=== PATIENT | female | born 1950 | race Caucasian/White ===

== ENCOUNTER 2018-05-07 16:20 | Emergency (ER) | payer MEDICARE ==
[2018-05-07] MEDS ORDERED: Ketorolac Tromethamine 30 MG/ML VIAL ONE (19:27)
[2018-05-07] MEDS ORDERED: Diazepam 5 MG TAB ONE (19:27)
--- NOTE | 2018-05-07 19:59 | RAD ---
RADIOGRAPH LUMBAR SPINE 3 VIEWS: 05/07/18 HISTORY: 67-year-old female with right sided low back pain for one week. COMPARISON: None. FINDINGS: There is mild left-convex curvature of the mid lumbar spine. There are transitional levels at the tho racolumbar junction and lumbosacral junction. For the purposes of this report, the level with bilater ally tiny, accessory ribs will be designated as L1, and the level with symmetrically slightly small b ilateral ribs will be designated as T12. The level at the lumbosacral junction will be designated as L5. Minimal anterior wedge compression deformity of T11 of indeterminate age, probably chronic. The lumba r proper vertebral body heights are maintained. At L5-S1, there is severe disc space narrowing with sclerosis. There are severe bilateral degenerativ e facet changes at L3-4, L4-5 and L5-S1. Mild grade I anterolisthesis of L4 on L5 with minimal disc s pace narrowing at that level. The rest of the disc spaces are maintained. Incompletely visualized, there is severe joint space narrowing of the left hip, with sclerosis. IMPRESSION: 1. Transitional levels at the thoracolumbar junction and lumbosacral junction. 2. Lumbar spondylosis consisting of severe facet osteoarthrosis in the mid and lower lumbar spin e. 3. Lumbar spondylosis consisting of severe degenerative disease at the lumbosacral junction. 4. Mild grade 1 spondylolisthesis at lower lumbar spine. 5. Osteoarthrosis of the bilateral hips, probably severe on the left, incompletely visualized. MAREK [] POS: FLY
--- NOTE | 2018-05-07 20:05 | RAD ---
RADIOGRAPH RIGHT HIP 2 VIEWS: 05/07/18 HISTORY: 67-year-old female with right hip pain. FINDINGS: No fracture or dislocation. Moderate medial-central and inferior joint space narrowing. Small inferio r subcapital and acetabular osteophytes. Superolateral aspect of the hip joint space is maintained, b ut there are small osteophytes there also. Femoral head contour is maintained. Mild to moderate degen erative changes at SI joint. Coarse trabeculae diffusely. IMPRESSION: 1. No fracture. 2. Moderate osteoarthrosis of the right hip. POS: [facility]
== END 2018-05-07 21:20 | disposition home or self-care (01) ==
LOC: ERS 16:20
DX: M54.5 Low back pain (principal); M25.551 Pain in right hip; I10 Essential (primary) hypertension; Z85.038 Personal history of other malignant neoplasm of large intestine; Z79.899 Other long term (current) drug therapy
CPT/HCPCS: 72100; 96372; J1885

== ENCOUNTER 2018-05-15 12:44 | Outpatient (CLI) | payer MEDICARE ==
--- NOTE | 2018-05-15 14:31 | RAD ---
CHEST 2 VIEWS: HISTORY: Preop. FINDINGS: Cardiac silhouette and pulmonary vasculature are unremarkable. Mediastinum midline. Mild linear ate lectasis at the right lung base. NO confluent airspace consolidation, pneumothorax, or pleural fluid . Degenerative changes thoracic spine. IMPRESSION: No active cardiopulmonary abnormalities are demonstrated. POS: [facility]
[2018-05-15 14:52] LABS: #Basophils 0.1 thou/uL (0.0-0.2); #Eosinphils 0.1 thou/uL (0.0-0.7); #Lymphocytes 2.8 thou/uL (1.20-3.40); #Monocytes 1.1 thou/uL (0.11-0.59); #Neutrophils 5.9 thou/uL (1.40-6.50); %Basophils 0.8 % (0.0-1.0); %Eosinophils 1.4 % (0.0-10.0); %Lymphocytes 28.2 % (21.0-51.0); %Neutrophils 58.6 % (42.0-75.0); Hemoglobin 13.5 g/dL (12.0-16.0); Mean Corpuscular Hemoglobin 28.8 pg (27.0-31.0); Mean Corpuscular Volume 87.1 fL (78.0-98.0); Mean Platelet Volume 7.5 fL (7.4-10.4); Platelet Count 301 thou/uL (130-400); RBC Distribution Width 13.5 % (11.5-14.5); Red Blood Cell (RBC) Count 4.71 mill/uL (4.20-5.40); White Blood Cell (WBC) Count 10.1 thou/uL (4.8-10.8)
[2018-05-15 14:56] LABS: Prothrombin Time 13.3 SEC (12.0-14.7)
[2018-05-15 14:58] LABS: Bilirubin Negative (Negative); Blood, Urine Trace (Negative); Clarity CLOUDY (Clear); Glucose, Urine (Dipstick) Negative (Negative); Leukocyte Large (Negative); Nitrite Positive (Negative); Protein, Urine (Dipstick) Negative (Neg-Trace); Specific Gravity, Urine 1.008 (1.002-1.036); Urobilinogen 0.2 mg/dL (0.2-1.0)
[2018-05-15 15:01] LABS: Bacteria/HPF 2+ HPF (None Seen); Hyaline Casts/LPF 0-3 HYALINE CAST LPF (0-3 Hyaline); Pathc Cast-AUWi Flag 0.14 (0-2.49); Squamous Epithelial 0-3 HPF (0-3)
[2018-05-15 15:09] LABS: Anion Gap 11 mmol/L (10-20); BUN (Urea Nitrogen) 15 mg/dL (9.8-20.1); Calc. Creatinine Clearance 0 mL/min (70-130); Calcium 9.4 mg/dL (7.8-10.44); Carbon Dioxide 28 mmol/L (23-31); Chloride 96 mmol/L (98-107); Estimated GFR-MDRD 57; Glucose 98 mg/dL (80-115); Potassium 3.2 mmol/L (3.5-5.1); Sodium 132 mmol/L (136-145)
== END 2018-05-15 12:45 | disposition home or self-care (01) ==
LOC: LABBT 12:44
PROVIDERS: ATTEND Orthopaedic Surgery
DX: Z01.818 Encounter for other preprocedural examination (principal); M87.9 Osteonecrosis, unspecified
CPT/HCPCS: 71046; 80048; 81001; 85025; 85610; 87081; 93005; 93010

== ENCOUNTER 2018-05-15 13:15 | Inpatient (IN) | payer MEDICARE ==
[2018-05-15 13:07] VITALS: BMI 32.3
[2018-05-20] MEDS ORDERED: CEFAZOLIN/Water 2 GM/20 ML SYRINGE ONE (09:41)
[2018-05-20] MEDS ORDERED: Sodium Chloride 0.9% 100 ML ONE (09:41)
[2018-05-20] MEDS ORDERED: Vancomycin HCl 1.5 GM in Sodium Chloride 0.9% 250 ML 300 ML IVPB SCH (09:45)
[2018-05-20] MEDS ORDERED: Fentanyl 100 MCG/2 ML VIAL ONE ×2 (10:26→11:37)
[2018-05-20] MEDS ORDERED: Midazolam HCl 2 mg/2 ml Vial ONE (10:26)
[2018-05-20] MEDS ORDERED: diphenhydrAMINE 25 MG CAP PO PRN ×2 (10:29→11:45)
[2018-05-20] MEDS ORDERED: HYDROcodone/Acetaminophen 10/325 mg Tablet PO PRN ×2 (10:29)
[2018-05-20] MEDS ORDERED: Acetaminophen 325 MG TAB PO PRN (10:29)
[2018-05-20] MEDS ORDERED: Zolpidem Tartrate 5 MG TAB PO PRN ×2 (10:29→11:45)
[2018-05-20] MEDS ORDERED: traMADol HCl 50 MG TAB PO PRN ×3 (10:29→11:45)
[2018-05-20] MEDS ORDERED: Promethazine HCl 25 MG/ML VIAL IM PRN ×2 (10:29→11:45)
[2018-05-20] MEDS ORDERED: Ondansetron HCl/PF 4 MG/2 ML Vial IVP PRN ×2 (10:29→11:45)
[2018-05-20] MEDS ORDERED: Scopolamine 1.5 mg/72 hour Patch ONE (10:30)
[2018-05-20] MEDS ORDERED: Cyclobenzaprine 10 MG TAB PO PRN (10:31)
[2018-05-20] MEDS ORDERED: PROPOFOL 200 MG/20 ML VIAL ONE (11:39)
[2018-05-20] MEDS ORDERED: Dexamethasone 20 MG/5 ML VIAL ONE (11:39)
[2018-05-20] MEDS ORDERED: PHENYLEPHRINE-NS 100 MCG/ML 10 ML SYRINGE ONE ×2 (11:39→12:36)
[2018-05-20] MEDS ORDERED: Lidocaine 1% PF 5 ML VIAL ONE (11:39)
[2018-05-20] MEDS ORDERED: Glycopyrrolate 0.2 MG/ML 5 ML SYRINGE ONE (11:39)
[2018-05-20] MEDS ORDERED: Ondansetron HCl/PF 4 MG/2 ML Vial ONE (11:39)
[2018-05-20] MEDS ORDERED: ePHEDrine/0.9% NaCl/PF SYRINGE 50 mg/10 ml ONE (11:39)
[2018-05-20] MEDS ORDERED: Naloxone HCl 0.4 mg/ml Vial IVP PRN (11:45)
[2018-05-20] MEDS ORDERED: HYDROcodone/Acetaminophen 5/325 mg Tablet PO PRN ×2 (11:45)
[2018-05-20] MEDS ORDERED: Promethazine HCl 25 MG SUPP PR PRN (11:45)
[2018-05-20] MEDS ORDERED: Hydrocerin (Eucerin) Cream 120 gm Jar TOP PRN (11:45)
[2018-05-20] MEDS ORDERED: Naloxone HCl 0.4 mg/ml Vial IV PRN (11:45)
[2018-05-20] MEDS ORDERED: diphenhydrAMINE 50 MG/ML VIAL IM PRN (11:45)
[2018-05-20] MEDS ORDERED: fentaNYL Citrate/PF 1,250 MCG, Bupivacaine 25 ML in Sodium Chloride 0.9% 250 ML 200 ML EPIDURAL SCH (11:45)
[2018-05-20] MEDS ORDERED: diphenhydrAMINE 50 MG/ML VIAL IVP PRN (11:45)
[2018-05-20] MEDS ORDERED: Bupivacaine 0.25% 10 ML VIAL EPIDURAL PRN (11:45)
[2018-05-20] MEDS ORDERED: Bupivacaine/Epinephrine 0.25% 30 ML VIAL ONE (13:04)
[2018-05-20] MEDS ORDERED: SUGAMMADEX SODIUM 500 MG/5 ML VIAL ONE (13:20)
--- NOTE | 2018-05-20 13:52 | OP ---
DATE OF PROCEDURE: 05/20/2018 PREOPERATIVE DIAGNOSIS: End-stage bicompartmental severe degenerative osteoarthritis, left hip. POSTOPERATIVE DIAGNOSIS: End-stage bicompartmental severe degenerative osteoarthritis, left hip. PROCEDURE: Press-fit left total hip arthroplasty. SURGEON: Don Teague M.D. CROWNING HAMMER OPERATOR: Robert Hernandes PA-C. ANESTHESIA: General via endotracheal tube augmented with indwelling epidural. COMPONENTS USED: [employer] size 4 Accolade press-fit hip stem with a 54 mm press fit Trita nium hemispherical cluster hole shell with a 36 mm 10 degree polyethylene fixed bearing insert, and - 5 neck length V40 metallic femoral head. ESTIMATED BLOOD LOSS: 100 mL. FINDINGS: End-stage severe degenerative bicompartmental disease, bone on bone arthrosis, periarticul ar osteophyte formation, large serous effusion, hypertrophic synovium. DRAINS: None. SPECIMENS: None. COMPLICATIONS: None. COUNTS: Correct. INDICATIONS FOR SURGERY: Lizzy is a 67-year-old white female who has had progressive left hip, groin , and thigh pain upon standing and walking for the last 10 years. She has failed conservative manage ment and elected to proceed with total hip arthroplasty as definitive treatment of her pain. PROCEDURE IN DETAIL: After informed consent was obtained in the preoperative holding area, the patie nt was taken to the operative suite where general anesthesia was induced. The patient was then posit ioned in the lateral decubitus position. The hip was then prepped and draped in usual sterile fashio n. The patient received preoperative antibiotics. Prior to incision, time-out was called and all me mbers of the surgical team agreed upon site, surgeon, and patient. After this, a longitudinal incisi on was made directly over the trochanter, noted by palpation extending 2 fingerbreadths above and bel ow the trochanter. The deeper subcutaneous layer was undermined with Bovie electrocautery. The ilio tibial band was encountered and incised sharply and the plane below this was developed bluntly. A roger retractor was placed to hold this opened. The lateral aspect of the trochanter and the abduct or muscles were encountered and then reflected anteriorly off the trochanter using Bovie electrocaute ry. Once this was completed, the anterior capsule was then encountered and identified and copious ca psulotomy was carried out, exposing the femoral neck and head. Dislocation maneuver was then performe d and an in situ provisional neck cut was then made using the oscillating saw. Attention was then tu rned to acetabular preparation and sequential reaming was carried out up to the appropriate diameter and a trial was then malleted into place with good firm resistance and no pullout. The permanent greg tabular shell was then malleted squarely into place, as was the appropriate liner. Once completed, t he wound was copiously irrigated and attention was then turned to femoral preparation. Flexion and ex ternal rotation was performed of the exposed thigh and femoral elevators were then placed at the prox imal aspect of the wound. Canal finder was used to establish the length of the canal and sequential reaming was carried out, followed by broaching. Once the appropriate stability was established with the trial broaches with both flexion, extension and rotational stability, we did trial with neutral a nd 2 mm offset incremental necks. Once the appropriate size was decided upon, with good stability no jj with flexion, extension, internal and external rotation and shuck being negative, we removed the femoral trial broach and malletted into place the permanent prosthesis with good firm fit, which was also stable to rotation. Again, the hip felt very stable to flexion, extension, internal and externa l rotation. Leg lengths appeared near anatomic clinically and we were quite happy with prosthesis pl acement. Copious irrigation was then carried out through the entirety of the wound. Primary closure of the abductors was accomplished with interrupted #2 Vicryl [id number] stitches and the IT ban d was then closed with interrupted #2 Vicryl, oversewn with a #2 running barbed Quill stitch. Subcut aneous fascia was closed with running barbed Quill stitch and a subcuticular Monocryl barbed Quill st itch was used for skin closure and augmented with skin cement. A sterile dressing was applied. The p rocedure was terminated without any complication. All counts were correct. The patient was awakened in the operative suite and taken to the recovery room in stable condition.
[2018-05-20] MEDS ORDERED: CEFAZOLIN/Water 2 GM/20 ML SYRINGE SLOW IVP SCH (14:00)
--- NOTE | 2018-05-20 15:25 | RAD ---
TWO VIEWS LEFT HIP: Date: 05-20-18 History: Post op total hip replacement. FINDINGS: Post-surgical changes related to placement of a left total hip prosthesis is noted. There is no hardw are complication seen. No fracture or dislocation is identified. Surgical clips overlie the left michael pelvis. IMPRESSION: Post-surgical change related to recent left total hip prosthesis. POS: FL[facility]
[2018-05-20] MEDS: Ketorolac Tromethamine 30 MG/ML VIAL IVP SCH ×2 (16:30→21:03)
[2018-05-20] MEDS: Sodium Chloride 0.9% 1,000 ML IV SCH ×2 (17:30→21:09)
[2018-05-20] MEDS ORDERED: Prevnar 13-Val Conj/PF 0.5 ML SYRINGE IM ONE (18:15)
[2018-05-20] MEDS: Aspirin 325 MG TAB PO SCH (21:03)
[2018-05-20] MEDS: CEFAZOLIN/Water 2 GM/20 ML SYRINGE SLOW IVP SCH (21:03)
[2018-05-21] MEDS: Ketorolac Tromethamine 30 MG/ML VIAL IVP SCH ×3 (05:20→21:46)
[2018-05-21] MEDS: CEFAZOLIN/Water 2 GM/20 ML SYRINGE SLOW IVP SCH (05:21)
[2018-05-21] MEDS: cefTRIAXone\\ROCEPHIN 1 GM in Sodium Chloride 0.9% 100 ML IVPB SCH (05:30)
[2018-05-21 05:43] LABS: Hemoglobin 11.4 g/dL (12.0-16.0); Mean Corpuscular HGB CONC 33.8 g/dL (32.0-36.0); Mean Corpuscular Hemoglobin 29.1 pg (27.0-31.0); Mean Corpuscular Volume 86.2 fL (78.0-98.0); Mean Platelet Volume 7.2 fL (7.4-10.4); Platelet Count 262 thou/uL (130-400); Red Blood Cell (RBC) Count 3.91 mill/uL (4.20-5.40); White Blood Cell (WBC) Count 12.5 thou/uL (4.8-10.8)
[2018-05-21 06:05] LABS: Anion Gap 11 mmol/L (10-20); BUN (Urea Nitrogen) 12 mg/dL (9.8-20.1); Calc. Creatinine Clearance 84 mL/min (70-130); Calcium 8.6 mg/dL (7.8-10.44); Carbon Dioxide 22 mmol/L (23-31); Chloride 95 mmol/L (98-107); Estimated GFR-MDRD 60; Glucose 102 mg/dL (80-115); Potassium 4.4 mmol/L (3.5-5.1); Sodium 124 mmol/L (136-145)
[2018-05-21] MEDS: Sodium Chloride 0.9% 1,000 ML IV SCH ×2 (06:12→10:35)
--- NOTE | 2018-05-21 08:11 | PRG ---
DATE OF SERVICE: 05/21/2018 SUBJECTIVE: Lizzy is a 67-year-old white female, who is postop day 1 from left total hip arthroplast y. She is comfortable this morning, doing relatively well. Postoperative x-rays demonstrate good cu p position and stent placement. OBJECTIVE: VITAL SIGNS: Temperature 97.8, pulse 80, respiratory rate 16, blood pressure is 119/71. GENERAL: She is alert and oriented to person, place, time, and situation. Grossly nonfocal. Hemogl obin and hematocrit 11.4 and 33.7. ASSESSMENT: A 67-year-old female, 1. Postoperative day #1, left total hip arthroplasty, doing well. 2. Mild asymptomatic, postoperative hemorrhagic anemia. PLAN: Continue current care. Probable transfer to either inpatient rehabilitation or skilled facili ty based on performance with physical therapy.
[2018-05-21] MEDS ORDERED: Amlodipine 5 MG TAB PO SCH ×3 (09:00→11:00)
[2018-05-21] MEDS: Aspirin 325 MG TAB PO SCH ×2 (09:05→19:54)
[2018-05-21] MEDS: Ferrous Gluconate 324 MG TAB PO SCH ×2 (09:05→16:59)
[2018-05-21] MEDS: Senokot S 8.6-50 MG TAB PO SCH ×2 (09:05→19:54)
[2018-05-21] MEDS: PARoxetine 20 MG TAB PO SCH (09:06)
[2018-05-21] MEDS: Multivitamin W/ Minerals 1 TAB PO SCH (09:06)
--- NOTE | 2018-05-21 10:37 | CON ---
TIME OF EVALUATION: 8:50 p.m. CODE STATUS: FULL CODE. CHIEF COMPLAINT: Left hip pain. HISTORY OF PRESENT ILLNESS: This is a 67-year-old female patient with a long history of having colon cancer in remission, she had some radiation protocol for cancer and after that she reported that her hips got affected because of the radiation with significant pain in both sides. She has been resolving with medical treatment since the symptoms presented years ago; however, in the past few weeks, the patient has been unable to stand up and walk due to severe pain, located in the left groin area, radiating to the hip. Pain is severe. No clear triggers other than moving, and trying to stand up, only alleviating factor is doing less physical activity. Symptoms were severe, the patient was admitted by Dr. Teague for hip surgery that has been done today. We have been called to see the patient to assist with medical management during inpatient stay. REVIEW OF SYSTEMS: The patient reported no fever, no chills, no generalized weakness. Respiratory: No cough, no sputum production or shortness of breath. Cardiovascular: No chest pain, palpitations, shortness of breath. Gastrointestinal: No nausea, no vomiting, diarrhea or abdominal pain. Central Nervous System: No dizziness, headache, feeling lightheaded. Genitourinary: No burning on urination. Extremities: The patient has no leg swelling. The patient has bilateral hip pain mostly on the left side as reported in the HPI. All systems were reviewed and negative except for the findings mentioned above. PAST MEDICAL HISTORY: Colon cancer in remission, bilateral chronic hip pain. SOCIAL HISTORY: The patient lives with family. PAST SURGICAL HISTORY: The patient had a hysterectomy, colon cancer surgery. FAMILY HISTORY: Father, not reported. Mother, breast cancer. ALLERGIES: To ADHESIVE TAPE. REPORTED MEDICATIONS: Naproxen, amlodipine, cyclobenzaprine, olmesartan, and paroxetine. PHYSICAL EXAMINATION: VITAL SIGNS: Temperature 97.8, heart rate 80, respiratory rate was 16, oxygen saturation was 94, blood pressure 119/71. GENERAL: The patient was alert, oriented, in a good mood. No acute distress. HEENT: Eyes: Normal conjunctivae. Moist oral mucosa anicteric. NECK: No JVD. RESPIRATORY: Bilateral air entry. No rales, no wheezing. The patient has symmetrical expansion. CARDIOVASCULAR: Normal rate, regular rhythm. No murmurs, no gallop, no edema. ABDOMEN: Soft, normal bowel sounds. MUSCULOSKELETAL: The patient has left hip surgery, still having some tenderness , but pain is in control, mostly worsened with movement. SKIN: Warm and intact. No pallor, no rash, no redness, surgical area since recovering well. NEUROLOGIC: Baseline sensory. No evidence of any new focal weakness. Baseline speech. Cranial nerve seems to be intact. PSYCHIATRIC: The patient is in good mood. No anxiety. Oriented, optimal judgment. LABORATORY DATA: Labs were reviewed. White count 10.1, RBC 4.71, hemoglobin 13 , platelet count 301. Coagulation: INR 1.0, PT 13.3. Chemistry: Sodium 132, potassium 3.2, chloride 96, carbon dioxide 28, anion gap 11, BUN 15, creatinine 0.98, GFR 57, glucose 98, calcium 9.4. Urine was reviewed. The patient has positive white count in urine. This was done on 05/15/2018. Hip x-ray was reviewed. The patient had postsurgical change related to recent left total hip prosthesis. Last chest x-ray on records showed that the patient has no active cardiopulmonary abnormalities. Lumbar spine x-ray showed that the patient had transitional levels of the thoracolumbar junction and lumbosacral junction. Lumbar spondylosis consisted of severe facet osteoarthrosis in the mid and lower lumbar spine. Lumbar spondylosis consisted of severe degenerative disease at the lumbosacral junction. Mild grade I spondylolisthesis and lower lumbar spine, osteoarthrosis of the bilateral hips, probably severe on the left , incompletely visualized. ASSESSMENT AND PLAN: The patient was admitted by Dr. Teague to the hospital for the following medical problems. 1. Left hip replacement, patient has tolerated the procedure very well. She is in very good mood, pain in control. Surgery is managing this problem. 2. Possible urinary tract infection. The patient has a positive urine a few days ago, we will do the urine culture, for now we will treat with Rocephin, follow cultures,adjust treatment later as per cultures sensitivity. 3. History of high blood pressure, continue amlodipine, olmesartan, seems to be in control at this point. 4. DVT prophylaxis as per Surgery recommendations. 5. Hypokalemia in the last labs was on 05/15/2018. We will repeat BMP, will replace electrolytes as needed. 6. Hyponatremia. Sodium 132, this is mild, we will repeat the BMP for further treatment. Thank you for inviting us to participate in your patient's care, please feel free to contact us with any questions. MTDD
--- NOTE | 2018-05-21 20:58 | PDOC.PN ---
- Subjective Encounter Start Date: 05/21/18 Encounter Start Time: 13:00 Subjective: pt up in bed no complains - Objective Vital Signs & Weight: Vital Signs (12 hours) Temp Pulse Resp BP BP BP Pulse Ox 05/21/18 20:21 98.3 F 78 20 98/63 90 L 05/21/18 16:32 98.2 F 82 12 103/56 L 97 05/21/18 12:09 98.4 F 79 18 123/65 95 05/21/18 11:30 82 105/63 05/21/18 09:15 111/69 94 L 05/21/18 09:05 82 107/60 05/21/18 09:00 107/60 05/21/18 08:58 62/42 L Weight Admit Weight 200 lb Weight 200 lb I&O: 05/20/18 05/21/18 05/22/18 06:59 06:59 06:59 Intake Total 1450 0 Output Total 900 800 Balance 550 -800 Result Diagrams: 05/22/18 05:22 05/22/18 12:55 Phys Exam - Physical Examination HEENT: PERRLA, moist MMs, sclera anicteric, TM's clear, oral pharynx no lesions , 2+ tonsils Neck: no nodes, no JVD, supple, full ROM Respiratory: no wheezing, no rales, no rhonchi, wheezing present, clear to auscultation bilateral Cardiovascular: RRR, no significant murmur, no rub, gallop, irregular Gastrointestinal: soft, non-tender, no distention, positive bowel sounds Dx/Plan (1) UTI (urinary tract infection) Status: Acute (2) Hyponatremia Code(s): E87.1 - HYPO-OSMOLALITY AND HYPONATREMIA Status: Acute (3) Hypotension Status: Acute - Plan hh is stable -: will continue abx for now -: will put holding parameters on her bp meds * . Review of Systems - Review of Systems ENT: negative: Ear Pain, Ear Discharge, Nose Pain, Nose Discharge, Nose Congestion, Mouth Pain, Mouth Swelling, Throat Pain, Throat Swelling, Other Respiratory: negative: Cough, Dry, Shortness of Breath, Hemoptysis, SOB with Excertion, Pleuritic Pain, Sputum, Wheezing Cardiovascular: negative: chest pain, palpitations, orthopnea, paroxysmal nocturnal dyspnea, edema, light headedness, other Gastrointestinal: negative: Nausea, Vomiting, Abdominal Pain, Diarrhea, Constipation, Melena, Hematochezia, Other Genitourinary: negative: Dysuria, Frequency, Incontinence, Hematuria, Retention , Other - Medications/Allergies Allergies/Adverse Reactions: Allergies Allergy/AdvReac Type Severity Reaction Status Date / Time adhesive Allergy rash, bumps Verified 05/20/18 18:08 Medications: Current Medications Acetaminophen (Tylenol) 650 mg PO Q4H PRN PRN Reason: CHIRINOS/ T > 101F; Mild Pain (1-3) Hydrocodone Bitart/Acetaminophen ([place] 5/325) 1 tab PO Q4H PRN PRN Reason: Mild Pain 0-3 Last Admin: 05/22/18 17:16 Dose: 1 tab Hydrocodone Bitart/Acetaminophen ([place] 5/325) 2 tab PO Q4H PRN PRN Reason: For Moderate Pain 4-6 Aspirin (Aspirin) 325 mg PO BID [facility] Last Admin: 05/22/18 08:25 Dose: 325 mg Cephalexin (Keflex) 250 mg PO Q6HR [facility] Last Admin: 05/22/18 17:16 Dose: 250 mg Cholecalciferol (Vitamin D3) 1,000 units PO DAILY [facility] Last Admin: 05/22/18 08:25 Dose: 1,000 units Cyclobenzaprine HCl (Flexeril) 10 mg PO DAILYPRN PRN PRN Reason: MUSCLE SPASM Diphenhydramine HCl (Benadryl) 25 mg PO Q3H PRN PRN Reason: Itching Diphenhydramine HCl (Benadryl) 25 mg IM Q3H PRN PRN Reason: Itching Diphenhydramine HCl (Benadryl) 25 mg IVP Q3H PRN PRN Reason: Itching Emollient Cream (Hydrocerin Cream) 0 gm TOP PRN PRN PRN Reason: Itching Ferrous Gluconate (Fergon) 324 mg PO BID-[facility] Last Admin: 05/22/18 17:16 Dose: 324 mg Vancomycin HCl 1.5 gm/ Sodium (Chloride) 300 mls @ 200 mls/hr IVPB ONCALL-OR [facility] Iron/Minerals/Multivitamins (Theragran M) 1 tab PO DAILY [facility] Last Admin: 05/22/18 08:25 Dose: 1 tab Naloxone HCl (Narcan) 0.2 mg IV Q5MIN PRN PRN Reason: RR <=8 OR OBTUNDED/UNAROUSABLE Naloxone HCl (Narcan) 0.1 mg IVP Q15MIN PRN PRN Reason: URINARY RETENTION Olmesartan (Benicar) 20 mg PO QAM [facility] Ondansetron HCl (Zofran) 4 mg IVP Q6H PRN PRN Reason: Nausea/Vomiting Promethazine HCl (Phenergan) 12.5 mg IM Q4H PRN PRN Reason: Nausea Promethazine HCl (Phenergan Suppository) 25 mg TN Q4H PRN PRN Reason: Nausea/Vomiting Senna/Docusate Sodium (Senokot S) 2 tab PO BID [facility] Last Admin: 05/22/18 08:25 Dose: 2 tab Sodium Chloride (Flush - Normal Saline) 10 ml IVF PRN PRN PRN Reason: Saline Flush Tramadol HCl (Ultram) 50 mg PO Q6H PRN PRN Reason: Mild Pain 1-3 Tramadol HCl (Ultram) 100 mg PO Q6H PRN PRN Reason: Moderate Pain 4-6 Zolpidem Tartrate (Ambien) 5 mg PO HSPRN PRN PRN Reason: Insomnia
[2018-05-22] MEDS: Sodium Chloride 0.9% 1,000 ML IV SCH ×2 (01:46→11:01)
[2018-05-22] MEDS: Ketorolac Tromethamine 30 MG/ML VIAL IVP SCH ×3 (05:50→14:13)
[2018-05-22 05:51] LABS: Hemoglobin 10.2 g/dL (12.0-16.0); Mean Corpuscular HGB CONC 34.2 g/dL (32.0-36.0); Mean Corpuscular Hemoglobin 29.5 pg (27.0-31.0); Mean Corpuscular Volume 86.2 fL (78.0-98.0); Mean Platelet Volume 7.5 fL (7.4-10.4); Platelet Count 212 thou/uL (130-400); RBC Distribution Width 13.4 % (11.5-14.5); Red Blood Cell (RBC) Count 3.48 mill/uL (4.20-5.40); White Blood Cell (WBC) Count 9.9 thou/uL (4.8-10.8)
[2018-05-22] MEDS: cefTRIAXone\\ROCEPHIN 1 GM in Sodium Chloride 0.9% 100 ML IVPB SCH (05:51)
[2018-05-22] MEDS: Aspirin 325 MG TAB PO SCH ×2 (08:25→20:01)
[2018-05-22] MEDS: PARoxetine 20 MG TAB PO SCH (08:25)
[2018-05-22] MEDS: Ferrous Gluconate 324 MG TAB PO SCH ×2 (08:25→17:16)
[2018-05-22] MEDS: Senokot S 8.6-50 MG TAB PO SCH ×2 (08:25→20:01)
[2018-05-22] MEDS: Multivitamin W/ Minerals 1 TAB PO SCH (08:25)
[2018-05-22] MEDS ORDERED: Amlodipine 5 MG TAB PO SCH (09:00)
[2018-05-22] MEDS ORDERED: Sodium Chloride 0.9% 1,000 ML IV SCH (12:45)
[2018-05-22 13:45] LABS: Anion Gap 9 mmol/L (10-20); BUN (Urea Nitrogen) 14 mg/dL (9.8-20.1); Calc. Creatinine Clearance 69 mL/min (70-130); Calcium 8.4 mg/dL (7.8-10.44); Carbon Dioxide 26 mmol/L (23-31); Chloride 91 mmol/L (98-107); Estimated GFR-MDRD 48; Glucose 110 mg/dL (80-115); Potassium 3.9 mmol/L (3.5-5.1); Sodium 122 mmol/L (136-145)
[2018-05-22] MEDS: Cephalexin 250 MG CAP PO SCH ×2 (17:16→22:50)
--- NOTE | 2018-05-22 18:14 | PDOC.PN ---
- Subjective Encounter Start Date: 05/22/18 Encounter Start Time: 13:00 Subjective: pt up in bed no complains - Objective Vital Signs & Weight: Vital Signs (12 hours) Temp Pulse Resp BP BP BP BP 05/22/18 16:15 98.6 F 90 16 05/22/18 11:45 98.4 F 94 14 05/22/18 09:28 111/70 105/70 129/71 05/22/18 08:25 98 108/66 05/22/18 08:20 99.0 F 93 14 05/22/18 08:05 98.9 F 84 16 BP Pulse Ox Pulse Ox 05/22/18 16:15 106/68 95 05/22/18 11:45 109/69 96 05/22/18 09:28 88 L 05/22/18 08:25 05/22/18 08:20 115/51 L 93 L 05/22/18 08:05 93 L Weight Admit Weight 200 lb Weight 200 lb I&O: 05/21/18 05/22/18 05/23/18 06:59 06:59 06:59 Intake Total 1450 500 Output Total 900 1250 800 Balance 550 750 -800 Result Diagrams: 05/22/18 05:22 05/22/18 12:55 Phys Exam - Physical Examination HEENT: PERRLA, moist MMs, sclera anicteric, TM's clear, oral pharynx no lesions , 2+ tonsils Neck: no nodes, no JVD, supple, full ROM Respiratory: no wheezing, no rales, no rhonchi, wheezing present, clear to auscultation bilateral Cardiovascular: RRR, no significant murmur, no rub, gallop, irregular Gastrointestinal: soft, non-tender, no distention, positive bowel sounds left hip dressing intact Dx/Plan (1) Hyponatremia Code(s): E87.1 - HYPO-OSMOLALITY AND HYPONATREMIA Status: Acute (2) UTI (urinary tract infection) Status: Acute (3) Hypotension Status: Acute - Plan pt's hyponatremia most likely due to ssri vs SIADH. will hold -: her ssri for now. will check serum osmolarity. put pt on fluid restriction. -: i do not think she is dehydrated. Her fluids are off. -: she has lost 9lbs and had her bp meds decreased -: She is on tramadol which can decrease seizure thereshold she urine that was collected 05/15 indicated uti and according to her was not tx with abx. will tx her with abx for now. mild yarely could be due to her transient low bp. her bp meds are on hold. HH is stable. Review of Systems - Review of Systems ENT: negative: Ear Pain, Ear Discharge, Nose Pain, Nose Discharge, Nose Congestion, Mouth Pain, Mouth Swelling, Throat Pain, Throat Swelling, Other Respiratory: negative: Cough, Dry, Shortness of Breath, Hemoptysis, SOB with Excertion, Pleuritic Pain, Sputum, Wheezing Cardiovascular: negative: chest pain, palpitations, orthopnea, paroxysmal nocturnal dyspnea, edema, light headedness, other Genitourinary: negative: Dysuria, Frequency, Incontinence, Hematuria, Retention , Other - Medications/Allergies Allergies/Adverse Reactions: Allergies Allergy/AdvReac Type Severity Reaction Status Date / Time adhesive Allergy rash, bumps Verified 05/20/18 18:08 Medications: Current Medications Acetaminophen (Tylenol) 650 mg PO Q4H PRN PRN Reason: CHIRINOS/ T > 101F; Mild Pain (1-3) Hydrocodone Bitart/Acetaminophen ([place] 5/325) 1 tab PO Q4H PRN PRN Reason: Mild Pain 0-3 Last Admin: 05/22/18 17:16 Dose: 1 tab Hydrocodone Bitart/Acetaminophen ([place] 5/325) 2 tab PO Q4H PRN PRN Reason: For Moderate Pain 4-6 Aspirin (Aspirin) 325 mg PO BID [facility] Last Admin: 05/22/18 08:25 Dose: 325 mg Cephalexin (Keflex) 250 mg PO Q6HR [facility] Last Admin: 05/22/18 17:16 Dose: 250 mg Cholecalciferol (Vitamin D3) 1,000 units PO DAILY [facility] Last Admin: 05/22/18 08:25 Dose: 1,000 units Cyclobenzaprine HCl (Flexeril) 10 mg PO DAILYPRN PRN PRN Reason: MUSCLE SPASM Diphenhydramine HCl (Benadryl) 25 mg PO Q3H PRN PRN Reason: Itching Diphenhydramine HCl (Benadryl) 25 mg IM Q3H PRN PRN Reason: Itching Diphenhydramine HCl (Benadryl) 25 mg IVP Q3H PRN PRN Reason: Itching Emollient Cream (Hydrocerin Cream) 0 gm TOP PRN PRN PRN Reason: Itching Ferrous Gluconate (Fergon) 324 mg PO BID-[facility] Last Admin: 05/22/18 17:16 Dose: 324 mg Vancomycin HCl 1.5 gm/ Sodium (Chloride) 300 mls @ 200 mls/hr IVPB ONCALL-OR [facility] Iron/Minerals/Multivitamins (Theragran M) 1 tab PO DAILY [facility] Last Admin: 05/22/18 08:25 Dose: 1 tab Naloxone HCl (Narcan) 0.2 mg IV Q5MIN PRN PRN Reason: RR <=8 OR OBTUNDED/UNAROUSABLE Naloxone HCl (Narcan) 0.1 mg IVP Q15MIN PRN PRN Reason: URINARY RETENTION Olmesartan ([facility]) [facility] [place] Ondansetron HCl (Zofran) 4 mg IVP Q6H PRN PRN Reason: Nausea/Vomiting Promethazine HCl (Phenergan) 12.5 mg IM Q4H PRN PRN Reason: Nausea Promethazine HCl (Phenergan Suppository) 25 mg DC Q4H PRN PRN Reason: Nausea/Vomiting Senna/Docusate Sodium (Senokot S) 2 tab PO BID [facility] Last Admin: 05/22/18 08:25 Dose: 2 tab Sodium Chloride (Flush - Normal Saline) 10 ml IVF PRN PRN PRN Reason: Saline Flush Tramadol HCl (Ultram) 50 mg PO Q6H PRN PRN Reason: Mild Pain 1-3 Tramadol HCl (Ultram) 100 mg PO Q6H PRN PRN Reason: Moderate Pain 4-6 Zolpidem Tartrate (Ambien) 5 mg PO HSPRN PRN PRN Reason: Insomnia
[2018-05-22 22:29] LABS: Anion Gap 9 mmol/L (10-20); BUN (Urea Nitrogen) 13 mg/dL (9.8-20.1); Calc. Creatinine Clearance 79 mL/min (70-130); Calcium 8.7 mg/dL (7.8-10.44); Carbon Dioxide 28 mmol/L (23-31); Chloride 93 mmol/L (98-107); Estimated GFR-MDRD 56; Glucose 119 mg/dL (80-115); Potassium 4.9 mmol/L (3.5-5.1); Sodium 125 mmol/L (136-145)
[2018-05-23] MEDS: Cephalexin 250 MG CAP PO SCH ×4 (05:34→22:53)
[2018-05-23 05:49] LABS: Hemoglobin 10.5 g/dL (12.0-16.0); Mean Corpuscular HGB CONC 33.6 g/dL (32.0-36.0); Mean Corpuscular Hemoglobin 29.4 pg (27.0-31.0); Mean Corpuscular Volume 87.6 fL (78.0-98.0); Mean Platelet Volume 7.9 fL (7.4-10.4); Platelet Count 185 thou/uL (130-400); RBC Distribution Width 13.2 % (11.5-14.5); Red Blood Cell (RBC) Count 3.58 mill/uL (4.20-5.40); White Blood Cell (WBC) Count 8.4 thou/uL (4.8-10.8)
[2018-05-23 06:00] LABS: Anion Gap 9 mmol/L (10-20); BUN (Urea Nitrogen) 10 mg/dL (9.8-20.1); Calc. Creatinine Clearance 93 mL/min (70-130); Calcium 8.6 mg/dL (7.8-10.44); Carbon Dioxide 28 mmol/L (23-31); Chloride 95 mmol/L (98-107); Estimated GFR-MDRD 68; Glucose 106 mg/dL (80-115); Potassium 4.1 mmol/L (3.5-5.1); Sodium 128 mmol/L (136-145)
[2018-05-23] MEDS: Senokot S 8.6-50 MG TAB PO SCH ×2 (08:36→20:24)
[2018-05-23] MEDS: Aspirin 325 MG TAB PO SCH ×2 (08:37→20:24)
[2018-05-23] MEDS: Ferrous Gluconate 324 MG TAB PO SCH ×2 (08:37→18:09)
[2018-05-23] MEDS: Multivitamin W/ Minerals 1 TAB PO SCH (08:37)
[2018-05-23] MEDS ORDERED: PARoxetine 20 MG TAB PO SCH (09:00)
--- NOTE | 2018-05-23 10:43 | PRG ---
DATE OF SERVICE: 05/22/2018 SUBJECTIVE: Lizzy is postop day 2 from a left total hip arthroplasty. She is doing relatively well . She has very little in the way of complaints. She is awaiting rehab placement pending insurance v erification and approval. OBJECTIVE: VITAL SIGNS: Temperature 98.9, pulse 84, respiratory rate 16, O2 saturation on room air is 92%, bloo d pressure is 115/51. She is grossly nonfocal. GENERAL: She is alert and oriented to person, place, time, and situation. EXTREMITIES: Neurovascularly intact in left lower extremity. Incision is clean and closed without e rythema. LABORATORY: Hemoglobin and hematocrit 10.2 and 30.0. ASSESSMENT: 1. A 67-year-old white female status post left total hip arthroplasty, postop day #2. 2. Mild postoperative asymptomatic hemorrhagic anemia. PLAN: Continue current care, rehab placement versus discharge to home.
--- NOTE | 2018-05-23 14:31 | PDOC.PN ---
- Subjective Encounter Start Date: 05/23/18 Encounter Start Time: 11:30 Subjective: pt up in bed no complains - Objective Vital Signs & Weight: Vital Signs (12 hours) Temp Pulse Resp BP BP BP Pulse Ox 05/23/18 11:13 98.3 F 95 18 133/78 95 05/23/18 08:40 124/73 123/74 05/23/18 08:00 98.6 F 85 14 94 L 05/23/18 07:13 98.6 F 85 14 124/73 94 L 05/23/18 03:55 98.7 F 87 20 112/71 95 Weight Admit Weight 200 lb Weight 200 lb I&O: 05/22/18 05/23/18 05/24/18 06:59 06:59 06:59 Intake Total 500 500 Output Total 1250 800 Balance -750 -300 Result Diagrams: 05/23/18 05:29 05/23/18 05:29 Phys Exam - Physical Examination HEENT: PERRLA, moist MMs, sclera anicteric, TM's clear, oral pharynx no lesions , 2+ tonsils Neck: no nodes, no JVD, supple, full ROM Respiratory: no wheezing, no rales, no rhonchi, wheezing present, clear to auscultation bilateral Cardiovascular: RRR, no significant murmur, no rub, gallop, irregular Gastrointestinal: soft, non-tender, no distention, positive bowel sounds left hip dressing intact Dx/Plan (1) UTI (urinary tract infection) Status: Acute (2) Hyponatremia Code(s): E87.1 - HYPO-OSMOLALITY AND HYPONATREMIA Status: Acute (3) Hypotension Status: Acute - Plan continue abx for two more days -: will restart paxil for now -: pt asked to decrease her fluid intake and will take off her off fluid -: restriction * . Review of Systems - Review of Systems ENT: negative: Ear Pain, Ear Discharge, Nose Pain, Nose Discharge, Nose Congestion, Mouth Pain, Mouth Swelling, Throat Pain, Throat Swelling, Other Respiratory: negative: Cough, Dry, Shortness of Breath, Hemoptysis, SOB with Excertion, Pleuritic Pain, Sputum, Wheezing Cardiovascular: negative: chest pain, palpitations, orthopnea, paroxysmal nocturnal dyspnea, edema, light headedness, other Gastrointestinal: negative: Nausea, Vomiting, Abdominal Pain, Diarrhea, Constipation, Melena, Hematochezia, Other Genitourinary: negative: Dysuria, Frequency, Incontinence, Hematuria, Retention , Other - Medications/Allergies Allergies/Adverse Reactions: Allergies Allergy/AdvReac Type Severity Reaction Status Date / Time adhesive Allergy rash, bumps Verified 05/20/18 18:08 Medications: Current Medications Acetaminophen (Tylenol) 650 mg PO Q4H PRN PRN Reason: CHIRINOS/ T > 101F; Mild Pain (1-3) Hydrocodone Bitart/Acetaminophen ([place] 5/325) 1 tab PO Q4H PRN PRN Reason: Mild Pain 0-3 Last Admin: 05/22/18 17:16 Dose: 1 tab Hydrocodone Bitart/Acetaminophen ([place] 5/325) 2 tab PO Q4H PRN PRN Reason: For Moderate Pain 4-6 Aspirin (Aspirin) 325 mg PO BID [facility] Last Admin: 05/23/18 08:37 Dose: 325 mg Cephalexin (Keflex) 250 mg PO Q6HR [facility] Last Admin: 05/23/18 12:10 Dose: 250 mg Cholecalciferol (Vitamin D3) 1,000 units PO DAILY [facility] Last Admin: 05/23/18 08:37 Dose: 1,000 units Cyclobenzaprine HCl (Flexeril) 10 mg PO DAILYPRN PRN PRN Reason: MUSCLE SPASM Diphenhydramine HCl (Benadryl) 25 mg PO Q3H PRN PRN Reason: Itching Diphenhydramine HCl (Benadryl) 25 mg IM Q3H PRN PRN Reason: Itching Diphenhydramine HCl (Benadryl) 25 mg IVP Q3H PRN PRN Reason: Itching Emollient Cream (Hydrocerin Cream) 0 gm TOP PRN PRN PRN Reason: Itching Ferrous Gluconate (Fergon) 324 mg PO BID[facility] Last Admin: 05/23/18 08:37 Dose: 324 mg Vancomycin HCl 1.5 gm/ Sodium (Chloride) 300 mls @ 200 mls/hr IVPB ONCALL-OR [facility] Iron/Minerals/Multivitamins (Theragran M) 1 tab PO DAILY [facility] Last Admin: 05/23/18 08:37 Dose: 1 tab Naloxone HCl (Narcan) 0.2 mg IV Q5MIN PRN PRN Reason: RR <=8 OR OBTUNDED/UNAROUSABLE Naloxone HCl (Narcan) 0.1 mg IVP Q15MIN PRN PRN Reason: URINARY RETENTION Olmesartan (Benicar) 20 mg PO QAM [facility] Last Admin: 05/23/18 12:12 Dose: Not Given Ondansetron HCl (Zofran) 4 mg IVP Q6H PRN PRN Reason: Nausea/Vomiting Paroxetine HCl (Paxil) 20 mg PO DAILY [facility] Promethazine HCl (Phenergan) 12.5 mg IM Q4H PRN PRN Reason: Nausea Promethazine HCl (Phenergan Suppository) 25 mg [place] Q4H PRN PRN Reason: Nausea/Vomiting Senna/Docusate Sodium (Senokot S) 2 tab PO BID [facility] Last Admin: 05/23/18 08:36 Dose: 2 tab Sodium Chloride (Flush - Normal Saline) 10 ml IVF PRN PRN PRN Reason: Saline Flush Tramadol HCl (Ultram) 50 mg PO Q6H PRN PRN Reason: Mild Pain 1-3 Tramadol HCl (Ultram) 100 mg PO Q6H PRN PRN Reason: Moderate Pain 4-6 Zolpidem Tartrate (Ambien) 5 mg PO HSPRN PRN PRN Reason: Insomnia
[2018-05-24 05:32] LABS: Hemoglobin 10.4 g/dL (12.0-16.0); Mean Corpuscular HGB CONC 33.9 g/dL (32.0-36.0); Mean Corpuscular Hemoglobin 29.8 pg (27.0-31.0); Mean Corpuscular Volume 87.9 fL (78.0-98.0); Mean Platelet Volume 8.1 fL (7.4-10.4); Platelet Count 134 thou/uL (130-400); RBC Distribution Width 13.5 % (11.5-14.5); White Blood Cell (WBC) Count 6.7 thou/uL (4.8-10.8)
[2018-05-24] MEDS: Cephalexin 250 MG CAP PO SCH ×2 (06:03→11:49)
[2018-05-24] MEDS: Aspirin 325 MG TAB PO SCH ×2 (07:53→20:47)
[2018-05-24] MEDS: Multivitamin W/ Minerals 1 TAB PO SCH (07:53)
[2018-05-24] MEDS: Ferrous Gluconate 324 MG TAB PO SCH ×2 (07:53→17:20)
[2018-05-24] MEDS: PARoxetine 20 MG TAB PO SCH (07:53)
[2018-05-24] MEDS: Senokot S 8.6-50 MG TAB PO SCH ×2 (07:54→20:49)
[2018-05-24 08:46] LABS: Anion Gap 12 mmol/L (10-20); BUN (Urea Nitrogen) 8 mg/dL (9.8-20.1); Calc. Creatinine Clearance 106 mL/min (70-130); Calcium 8.3 mg/dL (7.8-10.44); Carbon Dioxide 25 mmol/L (23-31); Chloride 96 mmol/L (98-107); Estimated GFR-MDRD 78; Glucose 87 mg/dL (80-115); Potassium 3.8 mmol/L (3.5-5.1); Sodium 129 mmol/L (136-145)
--- NOTE | 2018-05-24 14:05 | PDOC.PN ---
- Subjective Encounter Start Date: 05/24/18 Encounter Start Time: 12:15 Subjective: pt up in bed no complains - Objective Vital Signs & Weight: Vital Signs (12 hours) Temp Pulse Resp BP Pulse Ox 05/24/18 10:59 98.6 F 89 16 134/80 96 05/24/18 08:00 98.7 F 86 12 96 05/24/18 07:33 98.7 F 86 12 117/73 96 05/24/18 04:00 98.8 F 89 16 117/73 97 Weight Admit Weight 200 lb Weight 200 lb I&O: 05/23/18 05/24/18 05/25/18 06:59 06:59 06:59 Intake Total 500 1000 Output Total 800 Balance -300 1000 Result Diagrams: 05/24/18 05:05 05/24/18 05:01 Phys Exam - Physical Examination HEENT: PERRLA, moist MMs, sclera anicteric, TM's clear, oral pharynx no lesions , 2+ tonsils Neck: no nodes, no JVD, supple, full ROM Respiratory: no wheezing, no rales, no rhonchi, wheezing present, clear to auscultation bilateral Cardiovascular: RRR, no significant murmur, no rub, gallop, irregular Gastrointestinal: soft, non-tender, no distention, positive bowel sounds Dx/Plan (1) UTI (urinary tract infection) Status: Acute (2) Hyponatremia Code(s): E87.1 - HYPO-OSMOLALITY AND HYPONATREMIA Status: Acute (3) Hypotension Status: Acute - Plan pt up in bed no complains -: hyponatremia improved -: will discontinue abx * . Review of Systems - Review of Systems ENT: negative: Ear Pain, Ear Discharge, Nose Pain, Nose Discharge, Nose Congestion, Mouth Pain, Mouth Swelling, Throat Pain, Throat Swelling, Other Respiratory: negative: Cough, Dry, Shortness of Breath, Hemoptysis, SOB with Excertion, Pleuritic Pain, Sputum, Wheezing Cardiovascular: negative: chest pain, palpitations, orthopnea, paroxysmal nocturnal dyspnea, edema, light headedness, other Gastrointestinal: negative: Nausea, Vomiting, Abdominal Pain, Diarrhea, Constipation, Melena, Hematochezia, Other - Medications/Allergies Allergies/Adverse Reactions: Allergies Allergy/AdvReac Type Severity Reaction Status Date / Time adhesive Allergy rash, bumps Verified 05/20/18 18:08 Medications: Current Medications Acetaminophen (Tylenol) 650 mg PO Q4H PRN PRN Reason: CHIRINOS/ T > 101F; Mild Pain (1-3) Hydrocodone Bitart/Acetaminophen ([place] 5/325) 1 tab PO Q4H PRN PRN Reason: Mild Pain 0-3 Last Admin: 05/22/18 17:16 Dose: 1 tab Hydrocodone Bitart/Acetaminophen ([place] 5/325) 2 tab PO Q4H PRN PRN Reason: For Moderate Pain 4-6 Aspirin (Aspirin) 325 mg PO BID [facility] Last Admin: 05/24/18 07:53 Dose: 325 mg Cephalexin (Keflex) 250 mg PO Q6HR [facility] Last Admin: 05/24/18 11:49 Dose: 250 mg Cholecalciferol (Vitamin D3) 1,000 units PO DAILY [facility] Last Admin: 05/24/18 07:54 Dose: 1,000 units Cyclobenzaprine HCl (Flexeril) 10 mg PO DAILYPRN PRN PRN Reason: MUSCLE SPASM Diphenhydramine HCl (Benadryl) 25 mg PO Q3H PRN PRN Reason: Itching Diphenhydramine HCl (Benadryl) 25 mg IM Q3H PRN PRN Reason: Itching Diphenhydramine HCl (Benadryl) 25 mg IVP Q3H PRN PRN Reason: Itching Emollient Cream (Hydrocerin Cream) 0 gm TOP PRN PRN PRN Reason: Itching Ferrous Gluconate (Fergon) 324 mg PO BID[facility] Last Admin: 05/24/18 07:53 Dose: 324 mg Vancomycin HCl 1.5 gm/ Sodium (Chloride) 300 mls @ 200 mls/hr IVPB ONCALL-OR [facility] Iron/Minerals/Multivitamins (Theragran M) 1 tab PO DAILY [facility] Last Admin: 05/24/18 07:53 Dose: 1 tab Naloxone HCl (Narcan) 0.2 mg IV Q5MIN PRN PRN Reason: RR <=8 OR OBTUNDED/UNAROUSABLE Naloxone HCl (Narcan) 0.1 mg IVP Q15MIN PRN PRN Reason: URINARY RETENTION Olmesartan (Benicar) 20 mg PO QAM [facility] Last Admin: 05/24/18 07:56 Dose: Not Given Ondansetron HCl (Zofran) 4 mg IVP Q6H PRN PRN Reason: Nausea/Vomiting Paroxetine HCl (Paxil) 20 mg PO DAILY [facility] Last Admin: 05/24/18 07:53 Dose: 20 mg Promethazine HCl (Phenergan) 12.5 mg IM Q4H PRN PRN Reason: Nausea Promethazine HCl (Phenergan Suppository) 25 mg [place] Q4H PRN PRN Reason: Nausea/Vomiting Senna/Docusate Sodium (Senokot S) 2 tab PO BID [facility] Last Admin: 05/24/18 07:54 Dose: 2 tab Sodium Chloride (Flush - Normal Saline) 10 ml IVF PRN PRN PRN Reason: Saline Flush Tramadol HCl (Ultram) 50 mg PO Q6H PRN PRN Reason: Mild Pain 1-3 Tramadol HCl (Ultram) 100 mg PO Q6H PRN PRN Reason: Moderate Pain 4-6 Zolpidem Tartrate (Ambien) 5 mg PO HSPRN PRN PRN Reason: Insomnia
--- NOTE | 2018-05-24 18:05 | PRG ---
DATE OF SERVICE: 05/22/2018 SUBJECTIVE: Lizzy is postop day #2 from left total hip arthroplasty. She is doing relatively well. She has no complaints of pain. I believe she decided that rehabilitation will be more appropriate s etting than going home. Therefore, we will consult rehabilitation. OBJECTIVE: Temperature 99, pulse 93, blood pressure 108/66, respiratory rate 14, O2 saturation on ro om air is 90%. She is alert and oriented to person, place, time, and situation. Grossly nonfocal. Her incision is clean and closed. No erythema. No strikethrough is noted. ASSESSMENT: A 67-year-old female postoperative day 2, left total hip arthroplasty, doing well. PLAN: Continue current management, recheck tomorrow, rehabilitation placement.
--- NOTE | 2018-05-24 18:08 | PRG ---
DATE OF SERVICE: 05/24/2018 SUBJECTIVE: Lizzy is postop day 4 from left total hip arthroplasty. She has no complaints and she i s much better. Skill placement is pending. OBJECTIVE: VITAL SIGNS: Temperature is 98.7, pulse 86, respiratory rate 12, O2 saturation on room air 96%, bloo d pressure 117/73. GENERAL: She is alert and oriented to person, place, time, and situation. Grossly nonfocal. Incisi on is clean and closed. No erythema is noted. Hemoglobin and hematocrit stable. IMPRESSION: 1. A 67-year-old female postoperative day #4 left total hip arthroplasty, doing well. 2. Mildly symptomatic postoperative hemorrhagic anemia. PLAN: Continue current care, skill placement.
--- NOTE | 2018-05-24 19:26 | PRG ---
DATE OF SERVICE: 05/23/2018 SUBJECTIVE: Lizzy is postop day 3 from left total hip arthroplasty, doing relatively well. She has no complaints. She is awaiting rehab placement. OBJECTIVE: Temperature 98.6, pulse 85, respiratory rate 14, O2 saturation on room air is 94%, blood pressure 124/73. She is alert and oriented to person, place, time, and situation. Incision clean an d closed. No erythema. She is neurovascularly intact in left lower extremity. LABORATORY DATA: Hemoglobin and hematocrit, 10.5 and 31.3. Stable since yesterday. ASSESSMENT: 1. A 67-year-old female postoperative day 3. Left total hip arthroplasty, doing well. Continue cur rent management. 2. Mild postoperative asymptomatic hemorrhagic anemia. Continue current management skilled versus r ehabilitation.
[2018-05-25 05:49] LABS: Hemoglobin 10.1 g/dL (12.0-16.0); Mean Corpuscular Hemoglobin 28.7 pg (27.0-31.0); Mean Platelet Volume 7.2 fL (7.4-10.4); Platelet Count 291 thou/uL (130-400); RBC Distribution Width 13.4 % (11.5-14.5); Red Blood Cell (RBC) Count 3.53 mill/uL (4.20-5.40); White Blood Cell (WBC) Count 6.5 thou/uL (4.8-10.8)
[2018-05-25] MEDS: Senokot S 8.6-50 MG TAB PO SCH ×2 (08:19→20:44)
[2018-05-25] MEDS: Aspirin 325 MG TAB PO SCH ×2 (08:19→20:44)
[2018-05-25] MEDS: Ferrous Gluconate 324 MG TAB PO SCH ×2 (08:19→18:18)
[2018-05-25] MEDS: PARoxetine 20 MG TAB PO SCH (08:19)
[2018-05-25] MEDS: Multivitamin W/ Minerals 1 TAB PO SCH (08:19)
--- NOTE | 2018-05-25 14:54 | PDOC.PN ---
- Subjective Encounter Start Date: 05/25/18 Encounter Start Time: 10:30 Subjective: pt up in bed no complains - Objective Vital Signs & Weight: Vital Signs (12 hours) Temp Pulse Resp BP Pulse Ox 05/25/18 11:11 98.3 F 86 16 129/71 93 L 05/25/18 08:00 98.3 F 75 16 93 L 05/25/18 07:53 98.3 F 75 16 133/79 93 L 05/25/18 04:00 98.4 F 78 16 132/84 93 L Weight Admit Weight 200 lb Weight 200 lb I&O: 05/24/18 05/25/18 05/26/18 06:59 06:59 06:59 Intake Total 1000 480 Balance 1000 480 Result Diagrams: 05/25/18 05:20 05/24/18 05:01 Phys Exam - Physical Examination HEENT: PERRLA, moist MMs, sclera anicteric, TM's clear, oral pharynx no lesions , 2+ tonsils Neck: no nodes, no JVD, supple, full ROM Respiratory: no wheezing, no rales, no rhonchi, wheezing present, clear to auscultation bilateral Cardiovascular: RRR, no significant murmur, no rub, gallop, irregular Dx/Plan (1) UTI (urinary tract infection) Status: Acute (2) Hyponatremia Code(s): E87.1 - HYPO-OSMOLALITY AND HYPONATREMIA Status: Acute (3) Hypotension Status: Acute - Plan pt off abx -: will check bmp in am -: hold bp meds since bp is normal * . Review of Systems - Review of Systems Eyes: negative: Pain, Vision Change, Conjunctivae Inflammation, Eyelid Inflammation, Redness, Other ENT: negative: Ear Pain, Ear Discharge, Nose Pain, Nose Discharge, Nose Congestion, Mouth Pain, Mouth Swelling, Throat Pain, Throat Swelling, Other Respiratory: negative: Cough, Dry, Shortness of Breath, Hemoptysis, SOB with Excertion, Pleuritic Pain, Sputum, Wheezing Cardiovascular: negative: chest pain, palpitations, orthopnea, paroxysmal nocturnal dyspnea, edema, light headedness, other - Medications/Allergies Allergies/Adverse Reactions: Allergies Allergy/AdvReac Type Severity Reaction Status Date / Time adhesive Allergy rash, bumps Verified 05/20/18 18:08 Medications: Current Medications Acetaminophen (Tylenol) 650 mg PO Q4H PRN PRN Reason: CHIRINOS/ T > 101F; Mild Pain (1-3) Hydrocodone Bitart/Acetaminophen ([place] 5/325) 1 tab PO Q4H PRN PRN Reason: Mild Pain 0-3 Last Admin: 05/22/18 17:16 Dose: 1 tab Hydrocodone Bitart/Acetaminophen ([place] 5/325) 2 tab PO Q4H PRN PRN Reason: For Moderate Pain 4-6 Aspirin (Aspirin) 325 mg PO BID [facility] Last Admin: 05/25/18 08:19 Dose: 325 mg Cholecalciferol (Vitamin D3) 1,000 units PO DAILY [facility] Last Admin: 05/25/18 08:19 Dose: 1,000 units Cyclobenzaprine HCl (Flexeril) 10 mg PO DAILYPRN PRN PRN Reason: MUSCLE SPASM Diphenhydramine HCl (Benadryl) 25 mg PO Q3H PRN PRN Reason: Itching Diphenhydramine HCl (Benadryl) 25 mg IM Q3H PRN PRN Reason: Itching Diphenhydramine HCl (Benadryl) 25 mg IVP Q3H PRN PRN Reason: Itching Emollient Cream (Hydrocerin Cream) 0 gm TOP PRN PRN PRN Reason: Itching Ferrous Gluconate (Fergon) 324 mg PO BID[facility] Last Admin: 05/25/18 08:19 Dose: 324 mg Vancomycin HCl 1.5 gm/ Sodium (Chloride) 300 mls @ 200 mls/hr IVPB ONCALL-OR [facility] Iron/Minerals/Multivitamins (Theragran M) 1 tab PO DAILY [facility] Last Admin: 05/25/18 08:19 Dose: 1 tab Naloxone HCl (Narcan) 0.2 mg IV Q5MIN PRN PRN Reason: RR <=8 OR OBTUNDED/UNAROUSABLE Naloxone HCl (Narcan) 0.1 mg IVP Q15MIN PRN PRN Reason: URINARY RETENTION Olmesartan (Benicar) 20 mg PO QAM [facility] Last Admin: 05/25/18 08:19 Dose: 20 mg Ondansetron HCl (Zofran) 4 mg IVP Q6H PRN PRN Reason: Nausea/Vomiting Paroxetine HCl (Paxil) 20 mg PO DAILY [facility] Last Admin: 05/25/18 08:19 Dose: 20 mg Promethazine HCl (Phenergan) 12.5 mg IM Q4H PRN PRN Reason: Nausea Promethazine HCl (Phenergan Suppository) 25 mg [place] Q4H PRN PRN Reason: Nausea/Vomiting Senna/Docusate Sodium (Senokot S) 2 tab PO BID [facility] Last Admin: 05/25/18 08:19 Dose: 2 tab Sodium Chloride (Flush - Normal Saline) 10 ml IVF PRN PRN PRN Reason: Saline Flush Tramadol HCl (Ultram) 50 mg PO Q6H PRN PRN Reason: Mild Pain 1-3 Tramadol HCl (Ultram) 100 mg PO Q6H PRN PRN Reason: Moderate Pain 4-6 Zolpidem Tartrate (Ambien) 5 mg PO HSPRN PRN PRN Reason: Insomnia
[2018-05-26] MEDS: Aspirin 325 MG TAB PO SCH (08:33)
[2018-05-26] MEDS: Senokot S 8.6-50 MG TAB PO SCH (08:33)
[2018-05-26] MEDS: Ferrous Gluconate 324 MG TAB PO SCH ×2 (08:33→16:29)
[2018-05-26] MEDS: Multivitamin W/ Minerals 1 TAB PO SCH (08:33)
[2018-05-26] MEDS: PARoxetine 20 MG TAB PO SCH (08:33)
[2018-05-26 16:02] VITALS: BP 143/82; TEMP 98.5
== END 2018-05-26 19:50 | DRG 470 ==
LOC: SURG A 05-20 09:16 → SURG B 05-20 16:00
PROVIDERS: ADMIT Orthopaedic Surgery; ATTEND Orthopaedic Surgery
PROC: 0SRB02A Replacement of Left Hip Joint with Metal on Polyethylene Synthetic Substitute, Uncemented, Open Approach (ICD-10-PCS; principal; 2018-05-20)
DX: M16.12 Unilateral primary osteoarthritis, left hip (principal); N17.9 Acute kidney failure, unspecified; E87.1 Hypo-osmolality and hyponatremia; N39.0 Urinary tract infection, site not specified; D62 Acute posthemorrhagic anemia; Z85.038 Personal history of other malignant neoplasm of large intestine; Z92.3 Personal history of irradiation; Z91.048 Other nonmedicinal substance allergy status; Z79.899 Other long term (current) drug therapy
CPT/HCPCS: 36415; 80048; 83930; 85027; 86850; 86900; 86901; 87086; 90471; 90670; C1776; G0009; G8978-GP-CJ; G8979-GP-CI; G8987-GO-CK; G8988-GO-CJ; J0696; J1100; J1885; J2001; J2250; J2405; J2704; J3010; J3370; J3490; J7050

== ENCOUNTER 2019-04-20 10:14 | Outpatient (CLI) | payer MEDICARE ==
[2019-04-20 12:42] LABS: #Eosinphils 0.3 thou/uL (0.0-0.7); #Lymphocytes 2.4 thou/uL (1.20-3.40); #Monocytes 0.7 thou/uL (0.11-0.59); #Neutrophils 4.6 thou/uL (1.40-6.50); %Basophils 0.3 % (0.0-1.0); %Eosinophils 3.5 % (0.0-10.0); %Lymphocytes 30.2 % (21.0-51.0); %Monocytes 8.7 % (0.0-10.0); %Neutrophils 57.3 % (42.0-75.0); Hemoglobin 13.5 g/dL (12.0-16.0); Mean Corpuscular HGB CONC 33.9 g/dL (32.0-36.0); Mean Corpuscular Hemoglobin 28.6 pg (27.0-31.0); Mean Corpuscular Volume 84.3 fL (78.0-98.0); Mean Platelet Volume 7.6 fL (7.4-10.4); Platelet Count 337 thou/uL (130-400); RBC Distribution Width 13.7 % (11.5-14.5); Red Blood Cell (RBC) Count 4.74 mill/uL (4.20-5.40)
[2019-04-20 12:47] LABS: INR-International Normal Ratio 0.9; PTT 28.8 SEC (22.9-36.1); Prothrombin Time 12.5 SEC (12.0-14.7)
[2019-04-20 12:58] LABS: Bilirubin Negative (Negative); Blood, Urine Large (Negative); Clarity CLOUDY (Clear); Glucose, Urine (Dipstick) Negative (Negative); Leukocyte Moderate (Negative); Nitrite Negative (Negative); Protein, Urine (Dipstick) 100 mg/dL (Neg-Trace); Specific Gravity, Urine 1.006 (1.002-1.036); Urobilinogen 0.2 mg/dL (0.2-1.0); pH, Urine 5.5 (5.0-9.0)
[2019-04-20 13:01] LABS: Bacteria/HPF 4+ HPF (None Seen); Hyaline Casts/LPF 0-3 HYALINE CAST LPF (0-3 Hyaline); Pathc Cast-AUWi Flag 0.27 (0-2.49); Squamous Epithelial None Seen HPF (0-3)
[2019-04-20 13:03] LABS: Anion Gap 14 mmol/L (10-20); BUN (Urea Nitrogen) 11 mg/dL (9.8-20.1); Calc. Creatinine Clearance 0 mL/min (70-130); Calcium 10.2 mg/dL (7.8-10.44); Carbon Dioxide 27 mmol/L (23-31); Chloride 98 mmol/L (98-107); Estimated GFR-MDRD 51; Glucose 85 mg/dL (80-115); Potassium 3.7 mmol/L (3.5-5.1); Sodium 135 mmol/L (136-145)
--- NOTE | 2019-04-20 17:37 | EKG ---
Test Reason : Blood Pressure : / mmHG Vent. Rate : 080 BPM Atrial Rate : 080 BPM P-R Int : 176 ms QRS Dur : 090 ms QT Int : 372 ms P-R-T Axes : 059 048 071 degrees QTc Int : 429 ms Normal sinus rhythm Normal ECG When compared with ECG of 15-MAY-2018 14:03, Borderline criteria for Inferior infarct are no longer Present Confirmed by ZACH FERGUSON, DR. Thompson ([id number]) on 04/20/2019 5:36:38 PM Referred By: CARA Confirmed By:DR. Jay SERRANO MD
== END 2019-04-20 10:15 | disposition home or self-care (01) ==
LOC: LABBT 10:14
PROVIDERS: ATTEND Orthopaedic Surgery
DX: Z01.818 Encounter for other preprocedural examination (principal); M16.11 Unilateral primary osteoarthritis, right hip
CPT/HCPCS: 80048; 81001; 85025; 85610; 85730; 87081; 93005; 93010

== ENCOUNTER 2019-04-21 12:30 | Inpatient (IN) | payer MEDICARE ==
[2019-04-20 11:03] VITALS: BMI 31.6
[2019-04-28] MEDS ORDERED: Vancomycin HCl 1.5 GM in Sodium Chloride 0.9% 250 ML 300 ML IVPB SCH (06:15)
[2019-04-28] MEDS ORDERED: Midazolam HCl 2 mg/2 ml Vial ONE (06:29)
[2019-04-28] MEDS ORDERED: Fentanyl 100 MCG/2 ML VIAL ONE ×2 (06:29→09:28)
[2019-04-28] MEDS ORDERED: Lidocaine 1% (PF) 30 ML VIAL ONE (06:29)
[2019-04-28] MEDS ORDERED: Sodium Chloride 0.9% 100 ML ONE (06:32)
[2019-04-28] MEDS ORDERED: Tranexamic Acid 1,000 MG/10 ML VIAL ONE (06:32)
[2019-04-28] MEDS ORDERED: Scopolamine 1.5 mg/72 hour Patch ONE (06:42)
[2019-04-28] MEDS ORDERED: Acetaminophen 325 MG TAB PO PRN (06:52)
[2019-04-28] MEDS ORDERED: Zolpidem Tartrate 5 MG TAB PO PRN ×2 (06:52→07:15)
[2019-04-28] MEDS ORDERED: HYDROcodone/Acetaminophen 10/325 mg Tablet PO PRN ×2 (06:52)
[2019-04-28] MEDS ORDERED: Ondansetron PF 4 MG/2 ML Vial IVP PRN ×2 (06:52→07:15)
[2019-04-28] MEDS ORDERED: diphenhydrAMINE 25 MG CAP PO PRN (06:52)
[2019-04-28] MEDS ORDERED: Promethazine HCl 25 MG/ML VIAL IM PRN ×3 (06:52→09:17)
[2019-04-28] MEDS ORDERED: Bupivacaine/Epinephrine 0.25% 30 ML VIAL ONE (07:14)
[2019-04-28] MEDS ORDERED: Bupivacaine 0.25% 10 ML VIAL EPIDURAL PRN (07:15)
[2019-04-28] MEDS ORDERED: HYDROcodone/Acetaminophen 5/325 mg Tablet PO PRN ×2 (07:15)
[2019-04-28] MEDS ORDERED: Naloxone HCl 0.4 mg/ml Vial IVP PRN (07:15)
[2019-04-28] MEDS ORDERED: diphenhydrAMINE 50 MG/ML VIAL IM PRN (07:15)
[2019-04-28] MEDS ORDERED: Promethazine HCl 25 MG SUPP PR PRN (07:15)
[2019-04-28] MEDS ORDERED: traMADol HCl 50 MG TAB PO PRN (07:15)
[2019-04-28] MEDS ORDERED: diphenhydrAMINE 50 MG/ML VIAL IVP PRN (07:15)
[2019-04-28] MEDS ORDERED: Hydrocerin (Eucerin) Cream 120 gm Jar TOP PRN (07:15)
[2019-04-28] MEDS ORDERED: Naloxone HCl 0.4 mg/ml Vial IV PRN (07:15)
[2019-04-28] MEDS ORDERED: Ketorolac Tromethamine 30 MG/ML VIAL IVP PRN ×2 (07:15→09:17)
[2019-04-28] MEDS ORDERED: Acetaminophen 500 MG TAB PO PRN (07:19)
[2019-04-28] MEDS ORDERED: Ondansetron HCl/PF 4 MG/2 ML Vial IVP PRN (09:17)
[2019-04-28] MEDS ORDERED: Promethazine HCl 25 MG/ML VIAL SLOW IVP PRN (09:17)
--- NOTE | 2019-04-28 09:59 | RAD ---
Exam:One view pelvis 2 views right hip HISTORY: Status post right hip arthroplasty. COMPARISON: 05/07/2018 FINDINGS: One view pelvis: Bilateral hip arthroplasty. Reason the AP projection, alignment is within normal limits. There are degenerative change in both SI joints. Intact bony pelvis. 2 views right hip: Findings compatible with right hip arthroplasty. Expected postoperative changes. A lignment is near-anatomic. IMPRESSION: Findings compatible with recent right hip is
--- NOTE | 2019-04-28 12:13 | OP ---
DATE OF PROCEDURE: 04/28/2019 This is Robert Hernandes PA-C dictating a report for Don Teague MD. PREOPERATIVE DIAGNOSIS: Right hip bicompartmental loss, end-stage osteoarthritis. POSTOPERATIVE DIAGNOSIS: Right hip bicompartmental loss, end-stage osteoarthritis. PROCEDURE PERFORMED: Press-fit right total hip arthroplasty. SURGEON: Don Teague MD HOP GROWER: Robert Hernandes PA-C ANESTHESIA: General via endotracheal tube augmented with indwelling epidural. COMPONENTS USED: [employer] Accolade II press-fit hip stem size 6 with a Tritanium size 54, press-fit hemispherical cluster hole shell, 10-degree polyethylene fixed bearing insert, and -5 neck length 36 mm ceramic femoral head. ESTIMATED BLOOD LOSS: 100. FINDINGS: End-stage severe degenerative bicompartmental disease [id number] arthrosis periarticular osteophyte formation, large serous effusion, hypertrophic synovium, and capsule. DRAINS: None. SPECIMENS: None. COMPLICATIONS: None. COUNTS: Correct. FLUIDS: 1000 mL in. Output was 200 mL clear yellow urine. INDICATION FOR SURGERY: Lizzy is a 68-year-old white female, who has had progressive right hip groin and thigh pain after not standing and walking for the last 5 to 7 years. She has failed conservative management, elected to proceed with total hip arthroplasty as definitive treatment of her pain. PROCEDURE IN DETAIL: After informed consent was obtained in the preoperative holding area, the patient was taken to the operative suite where general anesthesia was induced. The patient was then positioned in the lateral decubitus position. The hip was then prepped and draped in usual sterile fashion. The patient received preoperative antibiotics. Prior to incision, time-out was called and all members of the surgical team agreed upon site, surgeon, and patient. After this, a longitudinal incision was made directly over the trochanter, noted by palpation extending 2 fingerbreadths above and below the trochanter. The deeper subcutaneous layer was undermined with Bovie electrocautery. The iliotibial band was encountered and incised sharply and the plane below this was developed bluntly. A Charnley retractor was placed to hold this opened. The lateral aspect of the trochanter and the abductor muscles were encountered and then reflected anteriorly off the trochanter using Bovie electrocautery. Once this was completed, the anterior capsule was then encountered and identified and copious capsulotomy was carried out, exposing the femoral neck and head. Dislocation maneuver was then performed and an in situ provisional neck cut was then made using the oscillating saw. Attention was then turned to acetabular preparation. Sequential reaming was carried out up to the appropriate diameter and a trial was then malleted into place with good firm resistance and no pullout. The permanent acetabular shell was then malleted squarely into place, as was the appropriate liner. Once completed, the wound was copiously irrigated and attention was then turned to femoral preparation. Flexion and external rotation were performed of the exposed thigh and femoral elevators were then placed at the proximal aspect of the wound. Canal finder was used to establish the length of the canal and sequential reaming was carried out, followed by broaching. Once the appropriate stability was established with the trial broaches with flexion, extension and rotational stability, we did trial with neutral and 2 mm offset incremental necks. Once the appropriate size was decided upon, with good stability noted with flexion, extension, internal and external rotation and shuck being negative, we removed the femoral trial broach and malletted into place the permanent prosthesis with good firm fit, which was also stable to rotation. Again, the hip felt very stable to flexion, extension, internal and external rotation. Leg lengths appeared near anatomic clinically and we were quite happy with prosthesis placement. Copious irrigation was then carried out through the entirety of the wound. Primary closure of the abductors was accomplished with interrupted #2 Vicryl [id number] stitches and the IT band was then closed with interrupted #2 Vicryl, oversewn with a #2 running barbed Quill stitch. Subcutaneous fascia was closed with running barbed Quill stitch and a subcuticular Monocryl barbed Quill stitch was used for skin closure and augmented with skin cement. A sterile dressing was applied. The procedure was terminated without any complication. All counts were correct. The patient was awakened in the operative suite and taken to the recovery room in stable condition. Job ID: [id number]
[2019-04-28] MEDS: Aspirin 81 mg Enteric Coated Tablet PO SCH ×2 (12:53→21:17)
[2019-04-28] MEDS: Sodium Chloride 0.9% 1,000 ML IV SCH ×2 (13:08→16:16)
[2019-04-28] MEDS: CEFAZOLIN 2 GM in Premix Bag 1 BAG IVPB SCH ×2 (13:09→21:12)
[2019-04-28] MEDS ORDERED: Ketorolac Tromethamine 30 MG/ML VIAL IM SCH (14:00)
[2019-04-28] MEDS: diphenhydrAMINE 25 MG CAP PO PRN (21:12)
[2019-04-29] MEDS: fentaNYL Citrate/PF 500 MCG, Bupivacaine 10 ML in Sodium Chloride 0.9% 80 ML EPIDURAL SCH ×2 (00:55→16:06)
[2019-04-29] MEDS: traMADol HCl 50 MG TAB PO PRN (01:32)
[2019-04-29] MEDS: Sodium Chloride 0.9% 1,000 ML IV SCH (02:56)
[2019-04-29 05:31] LABS: Hemoglobin 9.5 g/dL (12.0-16.0); Mean Corpuscular HGB CONC 32.7 g/dL (32.0-36.0); Mean Corpuscular Volume 85.5 fL (78.0-98.0); Mean Platelet Volume 7.9 fL (7.4-10.4); Platelet Count 240 thou/uL (130-400); RBC Distribution Width 13.9 % (11.5-14.5); Red Blood Cell (RBC) Count 3.39 mill/uL (4.20-5.40); White Blood Cell (WBC) Count 9.3 thou/uL (4.8-10.8)
[2019-04-29] MEDS: Ferrous Gluconate 324 MG TAB PO SCH ×2 (07:31→16:05)
[2019-04-29] MEDS: Aspirin 81 mg Enteric Coated Tablet PO SCH ×2 (08:23→20:28)
[2019-04-29] MEDS: Senokot S 8.6-50 MG TAB PO SCH ×2 (08:23→20:28)
[2019-04-29] MEDS: Multivitamin W/ Minerals 1 TAB PO SCH (08:23)
--- NOTE | 2019-04-29 09:47 | PRG ---
DATE OF SERVICE: 04/29/2019 SUBJECTIVE: Lizzy is a 68-year-old white female, postop day 1 from right total hip arthroplasty. Her pain is very well controlled. She has no complaints currently. OBJECTIVE: VITAL SIGNS: Temperature 99.3, pulse 84, respiratory rate 16 and unlabored, blood pressure is 146/76. GENERAL: She is alert and oriented to person, place, time, and situation. Grossly nonfocal. Appropriate with examiner. There is no strikethrough in her incision, and she is neurovascularly intact in both lower extremities. LABORATORY DATA: Hemoglobin and hematocrit are 9.5 and 29.0. IMPRESSION: 1. A 68-year-old female, postop day #1 right total hip arthroplasty. 2. Anemia. PLAN: Continue current care. I believe the patient is scheduled for a skilled placement at the end of her acute care stay. Job ID: [id number]
[2019-04-29] MEDS ORDERED: cloNIDine 0.1 MG TAB PO PRN (10:10)
--- NOTE | 2019-04-29 10:29 | PRG ---
DATE OF SERVICE: 04/29/2019 PRIMARY CARE PHYSICIAN: [facility], Dr. Gigi Birch. SUBJECTIVE: The patient was seen and examined for medical management. Pain is controlled at this time. She denies any chest pain, shortness of breath, palpitations, fever, chills, or lower extremity edema. REVIEW OF SYSTEMS: All other review of systems were reviewed and were found negative. OBJECTIVE: VITAL SIGNS: Temperature 99.2, pulse rate of 98, blood pressure of 130/73, respirations of 16, O2 saturation 97% on room air. GENERAL: A 68-year-old female, in no apparent distress. LUNGS: Clear to auscultation bilaterally. No wheezing, rales, or rhonchi. HEART: S1 and S2 present. Regular rate and rhythm. No rubs or gallops appreciated. ABDOMEN: Soft, nontender. Bowel sounds present. EXTREMITIES: No edema or calf tenderness. NEUROLOGIC: Grossly nonfocal. LABORATORY FINDINGS: CBC showed WBC of 8.0 with hemoglobin 13.5, hematocrit 39.9, platelet of 337. PT, INR, and PTT in normal range. Chemistry showed sodium 135, potassium 3.7, chloride 98, bicarb 27, BUN 11, creatinine 1.07. Urinalysis on 04/20/2019 showed WBC of greater than 50 with 4+ bacteria. Hip x-ray showed findings compatible with right hip arthroplasty. EKG by my review showed sinus rhythm. IMPRESSION: 1. Status post right total hip arthroplasty. 2. Hypertension, on as needed olmesartan. 3. Anxiety. 4. History of colon cancer. 5. Degenerative joint disease. 6. Mild hyponatremia. Repeat labs as outpatient is recommended. 7. Recent urinary tract infection. 8. Chronic kidney disease, stage 3. PLAN: We will continue Paxil at current dose. We will start low-dose olmesartan, to be held if the blood pressure is below 140. Urinalysis will be repeated due to recent UTI. If urinalysis is abnormal, we will consider urine culture. We will hold antibiotics for now. The patient denies any dysuria, hematuria, or urgency. CODE STATUS: Full code. The patient makes her own decision with the help of her family. Job ID: [id number]
[2019-04-29 13:04] LABS: Bilirubin Negative (Negative); Blood, Urine Large (Negative); Clarity CLEAR (Clear); Glucose, Urine (Dipstick) Negative (Negative); Leukocyte Negative (Negative); Nitrite Negative (Negative); Protein, Urine (Dipstick) 100 mg/dL (Neg-Trace); Specific Gravity, Urine 1.017 (1.002-1.036); Urobilinogen 0.2 mg/dL (0.2-1.0); pH, Urine 5.5 (5.0-9.0)
[2019-04-29 13:05] LABS: Bacteria/HPF None Seen HPF (None Seen); Squamous Epithelial 0-3 HPF (0-3)
[2019-04-29 13:17] LABS: Hyaline Casts/LPF 0-3 HYALINE CAST LPF (0-3 Hyaline); Manual Microscopic Reviewed? No Path Casts Seen
[2019-04-30 05:48] LABS: Hemoglobin 9.6 g/dL (12.0-16.0); Mean Corpuscular HGB CONC 32.5 g/dL (32.0-36.0); Mean Corpuscular Hemoglobin 27.8 pg (27.0-31.0); Mean Corpuscular Volume 85.5 fL (78.0-98.0); Mean Platelet Volume 8.1 fL (7.4-10.4); Platelet Count 227 thou/uL (130-400); RBC Distribution Width 13.9 % (11.5-14.5); Red Blood Cell (RBC) Count 3.46 mill/uL (4.20-5.40); White Blood Cell (WBC) Count 11.2 thou/uL (4.8-10.8)
--- NOTE | 2019-04-30 08:26 | PRG ---
DATE OF SERVICE: 04/30/2019 SUBJECTIVE: Lizzy is a postoperative day 2 from a right total hip arthroplasty. She is doing relatively well. She is still comfortable and has no complaints of significant pain. OBJECTIVE: VITAL SIGNS: Temperature 99, pulse 100, respiratory rate 16, blood pressure 121/65. GENERAL: She is alert and oriented to person, place, time, and situation. Grossly nonfocal. Appropriate response with examiner. EXTREMITIES: There is no strikethrough at her incision. She is neurovascularly intact in the involved extremity. LABORATORY DATA: Hemoglobin and hematocrit 9.6 and 29.6. IMPRESSION: 1. A 68-year-old female postoperative day 2, right total hip arthroplasty. 2. Anemia. PLAN: Continue current care. We will transfer her to the [facility] tomorrow. Job ID: [id number]
[2019-04-30] MEDS: Ferrous Gluconate 324 MG TAB PO SCH ×2 (09:30→18:52)
[2019-04-30] MEDS: Senokot S 8.6-50 MG TAB PO SCH ×2 (09:32→21:08)
[2019-04-30] MEDS: Aspirin 81 mg Enteric Coated Tablet PO SCH ×2 (09:32→21:08)
[2019-04-30] MEDS: PARoxetine 20 MG TAB PO SCH (09:32)
[2019-04-30] MEDS: Multivitamin W/ Minerals 1 TAB PO SCH (09:33)
[2019-04-30] MEDS: fentaNYL Citrate/PF 500 MCG, Bupivacaine 10 ML in Sodium Chloride 0.9% 80 ML EPIDURAL SCH (09:40)
[2019-04-30] MEDS: diphenhydrAMINE 25 MG CAP PO PRN (11:54)
[2019-04-30] MEDS: Olmesartan 5 MG TAB PO SCH (11:54)
[2019-04-30] MEDS: traMADol HCl 50 MG TAB PO PRN (21:19)
--- NOTE | 2019-04-30 22:27 | PDOC.PN ---
- Subjective Encounter Start Date: 04/30/19 Encounter Start Time: 08:00 Patient seen and examined for med mngt. Pain controlled.. No new complaints. No overnight events - Objective MAR Reviewed: Yes Vital Signs & Weight: Vital Signs (12 hours) Temp Pulse Resp BP Pulse Ox 04/30/19 20:00 99.4 F 90 16 118/64 96 04/30/19 15:15 99.3 F 88 24 H 118/64 92 L 04/30/19 12:00 98.9 F 87 16 158/74 H 93 L Weight Admit Weight 196 lb Weight 196 lb I&O: 04/29/19 04/30/19 05/01/19 06:59 06:59 06:59 Intake Total 3000 1980 860 Output Total 2550 1020 1290 Balance 450 960 -430 Result Diagrams: 05/01/19 04:25 Phys Exam - Physical Examination Constitutional: NAD Respiratory: no wheezing, no rhonchi Cardiovascular: RRR, no rub Gastrointestinal: soft, non-tender, positive bowel sounds Musculoskeletal: no edema Dx/Plan - Plan DVT proph w/SCDs IMPRESSION: 1. Status post right total hip arthroplasty. 2. Hypertension. 3. Anxiety. 4. History of colon cancer. 5. Degenerative joint disease. 6. Mild hyponatremia. 7. Recent urinary tract infection. Repeat UA 4-6 WBC, no bacteria - asymptomatic. 8. Chronic kidney disease, stage 3. 9. Obesity BMI 31.6 PLAN: Cont olmesartan as needed. Cont Paxil Will follow PRN BMP as outpt after 1 week Cont IS and DVT prophylaxis Review of Systems - Review of Systems Respiratory: negative: Cough, Dry, Shortness of Breath, Hemoptysis, SOB with Excertion, Pleuritic Pain, Sputum, Wheezing Cardiovascular: negative: chest pain, palpitations, orthopnea, paroxysmal nocturnal dyspnea, edema, light headedness, other Gastrointestinal: negative: Nausea, Vomiting, Abdominal Pain, Diarrhea, Constipation, Melena, Hematochezia, Other - Medications/Allergies Allergies/Adverse Reactions: Allergies Allergy/AdvReac Type Severity Reaction Status Date / Time adhesive Allergy rash, bumps Verified 04/20/19 11:03 Medications: Current Medications Acetaminophen (Tylenol) 650 mg PO Q4H PRN PRN Reason: Headache/Fever Last Admin: 04/29/19 07:31 Dose: 650 mg Acetaminophen (Tylenol) 1,000 mg PO Q6H PRN PRN Reason: Pain Last Admin: 04/30/19 04:00 Dose: 1,000 mg Hydrocodone Bitart/Acetaminophen ([place] 5/325) 1 tab PO Q4H PRN PRN Reason: Mild Pain 1-3 Hydrocodone Bitart/Acetaminophen ([place] 5/325) 2 tab PO Q4H PRN PRN Reason: For Moderate Pain 4-6 Aspirin (Ecotrin) 81 mg PO BID [facility] Last Admin: 04/30/19 21:08 Dose: 81 mg Clonidine (Catapres) 0.1 mg PO Q4H PRN PRN Reason: SBP Greater Than 180 Diphenhydramine HCl (Benadryl) 25 mg PO Q3H PRN PRN Reason: Itching Last Admin: 04/30/19 11:54 Dose: 25 mg Diphenhydramine HCl (Benadryl) 25 mg IM Q3H PRN PRN Reason: Itching Diphenhydramine HCl (Benadryl) 25 mg IVP Q3H PRN PRN Reason: Itching Emollient Cream (Hydrocerin Cream) 0 gm TOP PRN PRN PRN Reason: Itching Ferrous Gluconate (Fergon) 324 mg PO BID[facility] Last Admin: 04/30/19 18:52 Dose: Not Given Vancomycin HCl 1.5 gm/ Sodium (Chloride) 300 mls @ 200 mls/hr IVPB ONCALL-OR [facility] Fentanyl Citrate 500 mcg/Bupivacaine HCl 10 ml/ Sodium Chloride 100 mls @ 0 mls /hr EPIDURAL INF [facility] Last Admin: 04/30/19 09:40 Dose: 100 mls Iron/Minerals/Multivitamins (Theragran M) 1 tab PO DAILY [facility] Last Admin: 04/30/19 09:33 Dose: 1 tab Ketorolac Tromethamine (Toradol) 15 mg IVP Q6H PRN PRN Reason: Moderate Pain (4-6) Stop: 05/01/19 07:16 Miscellaneous Information (Communication Order-Pharmacy) 1 each FS ASDIR [facility] Naloxone HCl (Narcan) 0.2 mg IV Q5MIN PRN PRN Reason: RR <=8 OR OBTUNDED/UNAROUSABLE Naloxone HCl (Narcan) 0.1 mg IVP Q15MIN PRN PRN Reason: URINARY RETENTION Olmesartan (Benicar) 10 mg PO DAILY [facility] Last Admin: 04/30/19 11:54 Dose: 10 mg Ondansetron HCl (Zofran) 4 mg IVP Q6H PRN PRN Reason: Nausea/Vomiting Paroxetine HCl (Paxil) 40 mg PO QAM [facility] Last Admin: 04/30/19 09:32 Dose: 40 mg Promethazine HCl (Phenergan) 12.5 mg IM Q4H PRN PRN Reason: Nausea Promethazine HCl (Phenergan Suppository) 25 mg [place] Q4H PRN PRN Reason: Nausea/Vomiting Senna/Docusate Sodium (Senokot S) 2 tab PO BID [facility] Last Admin: 04/30/19 21:08 Dose: 2 tab Sodium Chloride (Flush - Normal Saline) 10 ml IVF PRN PRN PRN Reason: Saline Flush Tramadol HCl (Ultram) 50 mg PO Q6H PRN PRN Reason: Mild Pain 1-3 Tramadol HCl (Ultram) 100 mg PO Q6H PRN PRN Reason: Moderate Pain 4-6 Last Admin: 04/30/19 21:19 Dose: 100 mg Zolpidem Tartrate (Ambien) 5 mg PO HSPRN PRN PRN Reason: Insomnia
[2019-05-01] MEDS: fentaNYL Citrate/PF 500 MCG, Bupivacaine 10 ML in Sodium Chloride 0.9% 80 ML EPIDURAL SCH (03:18)
[2019-05-01 04:40] LABS: Hemoglobin 8.9 g/dL (12.0-16.0); Mean Corpuscular HGB CONC 33.3 g/dL (32.0-36.0); Mean Corpuscular Hemoglobin 28.8 pg (27.0-31.0); Mean Corpuscular Volume 86.3 fL (78.0-98.0); Mean Platelet Volume 7.9 fL (7.4-10.4); Platelet Count 207 thou/uL (130-400); RBC Distribution Width 13.7 % (11.5-14.5); White Blood Cell (WBC) Count 8.9 thou/uL (4.8-10.8)
[2019-05-01] MEDS: Aspirin 81 mg Enteric Coated Tablet PO SCH (08:30)
[2019-05-01] MEDS: Ferrous Gluconate 324 MG TAB PO SCH ×2 (08:30→16:55)
[2019-05-01] MEDS: Multivitamin W/ Minerals 1 TAB PO SCH (08:30)
[2019-05-01] MEDS: Olmesartan 5 MG TAB PO SCH (08:31)
[2019-05-01] MEDS: PARoxetine 20 MG TAB PO SCH (08:31)
[2019-05-01] MEDS: Senokot S 8.6-50 MG TAB PO SCH (08:31)
[2019-05-01 16:10] VITALS: BP 156/76; TEMP 100.4
== END 2019-05-01 19:10 | disposition home or self-care (01) | DRG 470 ==
LOC: SJJU 04-28 05:41
PROVIDERS: ADMIT Orthopaedic Surgery; ATTEND Orthopaedic Surgery
PROC: 0SR9049 Replacement of Right Hip Joint with Ceramic on Polyethylene Synthetic Substitute, Cemented, Open Approach (ICD-10-PCS; principal; 2019-04-28)
DX: M16.11 Unilateral primary osteoarthritis, right hip (principal); E87.1 Hypo-osmolality and hyponatremia; E78.5 Hyperlipidemia, unspecified; D64.9 Anemia, unspecified; F41.9 Anxiety disorder, unspecified; N18.3 Chronic kidney disease, stage 3 (moderate); I12.9 Hypertensive chronic kidney disease with stage 1 through stage 4 chronic kidney disease, or unspecified chronic kidney disease; E66.9 Obesity, unspecified; Z68.31 Body mass index [BMI] 31.0-31.9, adult; Z91.048 Other nonmedicinal substance allergy status; Z90.49 Acquired absence of other specified parts of digestive tract; Z90.710 Acquired absence of both cervix and uterus; Z85.038 Personal history of other malignant neoplasm of large intestine
CPT/HCPCS: 36415; 81001; 85027; 86850; 86900; 86901; J0690; J2001; J2250; J3010; J3370; J3490; J7050; Q0163

== ENCOUNTER 2019-04-22 09:41 | Outpatient (CLI) | payer MEDICARE | END 2019-04-22 09:42 | disposition home or self-care (01) | LOC: LABBT 09:41 | PROVIDERS: ATTEND Orthopaedic Surgery | DX: Z01.812 Encounter for preprocedural laboratory examination (principal); M16.11 Unilateral primary osteoarthritis, right hip | CPT/HCPCS: 86850; 86900; 86901 ==

== ENCOUNTER 2019-05-20 11:19 | Inpatient (IN) | payer MEDICARE ==
[~2019-05-20 11:19] MED LIST: Heparin 1,000 UNITS/ML VIAL ONE
[2019-05-20 14:28] VITALS: BMI 32.3
[2019-05-20] MEDS: HYDROcodone/Acetaminophen 10/325 mg Tablet PO PRN ×2 (14:44→22:09)
[2019-05-20] MEDS: Sodium Chloride 0.9% 1,000 ML IV SCH ×2 (14:45→20:20)
[2019-05-20 15:10] LABS: Hemoglobin 10.6 g/dL (12.0-16.0); Mean Corpuscular HGB CONC 31.7 g/dL (32.0-36.0); Mean Corpuscular Hemoglobin 26.5 pg (27.0-31.0); Mean Corpuscular Volume 83.8 fL (78.0-98.0); Mean Platelet Volume 8.4 fL (7.4-10.4); Platelet Count 369 thou/uL (130-400); Red Blood Cell (RBC) Count 4.01 mill/uL (4.20-5.40); White Blood Cell (WBC) Count 9.8 thou/uL (4.8-10.8)
[2019-05-20 15:21] LABS: Anion Gap 15 mmol/L (10-20); BUN (Urea Nitrogen) 23 mg/dL (9.8-20.1); Calc. Creatinine Clearance 39 mL/min (70-130); Calcium 8.9 mg/dL (7.8-10.44); Carbon Dioxide 29 mmol/L (23-31); Chloride 84 mmol/L (98-107); Estimated GFR-MDRD 25; Glucose 114 mg/dL (80-115); Sodium 125 mmol/L (136-145)
[2019-05-20 15:26] LABS: Potassium 2.9 mmol/L (3.5-5.1)
[2019-05-20 15:39] LABS: Band 8 % (5-11); Eosinophils 2 % (0-10); Hypochromia SLIGHT = 6-15 cells (100X) (0-5/hpf); Lymphocytes 19 % (21-51); MDiff Complete? YES; Monocytes 11 % (0-10); Neutrophil 59 % (42-75); Platelet Morphology Comment Appears Adequate; Polychromasia SLIGHT = 2-3 cells (100X) (0-2/hpf)
[2019-05-20] MEDS: CEFAZOLIN 2 GM in Premix Bag 1 BAG IVPB SCH ×2 (15:54→22:05)
[2019-05-20] MEDS ORDERED: Potassium Chloride 20 MEQ in Premix Bag 1 BAG IVPB SCH (16:00)
[2019-05-20] MEDS: Vancomycin HCl 1.5 GM in Sodium Chloride 0.9% 250 ML 300 ML IVPB SCH (16:44)
[2019-05-20] MEDS ORDERED: Senokot S 8.6-50 MG TAB PO PRN (19:55)
[2019-05-20] MEDS ORDERED: Bisacodyl 10 MG SUPP PR PRN (19:55)
[2019-05-20] MEDS ORDERED: Acetaminophen 325 MG TAB PO PRN (19:55)
[2019-05-20] MEDS ORDERED: Guaifenesin DM 100-10/5 ML UDCUP PO PRN (19:55)
--- NOTE | 2019-05-20 20:00 | PDOC.PN ---
- Subjective Encounter Start Date: 05/20/19 Encounter Start Time: 19:00 Subjective: lethargic, no sob or chest pain - Objective Resuscitation Status - Order Detail: 05/20/19 19:55 Resuscitation Status Routine Resuscitation Status: FULL: Full Resuscitation MAR Reviewed: Yes Vital Signs & Weight: Vital Signs (12 hours) Temp Pulse Resp BP Pulse Ox 05/20/19 15:46 98.9 F 93 16 148/65 H 91 L 05/20/19 13:50 93 L 05/20/19 13:45 98.2 F 92 20 149/73 H 93 L Weight Weight 200 lb Result Diagrams: 05/20/19 14:48 05/20/19 14:48 Phys Exam - Physical Examination HEENT: PERRLA dry mucosa Neck: no JVD, supple Respiratory: no wheezing, no rales Cardiovascular: RRR, no significant murmur Gastrointestinal: soft, non-tender, positive bowel sounds Musculoskeletal: pulses present right hip in dressing Neurological: non-focal, moves all 4 limbs Psychiatric: normal affect oriented well Dx/Plan (1) Postoperative wound infection of right hip Code(s): T81.49XA - INFECTION FOLLOWING A PROCEDURE, OTHER SURGICAL SITE, INIT Status: Acute (2) JOSH (acute kidney injury) Code(s): N17.9 - ACUTE KIDNEY FAILURE, UNSPECIFIED Status: Acute (3) HTN (hypertension) Code(s): I10 - ESSENTIAL (PRIMARY) HYPERTENSION Status: Chronic Qualifiers: Hypertension type: essential hypertension Qualified Code(s): I10 - Essential (primary) hypertension (4) Depression Code(s): F32.9 - MAJOR DEPRESSIVE DISORDER, SINGLE EPISODE, UNSPECIFIED Status : Chronic Qualifiers: Depression Type: major depressive disorder (5) Hyponatremia Code(s): E87.1 - HYPO-OSMOLALITY AND HYPONATREMIA Status: Acute - Plan clinically appears to be dry, will start NS@100mls/hr -: has josh as well, will consult -: continue paxil, replace potassium, vanc, ancef and norco -: PT/OT per ortho adv -: will need rehab/swing bed for dc plan * . Review of Systems - Medications/Allergies Allergies/Adverse Reactions: Allergies Allergy/AdvReac Type Severity Reaction Status Date / Time adhesive Allergy rash, bumps Verified 05/20/19 17:07 Medications: Current Medications Acetaminophen (Tylenol) 650 mg PO Q4H PRN PRN Reason: Headache/Fever/Mild Pain (1-3) Hydrocodone Bitart/Acetaminophen ([place] 10/325) 1 tab PO Q6H PRN PRN Reason: Moderate Pain (4-6) Last Admin: 05/20/19 14:44 Dose: 1 tab Hydrocodone Bitart/Acetaminophen ([place] 10/325) 2 tab PO Q6H PRN PRN Reason: Severe Pain (7-10) Bisacodyl (Dulcolax) 10 mg IN DAILYPRN PRN PRN Reason: Constipation Cholecalciferol (Vitamin D3) units PO DAILY [facility] Enoxaparin Sodium (Lovenox) 40 mg SC 0900 [facility] Famotidine (Pepcid) 20 mg PO BID [facility] Guaifenesin/Dextromethorphan (Robitussin Dm) 15 ml PO Q4H PRN PRN Reason: Cough Sodium Chloride (Normal Saline 0.9%) 1,000 mls @ 100 mls/hr IV INF [facility] Last Admin: 05/20/19 14:45 Dose: 1,000 mls Cefazolin Sodium/Dextrose 2 gm (/ Device) 50 mls @ 100 mls/hr IVPB 0700,1500, 2300 [facility] Last Admin: 05/20/19 15:54 Dose: 50 mls Vancomycin HCl 1.5 gm/ Sodium (Chloride) 300 mls @ 200 mls/hr IVPB 0300,1500 [facility] Last Admin: 05/20/19 16:44 Dose: 300 mls Sodium Chloride (Normal Saline 0.9%) 1,000 mls @ 100 mls/hr IV .Q10H [facility] Paroxetine HCl (Paxil) 40 mg PO QAM [facility] Senna/Docusate Sodium (Senokot S) 2 tab PO BID PRN PRN Reason: Constipation
[2019-05-20] MEDS ORDERED: Potassium Chloride 20 MEQ TAB PO SCH ×2 (20:15→22:00)
[2019-05-20] MEDS ORDERED: Famotidine 20 MG TAB PO SCH (21:00)
[2019-05-20 21:47] LABS: Anion Gap 11 mmol/L (10-20); BUN (Urea Nitrogen) 22 mg/dL (9.8-20.1); Calc. Creatinine Clearance 42 mL/min (70-130); Calcium 7.9 mg/dL (7.8-10.44); Carbon Dioxide 29 mmol/L (23-31); Chloride 87 mmol/L (98-107); Estimated GFR-MDRD 28; Glucose 141 mg/dL (80-115); Phosphorus 2.5 mg/dL (2.3-4.7); Sodium 124 mmol/L (136-145)
[2019-05-20 21:51] LABS: Potassium 2.6 mmol/L (3.5-5.1)
[2019-05-21] MEDS: Vancomycin HCl 1.5 GM in Sodium Chloride 0.9% 250 ML 300 ML IVPB SCH ×3 (02:50→15:25)
[2019-05-21] MEDS: Sodium Chloride 0.9% 1,000 ML IV SCH ×5 (02:50→23:19)
--- NOTE | 2019-05-21 03:17 | CON ---
DATE OF CONSULTATION: REASON FOR CONSULTATION: Hyponatremia, acute kidney injury as well as hypokalemia. HISTORY OF PRESENT ILLNESS: This is a 68-year-old female for the last few days has not feeling good, took some Bactrim a few weeks ago, presented to the hospital with a creatinine increase, hyponatremia, and poor p.o. intake. The patient denies no NSAID use. Denies any nausea, vomiting, or chest pain, but has had poor appetite and poor p.o. intake. PAST MEDICAL HISTORY: Significant for hip replacement, possible infection. Colon cancer, history of radiation, bilateral chronic hip pain, bilateral hip surgery, hysterectomy. Colon cancer surgery, radiation. SOCIAL HISTORY: No alcohol or drug use. FAMILY HISTORY: Negative for ESRD. ALLERGIES: REVIEWED. HOME MEDICATIONS: Reviewed. HOSPITAL MEDICATIONS: Reviewed. REVIEW OF SYSTEMS: 15-point review of system was performed negative except for positives noted above. GENERAL: The patient is awake, alert. HEAD: NECK: No swelling or lumps. NOSE: No epistaxis or discharge. EYES: No diplopia or pain. RESPIRATORY: CARDIOVASCULAR: GASTROINTESTINAL: /SURVEILLANCE SYSTEM MONITOR: MUSCULOSKELETAL: No joint pain. NEUROPSYCHIATIC SYSTEMS: No suicidal ideation. No ideation. SKIN: Denies any rash or ulcer. CONSTITUTIONAL: No fever or chills. PHYSICAL EXAMINATION: VITAL SIGNS: Pulse 90, respirations 16, blood pressure 148/65. See above. Awake, alert, in no acute distress. GENERAL APPEARANCE AND MENTAL STATUS: Fair. HEAD/NECK: Normocephalic. Atraumatic. EYES: EOMI. No deformity. EARS: Clear. No ulcers. NOSE: Intact. No lesions. MOUTH: Clear. No discharge. THROAT: Clear. No exudate. LUNGS: Clear. No crackles. CARDIAC: S1, S2. No rub. ABDOMEN: Benign. Bowel sounds positive. GENITALIA/RECTUM: Ly absent. BACK/EXTREMITIES: Edema 0+. NEUROLOGICAL: Alert and motor intact. SKIN: LYMPHATICS: LABORATORY DATA: Hemoglobin 12.6. Sodium 125, potassium 2.9. Creatinine 1.98. ASSESSMENT/RECOMMENDATION: 1. Acute kidney injury with chronic kidney disease, most likely due to decreased effective arterial blood volume. Agree with hydration. 2. Hyponatremia, due to renal failure. 3. Hypokalemia, due to poor p.o. intake. We will recheck potassium and magnesium and check labs again. Medication based on GFR. Avoid NSAIDs. No indication for dialysis at this time. Job ID: [id number]
[2019-05-21 06:37] LABS: Band 7 % (5-11); Eosinophils 1 % (0-10); Lymphocytes 23 % (21-51); MDiff Complete? YES; Mean Corpuscular HGB CONC 31.6 g/dL (32.0-36.0); Mean Corpuscular Volume 85.4 fL (78.0-98.0); Mean Platelet Volume 7.9 fL (7.4-10.4); Monocytes 17 % (0-10); Neutrophil 52 % (42-75); Platelet Count 413 thou/uL (130-400); Platelet Morphology Comment Appears Increased; White Blood Cell (WBC) Count 8.7 thou/uL (4.8-10.8)
[2019-05-21 06:38] LABS: ALT (SGPT) 8 U/L (8-55); AST (SGOT) 19 U/L (5-34); Albumin 2.6 g/dL (3.4-4.8); Alkaline Phosphatase 144 U/L (40-150); Anion Gap 14 mmol/L (10-20); BUN (Urea Nitrogen) 20 mg/dL (9.8-20.1); Bilirubin, Total 0.6 mg/dL (0.2-1.2); Calc. Creatinine Clearance 41 mL/min (70-130); Calcium 8.6 mg/dL (7.8-10.44); Carbon Dioxide 25 mmol/L (23-31); Chloride 93 mmol/L (98-107); Estimated GFR-MDRD 27; Globulin 3.7 g/dL (2.4-3.5); Glucose 107 mg/dL (80-115); Potassium 3.2 mmol/L (3.5-5.1); Protein, Total 6.3 g/dL (6.0-8.3); Sodium 129 mmol/L (136-145)
[2019-05-21] MEDS ORDERED: Fentanyl 100 MCG/2 ML VIAL ONE ×3 (08:31→11:11)
[2019-05-21] MEDS ORDERED: Midazolam HCl 2 mg/2 ml Vial ONE (08:31)
[2019-05-21] MEDS ORDERED: Potassium Chloride 20 MEQ in Premix Bag 1 BAG IVPB SCH ×2 (08:45)
[2019-05-21] MEDS: CEFAZOLIN 2 GM in Premix Bag 1 BAG IVPB SCH ×3 (08:49→23:17)
[2019-05-21] MEDS ORDERED: Ondansetron PF 4 MG/2 ML Vial IVP PRN (08:52)
[2019-05-21] MEDS ORDERED: Acetaminophen 325 MG TAB PO PRN (08:52)
[2019-05-21] MEDS ORDERED: Zolpidem Tartrate 5 MG TAB PO PRN (08:52)
[2019-05-21] MEDS ORDERED: Promethazine HCl 25 MG/ML VIAL IM PRN ×2 (08:52→10:58)
[2019-05-21] MEDS ORDERED: diphenhydrAMINE 25 MG CAP PO PRN (08:52)
[2019-05-21] MEDS ORDERED: Fentanyl 100 MCG/2 ML VIAL SLOW IVP PRN (08:52)
[2019-05-21] MEDS ORDERED: Tranexamic Acid 1,000 MG/10 ML VIAL ONE (08:58)
[2019-05-21] MEDS ORDERED: Enoxaparin Sodium 40 MG/0.4 ML SYRINGE SC SCH (09:00)
[2019-05-21] MEDS ORDERED: Ondansetron HCl/PF 4 MG/2 ML Vial IVP PRN (10:58)
[2019-05-21] MEDS ORDERED: Promethazine HCl 25 MG/ML VIAL SLOW IVP PRN (10:58)
--- NOTE | 2019-05-21 11:22 | RAD ---
Radiograph right hip 2 views: HISTORY: 68-year-old female with right hip pain FINDINGS: Metallic acetabular cup articulates with metallic femoral head and neck prosthesis with stem that cricket ches proximal femoral diaphysis. Subcutaneous emphysema indicates very recent postoperative status. However, the images appear very similar to those of 04/28/2019. IMPRESSION: Status post total right hip replacement arthroplasty.
[2019-05-21] MEDS: Aspirin 81 mg Enteric Coated Tablet PO SCH ×2 (11:25→21:06)
[2019-05-21] MEDS: Ferrous Gluconate 324 MG TAB PO SCH ×2 (11:25→21:04)
[2019-05-21] MEDS: Multivitamin W/ Minerals 1 TAB PO SCH (11:26)
[2019-05-21] MEDS: Senokot S 8.6-50 MG TAB PO SCH ×2 (11:26→21:07)
--- NOTE | 2019-05-21 11:41 | PRG ---
DATE OF SERVICE: 05/21/2019 SUBJECTIVE: A 68-year-old female, being seen for acute kidney injury. The patient denies any nausea, vomiting, or chest pain. OBJECTIVE: GENERAL: The patient is awake and alert. VITAL SIGNS: Pulse 77, breathing 16, blood pressure GENERAL APPEARANCE AND MENTAL STATUS: Fair. HEAD/NECK: Normocephalic. Atraumatic. EYES: EOMI. No deformity. EARS: Clear. No ulcers. NOSE: Intact. No lesions. MOUTH: Clear. No discharge. THROAT: Clear. No exudate. LUNGS: Clear. No crackles. CARDIAC: S1, S2. No rub. ABDOMEN: Benign. Bowel sounds positive. GENITALIA/RECTUM: Ly absent. BACK/EXTREMITIES: Edema 0+. NEUROLOGICAL: Alert and motor intact. SKIN: LYMPHATICS: LABORATORY DATA: Hemoglobin 10. Sodium 129, potassium 3.2. ASSESSMENT AND PLAN: 1. Acute kidney injury, improved. 2. Hypertension, stable. 3. Anemia, stable. 4. Chronic kidney disease stage 4, stable. 5. Hypokalemia, recommend 40 mEq of potassium replacement. 6. Hyponatremia, improved. Job ID: [id number]
[2019-05-21] MEDS ORDERED: Potassium Chloride 20 MEQ TAB PO SCH (12:15)
[2019-05-21] MEDS: HYDROcodone/Acetaminophen 10/325 mg Tablet PO PRN ×2 (12:33→21:01)
[2019-05-21] MEDS: PARoxetine 20 MG TAB PO SCH (12:34)
[2019-05-21] MEDS: Famotidine 20 MG TAB PO SCH (12:35)
--- NOTE | 2019-05-21 14:55 | PDOC.PN ---
- Subjective Encounter Start Date: 05/21/19 Encounter Start Time: 13:30 Subjective: no sob or chest pain - Objective Resuscitation Status - Order Detail: 05/20/19 19:55 Resuscitation Status Routine Resuscitation Status: FULL: Full Resuscitation MAR Reviewed: Yes Vital Signs & Weight: Vital Signs (12 hours) Temp Pulse Resp BP Pulse Ox 05/21/19 03:22 97.9 F 77 16 149/78 H 93 L Weight Weight 200 lb I&O: 05/20/19 05/21/19 05/22/19 06:59 06:59 06:59 Intake Total 2029 Balance 2029 Result Diagrams: 05/22/19 05:24 05/22/19 05:24 Phys Exam - Physical Examination HEENT: PERRLA, sclera anicteric Neck: no JVD, supple Respiratory: no rales, no rhonchi Cardiovascular: RRR, no significant murmur Gastrointestinal: soft, non-tender, positive bowel sounds Musculoskeletal: no edema, pulses present Neurological: non-focal, moves all 4 limbs Dx/Plan (1) Postoperative wound infection of right hip Code(s): T81.49XA - INFECTION FOLLOWING A PROCEDURE, OTHER SURGICAL SITE, INIT Status: Acute Comment: s/p I&D with copious irrigation (2) JOSH (acute kidney injury) Code(s): N17.9 - ACUTE KIDNEY FAILURE, UNSPECIFIED Status: Acute Comment: resolving (3) HTN (hypertension) Code(s): I10 - ESSENTIAL (PRIMARY) HYPERTENSION Status: Chronic Qualifiers: Hypertension type: essential hypertension Qualified Code(s): I10 - Essential (primary) hypertension (4) Depression Code(s): F32.9 - MAJOR DEPRESSIVE DISORDER, SINGLE EPISODE, UNSPECIFIED Status : Chronic Qualifiers: Depression Type: major depressive disorder (5) Hyponatremia Code(s): E87.1 - HYPO-OSMOLALITY AND HYPONATREMIA Status: Acute Comment: resolving (6) Hypokalemia Code(s): E87.6 - HYPOKALEMIA Status: Resolved - Plan sodium is slowly coming up, will replace potassium -: prelim wound cultures are growing staph, await full results -: continue vanc, ancef, gentle IV hydration, norco prn pain -: mobilize with PT per ortho advice -: labs in am, will f/u * . Review of Systems - Medications/Allergies Allergies/Adverse Reactions: Allergies Allergy/AdvReac Type Severity Reaction Status Date / Time adhesive Allergy rash, bumps Verified 05/20/19 17:07 Medications: Current Medications Acetaminophen (Tylenol) 650 mg PO Q4H PRN PRN Reason: Headache/Fever or Pain Hydrocodone Bitart/Acetaminophen ([place] 10/325) 1 tab PO Q6H PRN PRN Reason: Moderate Pain (4-6) Last Admin: 05/20/19 22:09 Dose: 1 tab Hydrocodone Bitart/Acetaminophen ([place] 10/325) 2 tab PO Q6H PRN PRN Reason: Severe Pain (7-10) Last Admin: 05/21/19 12:33 Dose: 2 tab Aspirin (Ecotrin) 81 mg PO BID [facility] Last Admin: 05/21/19 11:25 Dose: Not Given Bisacodyl (Dulcolax) 10 mg [place] DAILYPRN PRN PRN Reason: Constipation Cholecalciferol (Vitamin D3) 1,000 units PO DAILY [facility] Last Admin: 05/21/19 11:25 Dose: Not Given Diphenhydramine HCl (Benadryl) 25 mg PO Q6H PRN PRN Reason: Itching Enoxaparin Sodium (Lovenox) 40 mg SC 2100 [facility] Famotidine (Pepcid) 20 mg PO DAILY [facility] Last Admin: 05/21/19 12:35 Dose: 20 mg Fentanyl (Sublimaze) 50 mcg SLOW IVP Q30MIN PRN PRN Reason: SEVERE BREAKTHROUGH PAIN Ferrous Gluconate (Fergon) 324 mg PO BID [facility] Last Admin: 05/21/19 11:25 Dose: Not Given Guaifenesin/Dextromethorphan (Robitussin Dm) 15 ml PO Q4H PRN PRN Reason: Cough Cefazolin Sodium/Dextrose 2 gm (/ Device) 50 mls @ 100 mls/hr IVPB 0700,1500, 2300 [facility] Last Admin: 05/21/19 14:39 Dose: 50 mls Vancomycin HCl 1.5 gm/ Sodium (Chloride) 300 mls @ 200 mls/hr IVPB 0300,1500 [facility] Last Admin: 05/21/19 03:59 Dose: 300 mls Sodium Chloride (Normal Saline 0.9%) 1,000 mls @ 100 mls/hr IV .Q10H [facility] Last Admin: 05/21/19 05:26 Dose: Not Given Iron/Minerals/Multivitamins (Theragran M) 1 tab PO DAILY [facility] Last Admin: 05/21/19 11:26 Dose: Not Given Ondansetron HCl (Zofran) 4 mg IVP Q6H PRN PRN Reason: Nausea/Vomiting Paroxetine HCl (Paxil) 40 mg PO QAM [facility] Last Admin: 05/21/19 12:34 Dose: 40 mg Promethazine HCl (Phenergan) 12.5 mg IM Q4H PRN PRN Reason: Nausea/Vomiting Senna/Docusate Sodium (Senokot S) 2 tab PO BID [facility] Last Admin: 05/21/19 11:26 Dose: Not Given Sodium Chloride (Flush - Normal Saline) 10 ml IVF PRN PRN PRN Reason: Saline Flush Zolpidem Tartrate (Ambien) 5 mg PO HSPRN PRN PRN Reason: Insomnia
--- NOTE | 2019-05-21 15:10 | ULT ---
ULTRASOUND RENAL: DATE: 05/21/2019 HISTORY: 68-year-old female with acute kidney injury FINDINGS: No hydronephrosis bilaterally. Ly catheter within empty urinary bladder. 1.5 cm cortical cyst at right renal mid pole. 2.5 cm cyst at medial left renal lower pole. Right kidney 11 x 5 x 4.5 cm. Left kidney 11.5 x 4.5 x 5 cm. IMPRESSION: 1. No hydronephrosis. 2. 2 right renal cysts.
[2019-05-21] MEDS ORDERED: Glycopyrrolate 0.2 MG/ML 5 ML SYRINGE ONE (15:37)
[2019-05-21] MEDS ORDERED: Dexamethasone 20 MG/5 ML VIAL ONE (15:37)
[2019-05-21] MEDS ORDERED: Rocuronium Bromide 10 MG/ML (10ML VIAL) ONE (15:37)
[2019-05-21] MEDS ORDERED: Ondansetron PF 4 MG/2 ML Vial ONE (15:37)
[2019-05-21] MEDS ORDERED: PROPOFOL 200 MG/20 ML VIAL ONE (15:37)
[2019-05-21] MEDS ORDERED: Lidocaine 1% PF 5 ML VIAL ONE (15:37)
[2019-05-21 16:25] LABS: Anion Gap 13 mmol/L (10-20); BUN (Urea Nitrogen) 20 mg/dL (9.8-20.1); Calc. Creatinine Clearance 42 mL/min (70-130); Calcium 8.1 mg/dL (7.8-10.44); Carbon Dioxide 26 mmol/L (23-31); Chloride 95 mmol/L (98-107); Estimated GFR-MDRD 27; Glucose 166 mg/dL (80-115); Potassium 3.7 mmol/L (3.5-5.1); Sodium 130 mmol/L (136-145)
[2019-05-21] MEDS: Enoxaparin Sodium 40 MG/0.4 ML SYRINGE SC SCH (21:05)
--- NOTE | 2019-05-21 21:12 | CON ---
DATE OF CONSULTATION: 05/21/2019 REASON FOR CONSULTATION: Right hip replacement infection. HISTORY OF PRESENT ILLNESS: A 68-year-old who has a history of colon cancer, in remission after treatment, and right and left hip replacements, first one in May of last year and this one, a right side, on May 06. Unfortunately, the patient developed pain and drainage, and required admission for management. The patient had removal of the right hip prosthesis and I believe she had a functional spacer placed. A note from Dr. Teague is not yet transcribed. Currently, she appears in no distress. No headaches, visual symptoms, sore throat, odynophagia, or dysphagia. No dyspnea or chest pain. No abdominal pain. She has a Ly catheter in place at least temporarily. Peripheral IV access. The access is in the foot because of access difficulty. PAST MEDICAL HISTORY: Hypertension; colon cancer, in remission after resection; depression; osteoarthrosis; bilateral hip replacements. SOCIAL HISTORY: Retired. Never a smoker. FAMILY HISTORY: Noncontributory. ALLERGIES: ADHESIVE TAPE, BUT NO MEDICATION ALLERGIES. CURRENT MEDICATIONS: 1. Tylenol. 2. [place]. 3. Cefazolin. 4. Lovenox. 5. Robitussin. 6. Vancomycin. PHYSICAL EXAMINATION: VITAL SIGNS: T-max 98.9, blood pressure 140/70, pulse 77, respirations 16, and O2 saturation 93 to 96. SKIN: The right hip site with usual appearance postoperatively, she has a Ly catheter and IV access in the left foot. No lymphadenopathy. HEENT: Ocular movements conjugate. Oral cavity is normal. NECK: Supple. LUNGS: Symmetric. Clear breath sounds. No wheezing. HEART: S1, S2. Regular rate without murmurs. ABDOMEN: Soft, not distended or tender. No ascites. No bladder distention. NEURO: Nonfocal with limitations of assessment of the right lower extremity strength. Plantar responses are flexor. Pulses are 1+ in dorsalis pedis. Cognitive function appears to be intact. LABORATORY DATA: White cell count is 9.8 and 8.7, hemoglobin 10.6, platelets 369 and now 413, neutrophils 59% and 19%, lymphocytes 19%. Sodium 130, creatinine 1.84. Baseline creatinine is 1.07 just a few weeks ago. Liver profile normal. CRP 30. Albumin 2.6. Urinalysis was not remarkable. Hip culture, Staphylococcus aureus , pending susceptibility studies. ASSESSMENT: Colon cancer, in remission, osteoarthrosis, bilateral hip replacements and infection right hip, status post implant removal with placement of a functional spacer. I did not review Dr. Teague's note yet since it has not yet been transcribed. Most likely, the patient will continue on either vancomycin or cefazolin, PICC line placement. I believe the PICC line has already been ordered and will be placed tomorrow. Once we have the final susceptibilities of the organism, then will plan long-term therapy for around 42 days and then transition to oral therapy depending on the susceptibility study results. After that, she will probably be on chronic suppression with either doxycycline or cephalexin. I have discussed potential adverse reactions from the PICC line as well as antimicrobial therapy including clot development, skin hypersensitivity reaction, colitis as the most likely problems that may develop. The patient understood and agreed with management and recommendations. Job ID: [id number] [id number]
[2019-05-22 02:36] LABS: Vancomycin, Trough 39.3 ug/mL
[2019-05-22] MEDS ORDERED: Vancomycin HCl 1.5 GM in Sodium Chloride 0.9% 250 ML 300 ML IVPB SCH (03:00)
[2019-05-22 05:39] LABS: Hemoglobin 7.9 g/dL (12.0-16.0); Mean Corpuscular HGB CONC 31.4 g/dL (32.0-36.0); Mean Corpuscular Volume 85.8 fL (78.0-98.0); Mean Platelet Volume 7.4 fL (7.4-10.4); Platelet Count 391 thou/uL (130-400); RBC Distribution Width 14.3 % (11.5-14.5); Red Blood Cell (RBC) Count 2.94 mill/uL (4.20-5.40); White Blood Cell (WBC) Count 9.6 thou/uL (4.8-10.8)
[2019-05-22 06:04] LABS: Anion Gap 9 mmol/L (10-20); BUN (Urea Nitrogen) 19 mg/dL (9.8-20.1); Calc. Creatinine Clearance 46 mL/min (70-130); Calcium 8.3 mg/dL (7.8-10.44); Carbon Dioxide 27 mmol/L (23-31); Chloride 97 mmol/L (98-107); Estimated GFR-MDRD 30; Glucose 128 mg/dL (80-115); Potassium 3.9 mmol/L (3.5-5.1); Sodium 129 mmol/L (136-145)
[2019-05-22] MEDS: HYDROcodone/Acetaminophen 10/325 mg Tablet PO PRN (06:46)
[2019-05-22] MEDS: CEFAZOLIN 2 GM in Premix Bag 1 BAG IVPB SCH ×3 (06:49→22:05)
[2019-05-22] MEDS: Aspirin 81 mg Enteric Coated Tablet PO SCH ×2 (08:28→21:10)
[2019-05-22] MEDS: PARoxetine 20 MG TAB PO SCH (08:28)
[2019-05-22] MEDS: Senokot S 8.6-50 MG TAB PO SCH ×2 (08:29→21:10)
[2019-05-22] MEDS: Famotidine 20 MG TAB PO SCH (08:30)
[2019-05-22] MEDS: Multivitamin W/ Minerals 1 TAB PO SCH (08:30)
[2019-05-22] MEDS: Ferrous Gluconate 324 MG TAB PO SCH ×2 (08:30→21:10)
[2019-05-22] MEDS: Sodium Chloride 0.9% 1,000 ML IV SCH ×2 (08:33→22:05)
--- NOTE | 2019-05-22 08:44 | OP ---
DATE OF PROCEDURE: 05/21/2019 PREOPERATIVE DIAGNOSIS: Infected right total hip. POSTOPERATIVE DIAGNOSIS: Infected right total hip. PROCEDURE PERFORMED: I and D of the right hip with revision of one component total hip arthroplasty. TRANSFERRER: Robert Hernandes PA-C BLOOD LOSS: 100. SPECIMEN: None. DRAINS: None. COMPLICATION: None. DESCRIPTION OF PROCEDURE: The patient was taken to the operative room, where general anesthesia was induced. She was placed in left lateral decubitus position. Right leg was prepped and draped in sterile fashion. Opened up the old incision. There was a little bit of purulence in the wound. This was irrigated free. I removed some Vicryl from the IT band. There was pus beneath the IT band. The abductors were intact, but I took the abductors down. All sutures were removed. I dislocated the hip, removed the femoral head. There was some difficulty. I circumferentially exposed the acetabulum. Used osteotomes to remove the acetabulum. Irrigation was performed. I impacted a new acetabulum into place after about 6 L of irrigation was performed. Then, irrigated another 4 L of irrigation throughout the hip. I placed a new standard 36 mm steel head. Hip was reduced. Irrigation was performed again. IT band was closed with #2 Quill, subcutaneous was closed with 0 Quill, skin was closed with Prolene. Sterile dressing was applied. Job ID: [id number]
--- NOTE | 2019-05-22 12:50 | PDOC.PN ---
- Subjective Encounter Start Date: 05/22/19 Encounter Start Time: 07:45 Subjective: feels better, no sob -: no pain, eating well - Objective Resuscitation Status - Order Detail: 05/20/19 19:55 Resuscitation Status Routine Resuscitation Status: FULL: Full Resuscitation MAR Reviewed: Yes Vital Signs & Weight: Vital Signs (12 hours) Temp Pulse Resp BP Pulse Ox 05/22/19 12:14 97.6 F 95 20 133/63 96 05/22/19 07:49 97.8 F 88 16 150/71 H 97 05/22/19 07:45 97 05/22/19 03:00 97.8 F 89 16 131/71 99 Weight Weight 200 lb I&O: 05/21/19 05/22/19 05/23/19 06:59 06:59 06:59 Intake Total 2029 3429 Output Total 1674 Balance 2029 1754 Result Diagrams: 05/22/19 05:24 05/22/19 05:24 Phys Exam - Physical Examination HEENT: PERRLA, moist MMs Neck: no JVD, supple Respiratory: no wheezing, no rales Cardiovascular: RRR, no significant murmur Gastrointestinal: soft, non-tender, positive bowel sounds Musculoskeletal: no edema, pulses present Neurological: non-focal, moves all 4 limbs Psychiatric: normal affect, A&O x 3 Dx/Plan (1) Postoperative wound infection of right hip Code(s): T81.49XA - INFECTION FOLLOWING A PROCEDURE, OTHER SURGICAL SITE, INIT Status: Acute (2) JOSH (acute kidney injury) Code(s): N17.9 - ACUTE KIDNEY FAILURE, UNSPECIFIED Status: Acute Comment: resolving (3) HTN (hypertension) Code(s): I10 - ESSENTIAL (PRIMARY) HYPERTENSION Status: Chronic Qualifiers: Hypertension type: essential hypertension Qualified Code(s): I10 - Essential (primary) hypertension (4) Depression Code(s): F32.9 - MAJOR DEPRESSIVE DISORDER, SINGLE EPISODE, UNSPECIFIED Status : Chronic Qualifiers: Depression Type: major depressive disorder (5) Hyponatremia Code(s): E87.1 - HYPO-OSMOLALITY AND HYPONATREMIA Status: Acute Comment: resolving (6) Hypokalemia Code(s): E87.6 - HYPOKALEMIA Status: Resolved - Plan hemostable -: electrolytes are getting stable -: is on vanc, prelim cultures are growing staph -: on vanc, iv fluids, norco prn -: ensure 1 can tid, encourage meat/protein intake, alb was 2.6 on admission * . Review of Systems - Medications/Allergies Allergies/Adverse Reactions: Allergies Allergy/AdvReac Type Severity Reaction Status Date / Time adhesive Allergy rash, bumps Verified 05/20/19 17:07 Medications: Current Medications Acetaminophen (Tylenol) 650 mg PO Q4H PRN PRN Reason: Headache/Fever or Pain Hydrocodone Bitart/Acetaminophen ([place] 10/325) 1 tab PO Q6H PRN PRN Reason: Moderate Pain (4-6) Last Admin: 05/20/19 22:09 Dose: 1 tab Hydrocodone Bitart/Acetaminophen ([place] 10/325) 2 tab PO Q6H PRN PRN Reason: Severe Pain (7-10) Last Admin: 05/22/19 06:46 Dose: 2 tab Aspirin (Ecotrin) 81 mg PO BID [facility] Last Admin: 05/22/19 08:28 Dose: 81 mg Bisacodyl (Dulcolax) 10 mg [place] DAILYPRN PRN PRN Reason: Constipation Cholecalciferol (Vitamin D3) 1,000 units PO DAILY [facility] Last Admin: 05/22/19 08:30 Dose: 1,000 units Diphenhydramine HCl (Benadryl) 25 mg PO Q6H PRN PRN Reason: Itching Enoxaparin Sodium (Lovenox) 40 mg SC 2100 [facility] Last Admin: 05/21/19 21:05 Dose: 40 mg Famotidine (Pepcid) 20 mg PO DAILY [facility] Last Admin: 05/22/19 08:30 Dose: 20 mg Fentanyl (Sublimaze) 50 mcg SLOW IVP Q30MIN PRN PRN Reason: SEVERE BREAKTHROUGH PAIN Ferrous Gluconate (Fergon) 324 mg PO BID [facility] Last Admin: 05/22/19 08:30 Dose: 324 mg Guaifenesin/Dextromethorphan (Robitussin Dm) 15 ml PO Q4H PRN PRN Reason: Cough Cefazolin Sodium/Dextrose 2 gm (/ Device) 50 mls @ 100 mls/hr IVPB 0700,1500, 2300 [facility] Last Admin: 05/22/19 06:49 Dose: 50 mls Sodium Chloride (Normal Saline 0.9%) 1,000 mls @ 100 mls/hr IV .Q10H [facility] Last Admin: 05/22/19 08:33 Dose: 1,000 mls Iron/Minerals/Multivitamins (Theragran M) 1 tab PO DAILY [facility] Last Admin: 05/22/19 08:30 Dose: 1 tab Ondansetron HCl (Zofran) 4 mg IVP Q6H PRN PRN Reason: Nausea/Vomiting Paroxetine HCl (Paxil) 40 mg PO QAM [facility] Last Admin: 05/22/19 08:28 Dose: 40 mg Promethazine HCl (Phenergan) 12.5 mg IM Q4H PRN PRN Reason: Nausea/Vomiting Senna/Docusate Sodium (Senokot S) 2 tab PO BID [facility] Last Admin: 05/22/19 08:29 Dose: 2 tab Sodium Chloride (Flush - Normal Saline) 10 ml IVF PRN PRN PRN Reason: Saline Flush Zolpidem Tartrate (Ambien) 5 mg PO HSPRN PRN PRN Reason: Insomnia
--- NOTE | 2019-05-22 12:57 | PRG ---
DATE OF SERVICE: 05/22/2019 SUBJECTIVE: Lizzy is postoperative day #1 from incision, drainage, and washout of a right total hip arthroplasty. Laboratory demonstrated that her vancomycin trough was 39.3, however, microbiology revealed a Staph aureus resistant only to amoxicillin and piperacillin. Otherwise, pansensitive. Dr. Coats has been consulted for antibiotic treatment. OBJECTIVE: Exam her incision has scant drainage. She is neurovascularly intact. There is no malrotation or shortening. NEUROLOGIC: She is alert and oriented to person, place, time, and situation. Grossly nonfocal. Appropriate and responsive with examiner. She has been up, walking and moving, and more comfortable today. LABORATORY DATA: Hemoglobin and hematocrit are 7.9 and 25.3. IMPRESSION: 1. A 68-year-old female, postoperative day #1, incision, drainage, and washout secondary to pyogenic right total hip arthroplasty. 2. Anemia. 3. Vancomycin trough toxicity. PLAN: Continue current care. Discontinue vancomycin. Antibiotic regimen per Dr. Coats. We will recheck the patient tomorrow. Continue PT. Job ID: [id number]
--- NOTE | 2019-05-22 13:04 | SPC ---
Ultrasound and Fluoroscopic guided left upper extremity PICC placement HISTORY: Right hip infection. Patient needs long-term IV antibiotics. TECHNIQUE: Informed consent obtained prior to the procedure. An appropriate access site was determined with ultrasound guidance. The area was then meticulously pr epped and draped in usual sterile fashion. Skin overlying the left basilic vein anesthetized with 1% buffered lidocaine. Utilizing direct sonogr aphic guidance, vascular access is obtained via the left basilic vein, and an 0.018in guidewire was advanced to the cavoatrial junction. Intravascular length is calculated at 45 cm, and the PICC is cut accordingly. Needle is removed and replaced with a peel-away sheath. The PICC was advanced over the wire. Wire and peel-away sheath were removed. The tip of the catheter overlies the cavoatrial junction. The catheter was accessed and aspirated/flushed easily. Exposure data: 0.5 minutes of fluoroscopic time 45 mGy square centimeter FINDINGS: Technically successful placement of a 45 centimeter single lumen 5 [place] left upper extremity PICC l ine. IMPRESSION: Successful ultrasound guided placement of a left upper extremity PICC.
[2019-05-22 14:23] LABS: Vancomycin, Trough 28.6 ug/mL
--- NOTE | 2019-05-22 15:32 | PRG ---
DATE OF SERVICE: 05/22/2019 SUBJECTIVE: A 68-year-old female, being seen for acute kidney injury. The patient denies any nausea, vomiting, or chest pain. OBJECTIVE: GENERAL: The patient is awake and alert. VITAL SIGNS: Pulse 75, breathing 16, blood pressure 133/63. GENERAL APPEARANCE AND MENTAL STATUS: Fair. HEAD/NECK: Normocephalic. Atraumatic. EYES: EOMI. No deformity. EARS: Clear. No ulcers. NOSE: Intact. No lesions. MOUTH: Clear. No discharge. THROAT: Clear. No exudate. LUNGS: Clear. No crackles. CARDIAC: S1, S2. No rub. ABDOMEN: Benign. Bowel sounds positive. GENITALIA/RECTUM: Ly absent. BACK/EXTREMITIES: Edema 0+. NEUROLOGICAL: Alert and motor intact. SKIN: LYMPHATICS: LABORATORY DATA: Hemoglobin 7.9. Creatinine 1.6. ASSESSMENT AND PLAN: 1. Acute kidney injury, improved. 2. Chronic kidney disease stage 3, stable. 3. Acute tubular necrosis, improved. 4. Hypokalemia, improved. 5. Hyponatremia improved. We will follow the patient's renal function closely. No indication for dialysis. Job ID: [id number]
[2019-05-22] MEDS: Enoxaparin Sodium 40 MG/0.4 ML SYRINGE SC SCH (21:10)
[2019-05-23 06:26] LABS: Hemoglobin 7.7 g/dL (12.0-16.0); Mean Corpuscular HGB CONC 31.9 g/dL (32.0-36.0); Mean Corpuscular Hemoglobin 27.6 pg (27.0-31.0); Mean Corpuscular Volume 86.6 fL (78.0-98.0); Mean Platelet Volume 7.3 fL (7.4-10.4); Platelet Count 412 thou/uL (130-400); RBC Distribution Width 14.4 % (11.5-14.5); White Blood Cell (WBC) Count 9.4 thou/uL (4.8-10.8)
[2019-05-23] MEDS: CEFAZOLIN 2 GM in Premix Bag 1 BAG IVPB SCH ×3 (06:53→22:38)
[2019-05-23] MEDS: Senokot S 8.6-50 MG TAB PO SCH ×2 (08:06→20:15)
[2019-05-23] MEDS: Aspirin 81 mg Enteric Coated Tablet PO SCH ×2 (08:06→20:15)
[2019-05-23] MEDS: Famotidine 20 MG TAB PO SCH (08:06)
[2019-05-23] MEDS: Multivitamin W/ Minerals 1 TAB PO SCH (08:07)
[2019-05-23] MEDS: Metoprolol Tartrate 25 MG TAB PO SCH ×2 (08:07→20:15)
[2019-05-23] MEDS: NIFEdipine XL 30 MG TAB PO SCH (08:07)
[2019-05-23] MEDS: PARoxetine 20 MG TAB PO SCH (08:07)
[2019-05-23] MEDS: Ferrous Gluconate 324 MG TAB PO SCH ×2 (08:07→20:15)
[2019-05-23] MEDS: Sodium Chloride 0.9% 1,000 ML IV SCH (08:12)
--- NOTE | 2019-05-23 11:15 | PDOC.PN ---
- Subjective Encounter Start Date: 05/23/19 Encounter Start Time: 10:30 Subjective: no sob or pain -: feels better -: has been ambulating with PT - Objective Resuscitation Status - Order Detail: 05/20/19 19:55 Resuscitation Status Routine Resuscitation Status: FULL: Full Resuscitation MAR Reviewed: Yes Vital Signs & Weight: Vital Signs (12 hours) Temp Pulse Resp BP BP Pulse Ox 05/23/19 08:14 92 L 05/23/19 08:07 99 169/89 H 05/23/19 07:31 97.9 F 99 16 169/82 H 94 L 05/23/19 04:33 98 F 92 16 158/84 H 95 05/22/19 23:51 98.8 F 92 16 155/77 H 95 Weight Weight 200 lb I&O: 05/22/19 05/23/19 05/24/19 06:59 06:59 06:59 Intake Total 3430 2640 Output Total 1675 1650 1350 Balance 1755 990 -1350 Result Diagrams: 05/23/19 06:05 05/22/19 05:24 Phys Exam - Physical Examination HEENT: PERRLA, moist MMs Neck: no JVD, supple Respiratory: no wheezing, no rales Cardiovascular: RRR, no significant murmur Gastrointestinal: soft, non-tender, positive bowel sounds Musculoskeletal: no edema, pulses present Neurological: non-focal, moves all 4 limbs Psychiatric: normal affect, A&O x 3 Dx/Plan (1) Postoperative wound infection of right hip Code(s): T81.49XA - INFECTION FOLLOWING A PROCEDURE, OTHER SURGICAL SITE, INIT Status: Acute Comment: s/p I&D with copious irrigation (2) JOSH (acute kidney injury) Code(s): N17.9 - ACUTE KIDNEY FAILURE, UNSPECIFIED Status: Acute Comment: resolving (3) HTN (hypertension) Code(s): I10 - ESSENTIAL (PRIMARY) HYPERTENSION Status: Chronic Qualifiers: Hypertension type: essential hypertension Qualified Code(s): I10 - Essential (primary) hypertension (4) Depression Code(s): F32.9 - MAJOR DEPRESSIVE DISORDER, SINGLE EPISODE, UNSPECIFIED Status : Chronic Qualifiers: Depression Type: major depressive disorder (5) Hyponatremia Code(s): E87.1 - HYPO-OSMOLALITY AND HYPONATREMIA Status: Acute Comment: resolving (6) Hypokalemia Code(s): E87.6 - HYPOKALEMIA Status: Resolved - Plan dc iv fluids, labs per nephrology adv, electrolytes are stabilizing -: is eating and drinking well now -: got PICC line yest in left UE, continue cefazolin -: cultures are growing mssa, will need 5-6 weeks of antibiotics -: rehab/swing eval once ortho clears her (not sure if she will have redebride * . Review of Systems - Medications/Allergies Allergies/Adverse Reactions: Allergies Allergy/AdvReac Type Severity Reaction Status Date / Time adhesive Allergy rash, bumps Verified 05/20/19 17:07 Medications: Current Medications Acetaminophen (Tylenol) 650 mg PO Q4H PRN PRN Reason: Headache/Fever or Pain Hydrocodone Bitart/Acetaminophen ([place] 10/325) 1 tab PO Q6H PRN PRN Reason: Moderate Pain (4-6) Last Admin: 05/20/19 22:09 Dose: 1 tab Hydrocodone Bitart/Acetaminophen ([place] 10/325) 2 tab PO Q6H PRN PRN Reason: Severe Pain (7-10) Last Admin: 05/22/19 06:46 Dose: 2 tab Aspirin (Ecotrin) 81 mg PO BID [facility] Last Admin: 05/23/19 08:06 Dose: 81 mg Bisacodyl (Dulcolax) 10 mg [place] DAILYPRN PRN PRN Reason: Constipation Cholecalciferol (Vitamin D3) 1,000 units PO DAILY [facility] Last Admin: 05/23/19 08:07 Dose: 1,000 units Diphenhydramine HCl (Benadryl) 25 mg PO Q6H PRN PRN Reason: Itching Enoxaparin Sodium (Lovenox) 40 mg SC 2100 [facility] Last Admin: 05/22/19 21:10 Dose: 40 mg Famotidine (Pepcid) 20 mg PO DAILY [facility] Last Admin: 05/23/19 08:06 Dose: 20 mg Fentanyl (Sublimaze) 50 mcg SLOW IVP Q30MIN PRN PRN Reason: SEVERE BREAKTHROUGH PAIN Ferrous Gluconate (Fergon) 324 mg PO BID [facility] Last Admin: 05/23/19 08:07 Dose: 324 mg Guaifenesin/Dextromethorphan (Robitussin Dm) 15 ml PO Q4H PRN PRN Reason: Cough Cefazolin Sodium/Dextrose 2 gm (/ Device) 50 mls @ 100 mls/hr IVPB 0700,1500, 2300 [facility] Last Admin: 05/23/19 06:53 Dose: 50 mls Iron/Minerals/Multivitamins (Theragran M) 1 tab PO DAILY [facility] Last Admin: 05/23/19 08:07 Dose: 1 tab Metoprolol Tartrate (Lopressor) 25 mg PO BID [facility] Last Admin: 05/23/19 08:07 Dose: 25 mg Nifedipine (Procardia Xl) 30 mg PO DAILY [facility] Last Admin: 05/23/19 08:07 Dose: 30 mg Ondansetron HCl (Zofran) 4 mg IVP Q6H PRN PRN Reason: Nausea/Vomiting Paroxetine HCl (Paxil) 40 mg PO QAM [facility] Last Admin: 05/23/19 08:07 Dose: 40 mg Promethazine HCl (Phenergan) 12.5 mg IM Q4H PRN PRN Reason: Nausea/Vomiting Senna/Docusate Sodium (Senokot S) 2 tab PO BID [facility] Last Admin: 05/23/19 08:06 Dose: 2 tab Sodium Chloride (Flush - Normal Saline) 10 ml IVF PRN PRN PRN Reason: Saline Flush Zolpidem Tartrate (Ambien) 5 mg PO HSPRN PRN PRN Reason: Insomnia
[2019-05-23] MEDS: HYDROcodone/Acetaminophen 10/325 mg Tablet PO PRN (11:45)
--- NOTE | 2019-05-23 13:35 | PRG ---
DATE OF SERVICE: 05/23/2019 SUBJECTIVE: A 68-year-old female, being seen for acute kidney injury. The patient denied nausea, vomiting, or chest pain. OBJECTIVE: CONSTITUTIONAL: Awake, alert, in no acute distress. VITAL SIGNS: Afebrile, pulse 80, breathing 16, blood pressure 130/72. GENERAL APPEARANCE AND MENTAL STATUS: Fair. HEAD/NECK: Normocephalic. Atraumatic. EYES: EOMI. No deformity. EARS: Clear. No ulcers. NOSE: Intact. No lesions. MOUTH: Clear. No discharge. THROAT: Clear. No exudate. LUNGS: Clear. No crackles. CARDIAC: S1, S2. No rub. ABDOMEN: Benign. Bowel sounds positive. GENITALIA/RECTUM: Ly absent. BACK/EXTREMITIES: Edema 0+. NEUROLOGICAL: Alert and motor intact. SKIN: LYMPHATICS: LABORATORY DATA: Hemoglobin 7.7. Creatinine is pending. ASSESSMENT AND PLAN: 1. Acute kidney injury with chronic kidney disease. We will recheck labs. 2. Hyponatremia, improving. We will recheck. 3. Anemia. Would recommend transfusion. 4. Medication based on GFR appropriate. Job ID: [id number]
[2019-05-23 14:12] LABS: Anion Gap 13 mmol/L (10-20); BUN (Urea Nitrogen) 16 mg/dL (9.8-20.1); Calc. Creatinine Clearance 51 mL/min (70-130); Carbon Dioxide 21 mmol/L (23-31); Chloride 103 mmol/L (98-107); Estimated GFR-MDRD 34; Glucose 108 mg/dL (80-115); Sodium 133 mmol/L (136-145)
--- NOTE | 2019-05-23 15:10 | PRG ---
DATE OF SERVICE: 05/23/2019 SUBJECTIVE: Lizzy is now postop day 3 from an incision, drainage, and washout of the right total hip arthroplasty. She is doing relatively well. Her pain has significantly improved and her Physical Therapy demonstrates she has been walking distances greater than 320 feet. OBJECTIVE: GENERAL: She is alert and oriented to person, place, time, and situation. Nonfocal, responsive, and appropriate with examiner. VITAL SIGNS: Temperature 97.8, pulse 80, blood pressure systolics of 160s, respiratory rate 16, and O2 saturations 93% on room air. EXTREMITIES: Her incision is clean. No gross strike through. No erythema. Neurovascularly intact. Hip lengths are symmetric. No malrotation or shortening. IMPRESSION: A 68-year-old female, postoperative day 3, incision, drainage, and washout of a pyogenic total hip arthroplasty. PLAN: Continue current antibiotics. Recheck tomorrow. Job ID: [id number]
[2019-05-23] MEDS: Enoxaparin Sodium 40 MG/0.4 ML SYRINGE SC SCH (20:15)
[2019-05-24] MEDS: CEFAZOLIN 2 GM in Premix Bag 1 BAG IVPB SCH ×2 (06:16→18:45)
[2019-05-24 06:32] LABS: Hemoglobin 8.8 g/dL (12.0-16.0); Mean Corpuscular Hemoglobin 27.5 pg (27.0-31.0); Mean Corpuscular Volume 85.9 fL (78.0-98.0); Mean Platelet Volume 7.2 fL (7.4-10.4); Platelet Count 395 thou/uL (130-400); RBC Distribution Width 14.4 % (11.5-14.5); Red Blood Cell (RBC) Count 3.21 mill/uL (4.20-5.40); White Blood Cell (WBC) Count 11.3 thou/uL (4.8-10.8)
[2019-05-24] MEDS: Famotidine 20 MG TAB PO SCH (09:05)
[2019-05-24] MEDS: Ferrous Gluconate 324 MG TAB PO SCH ×2 (09:05→20:32)
[2019-05-24] MEDS: Senokot S 8.6-50 MG TAB PO SCH ×2 (09:05→20:32)
[2019-05-24] MEDS: PARoxetine 20 MG TAB PO SCH (09:05)
[2019-05-24] MEDS: Aspirin 81 mg Enteric Coated Tablet PO SCH ×2 (09:06→20:32)
[2019-05-24] MEDS: NIFEdipine XL 30 MG TAB PO SCH (09:06)
[2019-05-24] MEDS: Multivitamin W/ Minerals 1 TAB PO SCH (09:06)
[2019-05-24] MEDS: Metoprolol Tartrate 25 MG TAB PO SCH ×2 (09:06→20:35)
--- NOTE | 2019-05-24 12:48 | PRG ---
DATE OF SERVICE: 05/24/2019 SUBJECTIVE: This is a 68-year-old female, being seen for acute kidney injury. The patient denies any nausea, vomiting, or chest pain. OBJECTIVE: GENERAL: The patient is awake and alert. VITAL SIGNS: Afebrile, pulse 70, breathing 16, and blood pressure 181/89. GENERAL APPEARANCE AND MENTAL STATUS: Fair. HEAD/NECK: Normocephalic. Atraumatic. EYES: EOMI. No deformity. EARS: Clear. No ulcers. NOSE: Intact. No lesions. MOUTH: Clear. No discharge. THROAT: Clear. No exudate. LUNGS: Clear. No crackles. CARDIAC: S1, S2. No rub. ABDOMEN: Benign. Bowel sounds positive. GENITALIA/RECTUM: Ly absent. BACK/EXTREMITIES: Edema 0+. NEUROLOGICAL: Alert and motor intact. SKIN: LYMPHATICS: LABORATORY DATA: Labs show sodium 133, creatinine 1.5 yesterday. Today's labs are pending. ASSESSMENT AND PLAN: No indication for dialysis or hypertonic saline. Hyponatremia, improved. Job ID: [id number]
[2019-05-24 14:54] LABS: Anion Gap 12 mmol/L (10-20); BUN (Urea Nitrogen) 13 mg/dL (9.8-20.1); Calc. Creatinine Clearance 54 mL/min (70-130); Calcium 8.5 mg/dL (7.8-10.44); Carbon Dioxide 27 mmol/L (23-31); Chloride 96 mmol/L (98-107); Estimated GFR-MDRD 37; Glucose 103 mg/dL (80-115); Potassium 3.3 mmol/L (3.5-5.1); Sodium 132 mmol/L (136-145)
--- NOTE | 2019-05-24 17:31 | PDOC.PN ---
- Subjective Encounter Start Date: 05/24/19 Encounter Start Time: 17:29 Ms. Emerson was seen today in follow-up for post-op wound infection. She does not have any new complaints, other than she does not feel the food is " edible". - Objective Resuscitation Status - Order Detail: 05/20/19 19:55 Resuscitation Status Routine Resuscitation Status: FULL: Full Resuscitation MAR Reviewed: Yes Vital Signs & Weight: Vital Signs (12 hours) Temp Pulse Resp BP Pulse Ox 05/24/19 16:44 98.0 F 92 18 176/74 H 94 L 05/24/19 13:35 183/90 H 05/24/19 11:16 98.3 F 72 16 183/89 H 94 L 05/24/19 09:06 81 05/24/19 08:58 92 L 05/24/19 07:55 98.3 F 83 18 181/89 H 92 L Weight Weight 200 lb I&O: 05/23/19 05/24/19 05/25/19 06:59 06:59 06:59 Intake Total 2640 1850 Output Total 1650 1350 Balance 990 500 Result Diagrams: 05/24/19 06:15 05/24/19 14:10 Phys Exam - Physical Examination HEENT: PERRLA Respiratory: no wheezing, no rales, no rhonchi, clear to auscultation bilateral Cardiovascular: RRR, no significant murmur, no rub Gastrointestinal: soft, non-tender, no distention, positive bowel sounds Musculoskeletal: no edema, pulses present Dx/Plan (1) HTN (hypertension) Code(s): I10 - ESSENTIAL (PRIMARY) HYPERTENSION Status: Chronic Qualifiers: Hypertension type: essential hypertension Qualified Code(s): I10 - Essential (primary) hypertension (2) Postoperative wound infection of right hip Code(s): T81.49XA - INFECTION FOLLOWING A PROCEDURE, OTHER SURGICAL SITE, INIT Status: Acute Comment: s/p I&D with copious irrigation (3) Hyponatremia Code(s): E87.1 - HYPO-OSMOLALITY AND HYPONATREMIA Status: Acute Comment: resolving - Plan * HTN- patient's blood pressure is elevated, however she says her blood pressure is usually normal " off medication". Will continue the current regimen which has been started here in the hospital and monitor * Hyponatremia- improving. * Post -op wound infection- continue Cefazolin * Awaiting placement
--- NOTE | 2019-05-24 17:37 | PRG ---
DATE OF SERVICE: 05/24/2019 SUBJECTIVE: No pain in the hip. No respiratory symptoms or abdominal pain. She is voiding in the toilet. OBJECTIVE: VITAL SIGNS: Normal temperature. Slight elevation in systolic blood pressure. GENERAL: Awake, alert, and oriented. LUNGS: Clear. HEART: S1 and S2, regular rate. NECK: No jugular vein distention. ABDOMEN: Soft, not distended or tender. MUSCULOSKELETAL: The hip site is unremarkable. LABORATORY DATA: White cell count 11.3, hemoglobin 8.8, and platelets 395. Sodium 132, creatinine 1.42. Microbiology with methicillin-sensitive Staph aureus. The patient had a renal ultrasound, which showed no evidence of hydronephrosis. Nephrology has been involved in the case and they recommend conservative management measures at this point in time. There has been progressive improvement in renal function since admission. ASSESSMENT AND DISCUSSION: Colon cancer, in remission; osteoarthrosis; bilateral hip replacement with infection of right hip due to methicillin-susceptible Staphylococcus aureus; status post replacement but maintenance of the remainder of the implant as per Dr. Teague's note. We will continue on cefazolin, switch to q.12 hours administration schedule in view of renal function. We will have to continue following renal function closely and upgrade the dose to 2 g q.8 accordingly. Treat for 4 to 6 weeks with rifampin orally, after that transition to levofloxacin plus rifampin for another 3 months approximately and then transition to suppressive doxycycline indefinitely. Job ID: [id number]
[2019-05-24] MEDS: Enoxaparin Sodium 40 MG/0.4 ML SYRINGE SC SCH (20:33)
[2019-05-24] MEDS: Rifampin 300 MG CAP PO SCH (21:22)
[2019-05-25] MEDS: CEFAZOLIN 2 GM in Premix Bag 1 BAG IVPB SCH ×2 (06:09→18:03)
[2019-05-25] MEDS: Aspirin 81 mg Enteric Coated Tablet PO SCH ×2 (09:13→21:25)
[2019-05-25] MEDS: Metoprolol Tartrate 25 MG TAB PO SCH ×2 (09:13→21:26)
[2019-05-25] MEDS: Famotidine 20 MG TAB PO SCH (09:13)
[2019-05-25] MEDS: Ferrous Gluconate 324 MG TAB PO SCH ×2 (09:13→21:25)
[2019-05-25] MEDS: PARoxetine 20 MG TAB PO SCH (09:13)
[2019-05-25] MEDS: Rifampin 300 MG CAP PO SCH ×2 (09:14→21:25)
[2019-05-25] MEDS: NIFEdipine XL 30 MG TAB PO SCH (09:14)
[2019-05-25] MEDS: Multivitamin W/ Minerals 1 TAB PO SCH (09:14)
[2019-05-25] MEDS: Senokot S 8.6-50 MG TAB PO SCH ×2 (09:53→21:25)
--- NOTE | 2019-05-25 10:46 | PDOC.PN ---
- Subjective Encounter Start Date: 05/25/19 Encounter Start Time: 10:45 Ms. Emerson was seen today in follow-up of medical management. She does not have any complaints. She says she slept well. She denies any chest pain or dyspnea. She has walked in the halls, and says the pain in her hip is tolerable without medication. - Objective Resuscitation Status - Order Detail: 05/20/19 19:55 Resuscitation Status Routine Resuscitation Status: FULL: Full Resuscitation MAR Reviewed: Yes Vital Signs & Weight: Vital Signs (12 hours) Temp Pulse Resp BP Pulse Ox 05/25/19 04:30 98.2 F 76 18 164/88 H 94 L 05/25/19 00:01 98.2 F 71 18 153/79 H 94 L Weight Weight 200 lb I&O: 05/24/19 05/25/19 05/26/19 06:59 06:59 06:59 Intake Total 1850 530 Output Total 1350 Balance 500 530 Result Diagrams: 05/24/19 06:15 05/24/19 14:10 Phys Exam - Physical Examination HEENT: PERRLA Respiratory: no wheezing, no rales, no rhonchi, clear to auscultation bilateral Cardiovascular: RRR, no significant murmur, no rub Gastrointestinal: soft, non-tender, no distention, positive bowel sounds Musculoskeletal: no edema, pulses present Dx/Plan (1) HTN (hypertension) Code(s): I10 - ESSENTIAL (PRIMARY) HYPERTENSION Status: Chronic Qualifiers: Hypertension type: essential hypertension Qualified Code(s): I10 - Essential (primary) hypertension (2) Postoperative wound infection of right hip Code(s): T81.49XA - INFECTION FOLLOWING A PROCEDURE, OTHER SURGICAL SITE, INIT Status: Acute Comment: s/p I&D with copious irrigation (3) Hyponatremia Code(s): E87.1 - HYPO-OSMOLALITY AND HYPONATREMIA Status: Acute Comment: resolving - Plan * HTN- blood pressure is elevated- she believes it is due to the current hospitalization. Continue Metoprolol, and Nifedipine * Hyponatremia- stable will re-check the bmp * Continue Cefazolin and Rifampin as per ID recommendations.
--- NOTE | 2019-05-25 11:50 | PRG ---
DATE OF SERVICE: 05/25/2019 SUBJECTIVE: Patient was seen and examined at bedside and overnight events noted. Patient denies any shortness of breath or chest pain or palpitation. No history of nausea or vomiting or diarrhea or fever or chills or cramps. OBJECTIVE: GENERAL: This is a well-built female, in no acute distress. VITAL SIGNS: Temperature 98.2, pulse 76, respiratory rate 18, blood pressure 164/88. HEENT: Atraumatic, normocephalic. Oral mucosa is moist NECK: Supple. CARDIOVASCULAR: S1, S2 heard. Rate and rhythm regular. RESPIRATORY: Clear to auscultation. GASTROINTESTINAL: Abdomen is soft. MUSCULOSKELETAL: No tenderness. No edema. DERMATOLOGIC: No skin rash. NEUROLOGIC: Alert and awake and oriented X3. No focal neurologic deficits. Moving all the extremities. PSYCHIATRIC: Mood and affect normal. LABORATORY DATA: . No labs done today. ASSESSMENT AND PLAN: 1. Acute kidney injury, stable. 2. Hyponatremia. No labs. 3. Hypokalemia. Replace and monitor. 4. Edema, controlled. 5. Hypertension, stable. 6. Monitor labs. We will follow. Job ID: [id number]
[2019-05-25] MEDS: Enoxaparin Sodium 40 MG/0.4 ML SYRINGE SC SCH (21:26)
[2019-05-26] MEDS: CEFAZOLIN 2 GM in Premix Bag 1 BAG IVPB SCH ×2 (05:18→17:44)
[2019-05-26 06:05] LABS: Anion Gap 11 mmol/L (10-20); BUN (Urea Nitrogen) 13 mg/dL (9.8-20.1); Calc. Creatinine Clearance 54 mL/min (70-130); Calcium 8.3 mg/dL (7.8-10.44); Carbon Dioxide 30 mmol/L (23-31); Chloride 98 mmol/L (98-107); Estimated GFR-MDRD 37; Glucose 123 mg/dL (80-115); Potassium 3.2 mmol/L (3.5-5.1); Sodium 136 mmol/L (136-145)
[2019-05-26] MEDS: Multivitamin W/ Minerals 1 TAB PO SCH (08:01)
[2019-05-26] MEDS: Metoprolol Tartrate 25 MG TAB PO SCH ×2 (08:01→20:44)
[2019-05-26] MEDS: PARoxetine 20 MG TAB PO SCH (08:01)
[2019-05-26] MEDS: Ferrous Gluconate 324 MG TAB PO SCH ×2 (08:01→20:44)
[2019-05-26] MEDS: Famotidine 20 MG TAB PO SCH (08:01)
[2019-05-26] MEDS: Aspirin 81 mg Enteric Coated Tablet PO SCH ×2 (08:01→20:43)
[2019-05-26] MEDS: NIFEdipine XL 30 MG TAB PO SCH (08:07)
--- NOTE | 2019-05-26 10:34 | PQF ---
KI PERDUE OBIANNETTE [id number] SURG B- [id number] CLINICAL DOCUMENTATION IMPROVEMENT CLARIFICATION FORM: ICD-10 Updated PLEASE DO AN ADDENDUM TO THE PROGRESS NOTE WITH ANY DOCUMENTATION UPDATES OR ADDITIONS AND CARRY THROUGH TO DC SUMMARY. THANK YOU. DATE: 05/26/2019 ATTN:DR. Robson ARROYO Please exercise your independent, professional judgment in responding to the clarification form. Clinical indicators are provided on the bottom of this form for your review. Please check appropriate box(s): [ ] Acute blood loss anemia [ ] Post-op anemia related to acute blood loss [ x ] Other diagnosis: Acute blood loss anemia due to surgical blood loss superimposed on chronic anemia [ ] Unable to determine In addition, please specify: Present on Admission (POA): [ ] Yes [ x ] No [ ] Unable to determine For continuity of documentation, please document condition throughout progress notes and discharge summary. Thank You. CLINICAL INDICATORS - SIGNS / SYMPTOMS / LABS 05/22 HEMOGLOBIN 7.9 HEMATOCRIT 25.3 7/ HEMOGLOBIN 7.7 HEMATOCRIT 24.2 7/6 PN ([place]) ASSESSMENT AND PLAN: 3) . ANEMIA. WOULD RECOMMEND TRANSFUSION RISK: RECENT HIP SX( 05/21) JOSH ([place] ) CKD STAGE 3 ([place]) TREATMENTS LEUK-REDUCED RBC TRANSFUSION 05/23 SERIAL LABS FERGON PO (05/21-PRESENT) THANK YOU! DYLAN (This form is maintained as a part of the permanent medical record) 2014 [employer] All Rights Reserved [email or web address] [phone] [email or web address]
[2019-05-26] MEDS: Senokot S 8.6-50 MG TAB PO SCH ×2 (11:05→20:44)
[2019-05-26] MEDS: Rifampin 300 MG CAP PO SCH ×2 (11:06→21:00)
[2019-05-26] MEDS ORDERED: Potassium Chloride 20 MEQ TAB PO SCH (12:45)
--- NOTE | 2019-05-26 12:58 | PDOC.PN ---
- Subjective Encounter Start Date: 05/26/19 Encounter Start Time: 12:55 Subjective: Feeling better. No fever. Right hip pain has subsided. - Objective Resuscitation Status - Order Detail: 05/20/19 19:55 Resuscitation Status Routine Resuscitation Status: FULL: Full Resuscitation Vital Signs & Weight: Vital Signs (12 hours) Temp Pulse Resp BP Pulse Ox 05/26/19 11:54 98 F 75 12 160/75 H 94 L 05/26/19 08:07 79 05/26/19 08:00 98 F 78 12 179/84 H 95 05/26/19 04:15 98.6 F 79 16 172/81 H 93 L Weight Admit Weight 200 lb Weight 200 lb I&O: 05/25/19 05/26/19 05/27/19 06:59 06:59 06:59 Intake Total 540 1140 Balance 540 1140 Result Diagrams: 05/24/19 06:15 05/26/19 05:27 Phys Exam - Physical Examination Constitutional: NAD obese HEENT: moist MMs Neck: no JVD, supple Respiratory: no wheezing, no rhonchi, clear to auscultation bilateral Cardiovascular: RRR, no significant murmur Gastrointestinal: soft, non-tender, no distention, positive bowel sounds obese Musculoskeletal: no edema Right lateral hip dressing with wound vac noted Neurological: non-focal, moves all 4 limbs Psychiatric: normal affect, A&O x 3 Dx/Plan (1) Septic arthritis of hip Code(s): M00.9 - PYOGENIC ARTHRITIS, UNSPECIFIED Status: Acute (2) CKD (chronic kidney disease) stage 3, GFR 30-59 ml/min Code(s): N18.3 - CHRONIC KIDNEY DISEASE, STAGE 3 (MODERATE) Status: Acute (3) Chronic anemia Code(s): D64.9 - ANEMIA, UNSPECIFIED Status: Acute (4) Acute blood loss as cause of postoperative anemia Code(s): D62 - ACUTE POSTHEMORRHAGIC ANEMIA Status: Acute (5) JOSH (acute kidney injury) Code(s): N17.9 - ACUTE KIDNEY FAILURE, UNSPECIFIED Status: Acute Comment: resolving (6) HTN (hypertension) Code(s): I10 - ESSENTIAL (PRIMARY) HYPERTENSION Status: Chronic Qualifiers: Hypertension type: essential hypertension Qualified Code(s): I10 - Essential (primary) hypertension (7) Hypokalemia Code(s): E87.6 - HYPOKALEMIA Status: Resolved - Plan Continue antibiotics and wound care. -: Replete serum potassium. -: get serum magnesium -: Continue other treatments. -: Follow renal function and CBC * .
--- NOTE | 2019-05-26 14:23 | PRG ---
DATE OF SERVICE: 05/26/2019 SUBJECTIVE: Lizzy is a 68-year-old female who is postoperative day 5 from incision, drainage, and washout of a right hip septic arthroplasty. She is continued to do well. I believe she is going to be transferred to [place] at a long-term facility in that area. We are awaiting transfer. OBJECTIVE: VITAL SIGNS: Temperature 98, pulse 75, respiratory rate 12, blood pressure 160/75. NEUROLOGIC: She is alert and oriented to person, place, time, and situation. Nonfocal. EXTREMITIES: Incision is clean and closed. No erythema. No strike through. No malrotation. No shortening. IMPRESSION: A 68-year-old female, postoperative day 5, right hip incision, drainage, and washout. PLAN: Continue current care. Antibiotic suppression. Stable for discharge from an orthopedic standpoint. Job ID: [id number]
--- NOTE | 2019-05-26 14:36 | PRG ---
DATE OF SERVICE: 05/26/2019 SUBJECTIVE: Patient was seen and examined at bedside and overnight events noted. Patient denies any shortness of breath or chest pain or palpitation. No history of nausea or vomiting or diarrhea or fever or chills or cramps. OBJECTIVE: GENERAL: This is a well-built female, in no apparent distress. VITAL SIGNS: Temperature 97. Heart rate 75. Respiratory rate 12. Blood pressure 160/71. HEENT: Atraumatic, normocephalic. Oral mucosa is moist NECK: Supple. CARDIOVASCULAR: S1, S2 heard. Rate and rhythm regular. RESPIRATORY: Clear to auscultation. GASTROINTESTINAL: Abdomen is soft. MUSCULOSKELETAL: No tenderness. No edema. DERMATOLOGIC: No skin rash. NEUROLOGIC: Alert and awake and oriented X3. No focal neurologic deficits. Moving all the extremities. PSYCHIATRIC: Mood and affect normal. LABORATORY DATA: Potassium is 3.2, BUN is 13, and creatinine 1.4. ASSESSMENT AND PLAN: 1. Acute kidney injury, much better. 2. Hyponatremia, better. 3. Hypokalemia, replace. 4. Edema, controlled. 5. Hypertension. 6. Labs are stable. I will sign off. Please call back with any questions. Job ID: [id number]
[2019-05-26] MEDS: Enoxaparin Sodium 40 MG/0.4 ML SYRINGE SC SCH (20:43)
[2019-05-27] MEDS: CEFAZOLIN 2 GM in Premix Bag 1 BAG IVPB SCH (05:09)
[2019-05-27] MEDS: HYDROcodone/Acetaminophen 10/325 mg Tablet PO PRN ×2 (05:21→09:02)
[2019-05-27 05:30] LABS: #Eosinphils 0.5 thou/uL (0.0-0.7); #Monocytes 0.9 thou/uL (0.11-0.59); #Neutrophils 6.3 thou/uL (1.40-6.50); %Basophils 0.3 % (0.0-1.0); %Eosinophils 5.3 % (0.0-10.0); %Lymphocytes 20.8 % (21.0-51.0); %Monocytes 8.8 % (0.0-10.0); %Neutrophils 64.8 % (42.0-75.0); Mean Corpuscular HGB CONC 31.7 g/dL (32.0-36.0); Mean Corpuscular Hemoglobin 27.3 pg (27.0-31.0); Mean Corpuscular Volume 86.3 fL (78.0-98.0); Mean Platelet Volume 7.3 fL (7.4-10.4); Platelet Count 317 thou/uL (130-400); RBC Distribution Width 14.5 % (11.5-14.5); White Blood Cell (WBC) Count 9.8 thou/uL (4.8-10.8)
[2019-05-27 05:49] LABS: Albumin 2.3 g/dL (3.4-4.8); Anion Gap 10 mmol/L (10-20); BUN (Urea Nitrogen) 11 mg/dL (9.8-20.1); BUN/Creatinine Ratio 8.53; Calc. Creatinine Clearance 60 mL/min (70-130); Carbon Dioxide 31 mmol/L (23-31); Chloride 96 mmol/L (98-107); Estimated GFR-MDRD 41; Glucose 100 mg/dL (80-115); Magnesium 1.5 mg/dL (1.6-2.6); Potassium 3.3 mmol/L (3.5-5.1); Sodium 134 mmol/L (136-145)
[2019-05-27] MEDS ORDERED: Magnesium 2 GM/50 ML 2 GM in Premix Bag 1 BAG IVPB SCH (08:30)
[2019-05-27] MEDS: PARoxetine 20 MG TAB PO SCH (08:58)
[2019-05-27] MEDS: Metoprolol Tartrate 25 MG TAB PO SCH (08:58)
[2019-05-27] MEDS: Multivitamin W/ Minerals 1 TAB PO SCH (08:58)
[2019-05-27] MEDS: Aspirin 81 mg Enteric Coated Tablet PO SCH (08:58)
[2019-05-27] MEDS: Famotidine 20 MG TAB PO SCH (08:59)
[2019-05-27] MEDS: Ferrous Gluconate 324 MG TAB PO SCH (09:00)
[2019-05-27] MEDS ORDERED: Potassium Chloride 20 MEQ TAB PO SCH (09:00)
[2019-05-27] MEDS: Rifampin 300 MG CAP PO SCH (09:00)
[2019-05-27] MEDS: Senokot S 8.6-50 MG TAB PO SCH (09:00)
[2019-05-27] MEDS: NIFEdipine XL 30 MG TAB PO SCH (09:01)
[2019-05-27 09:12] VITALS: BP 168/77; TEMP 98.2
== END 2019-05-27 09:33 | DRG 467 ==
LOC: SURG A 12:51 → SURG B 13:20
PROVIDERS: ADMIT Orthopaedic Surgery; ATTEND Orthopaedic Surgery
PROC: 0SR902A Replacement of Right Hip Joint with Metal on Polyethylene Synthetic Substitute, Uncemented, Open Approach (ICD-10-PCS; principal; 2019-05-21)
PROC: 0SP90JZ Removal of Synthetic Substitute from Right Hip Joint, Open Approach (ICD-10-PCS; 2019-05-21)
PROC: 02HV33Z Insertion of Infusion Device into Superior Vena Cava, Percutaneous Approach (ICD-10-PCS; 2019-05-22)
PROC: B548ZZA Ultrasonography of Superior Vena Cava, Guidance (ICD-10-PCS; 2019-05-22)
DX: T84.51XA Infection and inflammatory reaction due to internal right hip prosthesis, initial encounter (principal); N17.9 Acute kidney failure, unspecified; E87.1 Hypo-osmolality and hyponatremia; N18.4 Chronic kidney disease, stage 4 (severe); D62 Acute posthemorrhagic anemia; M00.9 Pyogenic arthritis, unspecified; Z96.641 Presence of right artificial hip joint; F32.9 Major depressive disorder, single episode, unspecified; I12.9 Hypertensive chronic kidney disease with stage 1 through stage 4 chronic kidney disease, or unspecified chronic kidney disease; E87.6 Hypokalemia; Z90.710 Acquired absence of both cervix and uterus; D63.1 Anemia in chronic kidney disease; M19.90 Unspecified osteoarthritis, unspecified site; B95.62 Methicillin resistant Staphylococcus aureus infection as the cause of diseases classified elsewhere; Z16.11 Resistance to penicillins
CPT/HCPCS: 36415; 36416; 36430; 36569; 76770; 80048; 80053; 80069; 80202; 82570; 82947; 83735; 83930; 83935; 84100; 84156; 85025; 85027; 86140; 86850; 86900; 86901; 87070; 87077; 87186; 87205; C1776; J0690; J1100; J1644; J1650; J2001; J2250; J2405; J2704; J3010; J3370; J3475; J3480; J7050; P9016; Q0163

== ENCOUNTER 2019-06-10 15:22 | Inpatient (IN) | payer MEDICARE ==
[2019-06-10 16:19] VITALS: BMI 31.6
[2019-06-10 17:05] LABS: Hemoglobin 9.2 g/dL (12.0-16.0); Mean Corpuscular HGB CONC 32.5 g/dL (32.0-36.0); Mean Corpuscular Hemoglobin 27.9 pg (27.0-31.0); Mean Corpuscular Volume 86.1 fL (78.0-98.0); Platelet Count 339 thou/uL (130-400); RBC Distribution Width 15.9 % (11.5-14.5); Red Blood Cell (RBC) Count 3.28 mill/uL (4.20-5.40); White Blood Cell (WBC) Count 5.1 thou/uL (4.8-10.8)
[2019-06-10 17:24] LABS: ALT (SGPT) 10 U/L (8-55); AST (SGOT) 71 U/L (5-34); Albumin 2.4 g/dL (3.4-4.8); Alkaline Phosphatase 112 U/L (40-150); Anion Gap 13 mmol/L (10-20); BUN (Urea Nitrogen) 11 mg/dL (9.8-20.1); Bilirubin, Total 0.4 mg/dL (0.2-1.2); CRP (Inflammatory) 6.43 mg/dL (= or < 0.5); Calc. Creatinine Clearance 52 mL/min (70-130); Calcium 8.8 mg/dL (7.8-10.44); Carbon Dioxide 23 mmol/L (23-31); Chloride 99 mmol/L (98-107); Estimated GFR-MDRD 36; Globulin 4.3 g/dL (2.4-3.5); Glucose 106 mg/dL (80-115); Potassium 3.6 mmol/L (3.5-5.1); Protein, Total 6.7 g/dL (6.0-8.3); Sodium 131 mmol/L (136-145)
[2019-06-10] MEDS: Sodium Chloride 0.9% 1,000 ML IV SCH (18:24)
[2019-06-10 18:55] LABS: Band 4 % (5-11); Eosinophils 1 % (0-10); Lymphocytes 21 % (21-51); MDiff Complete? YES; Monocytes 15 % (0-10); Neutrophil 58 % (42-75); Ovalocytes SLIGHT = 2-5 cells (100X) (0-1/hpf); Platelet Morphology Comment Appears Adequate; Polychromasia SLIGHT = 2-3 cells (100X) (0-2/hpf); Reactive Lymphocytes 1 % (0-10)
--- NOTE | 2019-06-10 23:23 | RAD ---
PORTABLE CHEST: 06/10/19 INDICATIONS: Shortness of breath. Comparison made to a prior chest film from April 2018. There is cardiomegaly. There is vascular congestion with interstitial edema. Probable small effusions . No focal consolidation. A PICC line via the left upper extremity overlies the SVC. IMPRESSION: Mild cardiomegaly with vascular and interstitial congestion. POS: OFF
[2019-06-10 23:37] LABS: Lactic Acid 0.6 mmol/L (0.5-2.2)
[2019-06-10 23:41] LABS: Magnesium 1.4 mg/dL (1.6-2.6)
[2019-06-11] MEDS: Sodium Chloride 0.9% 1,000 ML IV SCH ×2 (06:41→18:32)
[2019-06-11] MEDS: cefTRIAXone\\ROCEPHIN 2 GM in Sodium Chloride 0.9% 100 ML IVPB SCH (08:38)
[2019-06-11] MEDS ORDERED: Fentanyl 100 MCG/2 ML VIAL ONE ×3 (08:59→13:33)
[2019-06-11] MEDS ORDERED: Midazolam HCl 2 mg/2 ml Vial ONE ×2 (08:59→10:14)
--- NOTE | 2019-06-11 08:59 | HP ---
CHIEF COMPLAINT: Right hip pain secondary to postoperative infection. 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 Her original primary hip replacement was on April 28, 2019, and she had a subsequent incision drainage and washout on May 20, 2019. She has been followed in clinic since then and Dr. Teague saw her yesterday in clinic and elected to go ahead and readmit the patient for excisional arthroplasty today after she has had a persistent fistula and failed to appreciably improve. Her past medical history is significant for colon cancer and she has had a history of radiation therapy and I believe this has had something to do with her bilateral chronic hip pain, which has resulted in bilateral replacements. PAST SURGICAL HISTORY: She has had a left total hip arthroplasty and most recently a right total hip arthroplasty, colon resection. Please see medication reconciliation form. ALLERGIES: THE PATIENT CLAIMS AN ADHESIVE ALLERGY, BUT NO MEDICATION ALLERGIES. SOCIAL HISTORY: She denies any ethanol or tobacco use. She is retired. REVIEW OF SYSTEMS: She does admit feeling weak and thready, but she denies any shortness of breath. No fevers, chills, nausea, vomiting, or other constitutional symptoms. PHYSICAL EXAMINATION: VITAL SIGNS: Temperature 98.1, pulse 111, respiratory rate 16, O2 saturation is 94% on room air, blood pressure is 150/89. GENERAL: She is alert and oriented to person, place, time, and situation. Nonfocal. NEUROLOGIC: Cranial nerves 2-12 are grossly intact. Pupils are equal, round, reactive to light. Oropharynx benign. CHEST: Clear to auscultation. HEART: Tachy, but without murmurs, rubs or gallops audible. ABDOMEN: Soft, benign. EXTREMITIES: No clubbing, cyanosis, or edema. She has a draining fistula over the right hip. Her incision is mostly healed, but there is a macerated area noted. She is neurovascularly intact in both lower extremities and there is no shortening or malrotation. IMPRESSION: A 68-year-old female with Staphylococcus aureus septic periprosthetic arthritis, right hip. PLAN: 1. The patient will be admitted and the risks, benefits, options, alternatives, and rationale for proceeding with an excisional right hip total hip arthroplasty has been explained in great detail with the patient. She is ready to proceed. All questions were answered. No guarantee of outcome stated or implied. 2. Please see orders. 3. Consult with Dr. Coats. Job ID: [id number]
[2019-06-11] MEDS ORDERED: Tobramycin Sulfate 1.2 GM VIAL ONE (09:48)
[2019-06-11] MEDS ORDERED: Scopolamine 1.5 mg/72 hour Patch ONE (10:14)
[2019-06-11] MEDS ORDERED: ePHEDrine 50 MG/ML VIAL ONE (12:11)
[2019-06-11] MEDS ORDERED: Rocuronium Bromide 10 MG/ML (10ML VIAL) ONE (12:11)
[2019-06-11] MEDS ORDERED: Glycopyrrolate 0.2 MG/ML 5 ML SYRINGE ONE (12:11)
[2019-06-11] MEDS ORDERED: PROPOFOL 200 MG/20 ML VIAL ONE (12:11)
[2019-06-11] MEDS ORDERED: Lidocaine 1% PF 5 ML VIAL ONE (12:11)
[2019-06-11] MEDS ORDERED: PHENYLEPHRINE-NS 100 MCG/ML 10 ML SYRINGE ONE (12:11)
[2019-06-11] MEDS ORDERED: Ondansetron ODT 4 MG TAB PO PRN (12:58)
[2019-06-11] MEDS ORDERED: Bisacodyl 10 MG SUPP PR PRN (12:58)
[2019-06-11] MEDS ORDERED: HYDROcodone/Acetaminophen 10/325 mg Tablet PO PRN ×2 (12:58)
[2019-06-11] MEDS ORDERED: Ondansetron HCl/PF 4 MG/2 ML Vial IVP PRN (13:13)
[2019-06-11] MEDS ORDERED: Promethazine HCl 25 MG/ML VIAL SLOW IVP PRN (13:13)
[2019-06-11] MEDS ORDERED: Promethazine HCl 25 MG/ML VIAL IM PRN ×2 (13:13→13:15)
[2019-06-11] MEDS ORDERED: Naloxone HCl 0.4 mg/ml Vial IV PRN (13:15)
[2019-06-11] MEDS ORDERED: diphenhydrAMINE 50 MG/ML VIAL IM PRN (13:15)
[2019-06-11] MEDS ORDERED: diphenhydrAMINE 50 MG/ML VIAL IVP PRN (13:15)
[2019-06-11] MEDS ORDERED: Communication Order-Pharmacy FS SCH (13:15)
[2019-06-11] MEDS ORDERED: diphenhydrAMINE 25 MG CAP PO PRN (13:15)
[2019-06-11] MEDS ORDERED: Zolpidem Tartrate 5 MG TAB PO PRN (13:15)
--- NOTE | 2019-06-11 13:32 | OP ---
DATE OF PROCEDURE: 06/11/2019 PREOPERATIVE DIAGNOSIS: Septic Staphylococcus pyogenic arthritis, right hip, periprosthetic in nature. POSTOPERATIVE DIAGNOSIS: Septic Staphylococcus pyogenic arthritis, right hip, periprosthetic in nature. OPERATIVE PROCEDURE: Single stage revision arthroplasty of the right hip for infection. MILLING GENERAL SUPERINTENDENT: Robert Hernandes PA-C ANESTHESIA: General via endotracheal tube. COMPONENTS USED: [employer] OmniFit size 5, 200 mm cemented Collared stem with a Trident polyethylene size F acetabular cup with inner diameter 40 mm and a 40 mm metallic femoral head with a neutral offset. FINDINGS: Purulent fistula down to the joint with extension of the skin, failure to completely heal after initial incision, drainage, and washout, changes consistent with Staphylococcus infection and macerations of all surrounding tissues. DRAINS: One 19-[place] GATO drain. SPECIMENS: Tissue specimen sent for culture, Gram stain identification. COMPLICATIONS: None. COUNTS: Correct. INPUT: 2200 mL of crystalloid and 1 unit of packed red blood cells. ESTIMATED BLOOD LOSS: 250. OUTPUT: 200 mL of clear yellow urine. INDICATION FOR SURGERY: Lizzy is a 68-year-old female, who had a primary total hip arthroplasty back in April, who subsequently returned in first part of May with an infected prosthesis. She was taken to the operative suite for incision, drainage, washout, and primary closure. She had been treated with outpatient antibiotics in the form Rocephin, but has failed to appreciably improve. Therefore, she has been readmitted for staged revision. DESCRIPTION OF PROCEDURE: After informed consent was obtained in the preoperative holding area, the patient was taken to the operative suite, where general anesthesia was induced and endotracheal tube was placed and secured. Once this was adequately accomplished, the patient was then positioned appropriately in the left lateral decubitus position using the intermittent hip holders. The right lower extremity was then prepped and draped in usual sterile fashion. Prior to incision, time-out was called. All members of surgical team agreed upon site, surgeon, and patient. Once this completed, the incision was made directly over the patient's old scar. Skin margins were freshened up and we encountered purulent material approximately a 3 cm down with extension into the abductors and IT band. We probably removed 40 mL of purulent drainage and macerated tissue. Once this was fully drained and evacuated, we performed dislocation maneuver and removed the patient's old femoral head and the hip extractor was applied and removed the press-fit stem. The wound was copiously irrigated with normal saline pulsatile lavage. We then were able to remove the patient's acetabular cup and found purulence retro to the cup and there was no significant ingrowth of the cup itself. This was removed in total. The entire wound was copiously irrigated with normal saline. Reaming of the acetabulum was carried about 2 mm. We then used antibiotic impregnated cement and placed the polyethylene cup and this was allowed to cure. Excess cement was removed with curettage. We then turned our attention to femoral preparation and reamed up by about 3 to 4 mm, applied the sequential broaching and then placed a trial to perform reduction maneuver and found it to be quite stable with internal and external rotation in both flexion and extension. We then placed antibiotic impregnated cement inside the canal. We placed our permanent stem and this was allowed to cure. Again after trialing, we went ahead and placed a neutral offset metallic 40 femoral head. The entire wound was again copiously irrigated with normal saline. All wound edges were freshened up with sharp debridement. The IT band was closed with interrupted Vicryl stitch. This was closed over the drain to ensure the drain was not stitched in. The subcutaneous layer was originally closed with #2 Vicryl and then, running 0 Quill stitch was used to closed the subcutaneous layer and Prolene 2-0 was used to reapproximate the skin. Sterile dressing was applied. Procedure terminated without complication. The patient was extubated in the operative suite and taken to the recovery room in stable condition. She will be allowed weightbear as tolerated. Job ID: [id number]
[2019-06-11] MEDS ORDERED: Promethazine HCl 25 MG/ML VIAL ONE (13:43)
--- NOTE | 2019-06-11 16:00 | RAD ---
EXAM: Single view of the right hip HISTORY: Right hip arthroplasty COMPARISON: None FINDINGS: The patient is status post right hip arthroplasty without perihardware lucency or fracture. An adjacent drain is seen. IMPRESSION: Status post right hip arthroplasty without evidence of complication.
--- NOTE | 2019-06-11 17:52 | PDOC.HOSPP ---
- Subjective Subjective: in pacu, has sob+ no chest pain or palp - Objective Vital Signs & Weight: Vital Signs (12 hours) Temp Pulse Resp BP Pulse Ox 06/11/19 15:00 97.0 F L 94 18 147/84 H 93 L 06/11/19 08:35 93 L 06/11/19 08:00 98.3 F 114 H 18 164/92 H 93 L Weight Weight 196 lb Result Diagrams: 06/12/19 09:08 06/12/19 05:15 ROS - Review of Systems All systems: All other ROS were reviewed and found negative. - Medication Medications: Active Medications Generic Name Dose Route Start Last Admin Trade Name Freq PRN Reason Stop Dose Admin Ceftriaxone Sodium 2 gm/ 100 mls @ 200 mls/hr 06/11/19 08:00 06/11/19 08:38 Sodium Chloride IVPB 100 mls 0800 MARA Administration - Exam awake alert Eye: PERRL, anicteric sclera ENT: no oropharyngeal lesions, dry oral mucosa Neck: supple, JVD Heart: RRR, no murmur Respiratory: no wheezes, rales Gastrointestinal: soft, non-tender, normal bowel sounds Extremities: no cyanosis, 1+ LE edema Neurological: CN's grossly intact, no focal deficits Musculoskeletal: normal tone, no muscle wasting Hosp A/P (1) Septic arthritis of hip Code(s): M00.9 - PYOGENIC ARTHRITIS, UNSPECIFIED Status: Acute Qualifiers: Septic arthritis organism: staphylococcal Plan: s/p revision arthroplasty 06/11/2019 (2) CKD (chronic kidney disease) stage 3, GFR 30-59 ml/min Code(s): N18.3 - CHRONIC KIDNEY DISEASE, STAGE 3 (MODERATE) Status: Chronic (3) Chronic anemia Code(s): D64.9 - ANEMIA, UNSPECIFIED Status: Chronic (4) Hyponatremia Code(s): E87.1 - HYPO-OSMOLALITY AND HYPONATREMIA Status: Chronic (5) Depression Code(s): F32.9 - MAJOR DEPRESSIVE DISORDER, SINGLE EPISODE, UNSPECIFIED Status : Chronic Qualifiers: Depression Type: unspecified Qualified Code(s): F32.9 - Major depressive disorder, single episode, unspecified (6) HTN (hypertension) Code(s): I10 - ESSENTIAL (PRIMARY) HYPERTENSION Status: Chronic Qualifiers: - Plan lasix 20mg iv 6am and 2pm, one dose now watch for volume overload, if she does stop iv fluids and give additional 40 iv lasix. small dose coreg, olmesartan, echo for LV function continue asp bid, oral iron, ceftriaxone iv, fentanyl prn will f/u
[2019-06-11] MEDS ORDERED: Furosemide 20 MG/2 ML VIAL SLOW IVP SCH (18:00)
[2019-06-11 18:24] LABS: #Lymphocytes 1.4 thou/uL (1.20-3.40); #Monocytes 1.2 thou/uL (0.11-0.59); #Neutrophils 5.8 thou/uL (1.40-6.50); %Basophils 0.3 % (0.0-1.0); %Eosinophils 0.4 % (0.0-10.0); %Lymphocytes 16.1 % (21.0-51.0); %Monocytes 14.4 % (0.0-10.0); %Neutrophils 68.8 % (42.0-75.0); Hemoglobin 9.3 g/dL (12.0-16.0); Mean Corpuscular HGB CONC 32.8 g/dL (32.0-36.0); Mean Corpuscular Hemoglobin 28.4 pg (27.0-31.0); Mean Corpuscular Volume 86.7 fL (78.0-98.0); Mean Platelet Volume 7.9 fL (7.4-10.4); Platelet Count 330 thou/uL (130-400); RBC Distribution Width 15.1 % (11.5-14.5); Red Blood Cell (RBC) Count 3.27 mill/uL (4.20-5.40); White Blood Cell (WBC) Count 8.5 thou/uL (4.8-10.8)
[2019-06-11 18:47] LABS: ALT (SGPT) 12 U/L (8-55); AST (SGOT) 67 U/L (5-34); Albumin 2.2 g/dL (3.4-4.8); Alkaline Phosphatase 103 U/L (40-150); Anion Gap 14 mmol/L (10-20); BUN (Urea Nitrogen) 12 mg/dL (9.8-20.1); Bilirubin, Total 0.4 mg/dL (0.2-1.2); Calc. Creatinine Clearance 60 mL/min (70-130); Carbon Dioxide 20 mmol/L (23-31); Chloride 104 mmol/L (98-107); Estimated GFR-MDRD 43; Globulin 3.8 g/dL (2.4-3.5); Glucose 102 mg/dL (80-115); Potassium 4.2 mmol/L (3.5-5.1); Sodium 134 mmol/L (136-145)
[2019-06-11] MEDS: Ketorolac Tromethamine 30 MG/ML VIAL IVP PRN (20:04)
[2019-06-11] MEDS: Famotidine 20 MG TAB PO SCH (20:04)
[2019-06-11] MEDS ORDERED: Carvedilol 3.125 MG TAB PO SCH (20:15)
[2019-06-11] MEDS: Ondansetron PF 4 MG/2 ML Vial IVP PRN (20:30)
[2019-06-11] MEDS: Aspirin 81 mg Enteric Coated Tablet PO SCH (20:34)
--- NOTE | 2019-06-12 00:03 | CON ---
DATE OF CONSULTATION: 06/11/2019 REASON FOR CONSULTATION: Persistence of inflammatory changes, right hip infected site, after recent surgery. HISTORY OF PRESENT ILLNESS: A 68-year-old, whom we had seen recently when she was admitted with a history of hypertension, colon cancer, in remission, and bilateral hip replacements with infection of the right hip replacement, which required removal of the acetabular component, but retention of the femoral component. Methicillin-sensitive Staphylococcus aureus was retrieved from the area and the patient was transitioned to IV Rocephin and discharged. Now because of persistence of drainage, Dr. Teague has removed the full implant placed as spacer. The operative report was reviewed and there was evidence of purulence with a fistula down to the joint with extension to the skin. There is maceration of all the tissues. Currently, she is awake. She has minor pain. No headaches, visual symptoms, sore throat, odynophagia, or dysphagia. No cough, sputum production, or chest pain. No abdominal pain or diarrhea. No genitourinary symptoms. PAST MEDICAL HISTORY: Hypertension, colon cancer, in remission, osteoarthrosis, bilateral hip replacements with infection of right hip with methicillin- sensitive Staph aureus, with retention of femoral component and exchange of the acetabular component. FAMILY HISTORY: Noncontributory. SOCIAL HISTORY: Never a smoker. ALLERGIES: ADHESIVE TAPE. CURRENT MEDICATIONS: 1. Dulcolax. 2. Ceftriaxone. 3. Famotidine. 4. Fentanyl. 5. Ketorolac. 6. Naloxone. 7. Zolpidem. PHYSICAL EXAMINATION: VITAL SIGNS: T-max 98.1, BP 147/84, pulse 94, respirations 18, O2 saturation 93. SKIN: With the postop findings in the right hip area. Dressing not removed. She has a PICC line in left upper extremity which appears normal and an indwelling catheter. HEENT: Ocular movements conjugate. Sclerae white. Oral cavity moist. Numerous teeth in place. NECK: Supple. No jugular venous distention. LUNGS: Symmetric, clear breath sounds. HEART: S1 and S2, regular rate. No S3 or S4. ABDOMEN: Soft, not distended or tender. No ascites. No bladder distention. EXTREMITIES: Limitation range of motion of right lower extremity. NEUROLOGIC: Cognitive function appears to be intact. LABORATORY DATA: White cell count 5.1, hemoglobin 9.2, platelets 339. D-dimer 1.35. Sodium 131, creatinine 1.45, which is about the same as last value, but higher than the one in April 20, 2019. B-natriuretic peptide is 1682. The previous hip culture with Staphylococcus aureus which was susceptible to numerous antimicrobials and current sample from the hip with no organisms seen, rare epithelial cells. ASSESSMENT: History of colon cancer, in remission and osteoarthrosis, bilateral hip replacements with infection of the right side due to methicillin-sensitive Staphylococcus aureus, probably by hematogenous spread, status post partial revision + washout of the right hip, now returns with persistence of fistulous drainage and she just underwent removal of the entire implant with placement of a spacer. At this time, we will continue with the Rocephin and rifampin and treat for another 42 days and then transition to oral suppressive therapy with Keflex and rifampin for 3 months and then transition to suppressive therapy with Keflex. After that, indefinitely. Job ID: [id number] MTDD
[2019-06-12] MEDS: Ketorolac Tromethamine 30 MG/ML VIAL IVP PRN ×2 (05:16→21:08)
[2019-06-12] MEDS: Furosemide 20 MG/2 ML VIAL SLOW IVP SCH ×2 (05:21→14:06)
[2019-06-12 06:03] LABS: Anion Gap 10 mmol/L (10-20); BUN (Urea Nitrogen) 12 mg/dL (9.8-20.1); Calc. Creatinine Clearance 54 mL/min (70-130); Calcium 7.6 mg/dL (7.8-10.44); Carbon Dioxide 24 mmol/L (23-31); Chloride 104 mmol/L (98-107); Estimated GFR-MDRD 38; Glucose 107 mg/dL (80-115); Sodium 134 mmol/L (136-145)
[2019-06-12 09:21] LABS: Hemoglobin 8.7 g/dL (12.0-16.0); Mean Corpuscular HGB CONC 33.5 g/dL (32.0-36.0); Mean Corpuscular Hemoglobin 28.6 pg (27.0-31.0); Mean Corpuscular Volume 85.6 fL (78.0-98.0); Mean Platelet Volume 7.8 fL (7.4-10.4); Platelet Count 302 thou/uL (130-400); RBC Distribution Width 15.5 % (11.5-14.5); Red Blood Cell (RBC) Count 3.03 mill/uL (4.20-5.40); White Blood Cell (WBC) Count 6.3 thou/uL (4.8-10.8)
[2019-06-12] MEDS: Losartan 25 MG TAB PO SCH (09:21)
[2019-06-12] MEDS: PARoxetine 20 MG TAB PO SCH (09:22)
[2019-06-12] MEDS: Aspirin 81 mg Enteric Coated Tablet PO SCH ×2 (09:22→21:08)
[2019-06-12] MEDS: Carvedilol 3.125 MG TAB PO SCH ×2 (09:22→17:41)
[2019-06-12] MEDS: Famotidine 20 MG TAB PO SCH ×2 (09:22→21:07)
[2019-06-12] MEDS: Sodium Chloride 0.9% 1,000 ML IV SCH ×2 (09:22→19:09)
[2019-06-12] MEDS: cefTRIAXone\\ROCEPHIN 2 GM in Sodium Chloride 0.9% 100 ML IVPB SCH (09:23)
[2019-06-12 09:45] LABS: Band 2 % (5-11); Eosinophils 1 % (0-10); Lymphocytes 32 % (21-51); MDiff Complete? YES; Monocytes 15 % (0-10); Neutrophil 50 % (42-75); Platelet Morphology Comment Appears Adequate; Polychromasia SLIGHT = 2-3 cells (100X) (0-2/hpf)
--- NOTE | 2019-06-12 13:51 | PDOC.HOSPP ---
- Subjective Subjective: sob is better, is passing extra urine no pain, feels better - Objective Vital Signs & Weight: Vital Signs (12 hours) Temp Pulse Resp BP Pulse Ox 06/12/19 07:12 97.8 F 108 H 18 117/75 96 06/12/19 03:18 97.9 F 108 H 16 128/79 98 06/12/19 02:49 109 H 97 Weight Weight 196 lb I&O: 06/11/19 06/12/19 06/13/19 06:59 06:59 06:59 Intake Total 1830 Output Total 485 Balance 1345 Result Diagrams: 06/12/19 09:08 06/12/19 05:15 ROS - Review of Systems All systems: All other ROS were reviewed and found negative. - Medication Medications: Active Medications Generic Name Dose Route Start Last Admin Trade Name Freq PRN Reason Stop Dose Admin Aspirin 81 mg 06/11/19 21:00 06/12/19 09:22 Ecotrin PO 81 mg BID MARA Administration Carvedilol 3.125 mg 06/12/19 08:00 06/12/19 09:22 Coreg PO 3.125 mg BID-WM MARA Administration Famotidine 20 mg 06/11/19 21:00 06/12/19 09:22 Pepcid PO 20 mg BID MARA Administration Furosemide 20 mg 06/12/19 06:00 06/12/19 05:21 Lasix SLOW IVP 20 mg 0600,1400 MARA Administration Sodium Chloride 1,000 mls @ 75 mls/hr 06/11/19 13:00 06/12/19 09:22 Normal Saline 0.9% IV 1,000 mls .[id number] MARA Administration Ketorolac Tromethamine 15 mg 06/11/19 13:15 06/12/19 05:16 Toradol IVP 06/14/19 13:16 15 mg Q6H PRN Administration Moderate Pain (4-6) Losartan Potassium 25 mg 06/12/19 09:00 06/12/19 09:21 Cozaar PO 25 mg DAILY MARA Administration Ondansetron HCl 4 mg 06/11/19 13:15 06/11/19 20:30 Zofran IVP 4 mg Q6H PRN Administration Nausea/Vomiting Paroxetine HCl 40 mg 06/12/19 09:00 06/12/19 09:22 Paxil PO 40 mg QAM MARA Administration - Exam NAD, awake alert Eye: PERRL, anicteric sclera ENT: no oropharyngeal lesions, moist mucosa Neck: supple, no JVD Heart: RRR, no murmur Respiratory: no wheezes, no rales Gastrointestinal: soft, non-tender, normal bowel sounds Extremities: no cyanosis, no clubbing Neurological: CN's grossly intact, no focal deficits Musculoskeletal: normal tone, no muscle wasting Psychiatric: normal affect, A&O x 3 Hosp A/P (1) Septic arthritis of hip Code(s): M00.9 - PYOGENIC ARTHRITIS, UNSPECIFIED Status: Acute Qualifiers: Septic arthritis organism: staphylococcal (2) CKD (chronic kidney disease) stage 3, GFR 30-59 ml/min Code(s): N18.3 - CHRONIC KIDNEY DISEASE, STAGE 3 (MODERATE) Status: Chronic (3) Chronic anemia Code(s): D64.9 - ANEMIA, UNSPECIFIED Status: Chronic (4) Hyponatremia Code(s): E87.1 - HYPO-OSMOLALITY AND HYPONATREMIA Status: Chronic (5) Depression Code(s): F32.9 - MAJOR DEPRESSIVE DISORDER, SINGLE EPISODE, UNSPECIFIED Status : Chronic Qualifiers: Depression Type: unspecified Qualified Code(s): F32.9 - Major depressive disorder, single episode, unspecified (6) HTN (hypertension) Code(s): I10 - ESSENTIAL (PRIMARY) HYPERTENSION Status: Chronic Qualifiers: - Plan hemostable continue ceftriaxone lasix 6am and 2pm x [address] [facility] bed continue fentanyl prn is off iv fluids, sodium levels are stable Needs to ambulate per ortho adv Dietary consultation for low alb
[2019-06-12] MEDS: Oxacillin 2 GM in Sodium Chloride 0.9% 100 ML IVPB SCH ×2 (16:50→21:12)
[2019-06-12] MEDS: fentaNYL Citrate/PF 2,000 MCG in Sodium Chloride 0.9% 60 ML IV PRN (17:41)
[2019-06-13] MEDS: Oxacillin 2 GM in Sodium Chloride 0.9% 100 ML IVPB SCH ×7 (01:19→23:50)
[2019-06-13] MEDS: Furosemide 20 MG/2 ML VIAL SLOW IVP SCH ×2 (04:54→13:03)
[2019-06-13] MEDS: Sodium Chloride 0.9% 1,000 ML IV SCH ×3 (04:55→15:11)
[2019-06-13 08:04] LABS: #Eosinphils 0.4 thou/uL (0.0-0.7); #Lymphocytes 1.4 thou/uL (1.20-3.40); #Monocytes 0.7 thou/uL (0.11-0.59); #Neutrophils 2.4 thou/uL (1.40-6.50); %Basophils 0.9 % (0.0-1.0); %Eosinophils 9.2 % (0.0-10.0); %Lymphocytes 27.9 % (21.0-51.0); %Monocytes 13.8 % (0.0-10.0); %Neutrophils 48.3 % (42.0-75.0); Hemoglobin 8.1 g/dL (12.0-16.0); Mean Corpuscular HGB CONC 32.6 g/dL (32.0-36.0); Mean Corpuscular Hemoglobin 27.8 pg (27.0-31.0); Mean Corpuscular Volume 85.4 fL (78.0-98.0); Mean Platelet Volume 8.3 fL (7.4-10.4); Platelet Count 253 thou/uL (130-400); RBC Distribution Width 15.5 % (11.5-14.5); Red Blood Cell (RBC) Count 2.92 mill/uL (4.20-5.40); White Blood Cell (WBC) Count 4.9 thou/uL (4.8-10.8)
[2019-06-13] MEDS: PARoxetine 20 MG TAB PO SCH (09:03)
[2019-06-13] MEDS: Aspirin 81 mg Enteric Coated Tablet PO SCH ×2 (09:03→20:09)
[2019-06-13] MEDS: Carvedilol 3.125 MG TAB PO SCH ×2 (09:04→17:04)
[2019-06-13] MEDS: Famotidine 20 MG TAB PO SCH ×2 (09:04→20:09)
[2019-06-13] MEDS: Losartan 25 MG TAB PO SCH (09:04)
--- NOTE | 2019-06-13 12:34 | PDOC.HOSPP ---
- Subjective Subjective: no c/o pain, feels better sob is better, no chest pain or palp is amb with PT - Objective Vital Signs & Weight: Vital Signs (12 hours) Temp Pulse Resp BP Pulse Ox 06/13/19 11:25 98.5 F 98 18 157/94 H 96 06/13/19 08:00 96 06/13/19 07:46 97.5 F L 107 H 18 157/83 H 96 06/13/19 03:55 98.3 F 98 16 148/88 H 98 Weight Admit Weight 196 lb Weight 196 lb I&O: 06/12/19 06/13/19 06/14/19 06:59 06:59 06:59 Intake Total 1830 1715 Output Total 485 825 Balance 1345 890 Result Diagrams: 06/13/19 07:44 06/12/19 05:15 ROS - Review of Systems All systems: All other ROS were reviewed and found negative. - Medication Medications: Active Medications Generic Name Dose Route Start Last Admin Trade Name Freq PRN Reason Stop Dose Admin Aspirin 81 mg 06/11/19 21:00 06/13/19 09:03 Ecotrin PO 81 mg BID MARA Administration Carvedilol 3.125 mg 06/12/19 08:00 06/13/19 09:04 Coreg PO 3.125 mg BID-WM MARA Administration Famotidine 20 mg 06/11/19 21:00 06/13/19 09:04 Pepcid PO 20 mg BID MARA Administration Furosemide 20 mg 06/12/19 06:00 06/13/19 04:54 Lasix SLOW IVP 20 mg 0600,1400 MARA Administration Sodium Chloride 1,000 mls @ 75 mls/hr 06/11/19 13:00 06/13/19 04:55 Normal Saline 0.9% IV Not Given .[id number] MARA Fentanyl Citrate 2,000 mcg/ 100 mls @ 0 mls/hr 06/11/19 13:15 06/12/19 17:41 Sodium Chloride IV 100 mls INF PRN Administration Pain As Directed Oxacillin Sodium 2 gm/ Sodium 100 mls @ 200 mls/hr 06/12/19 17:00 06/13/19 09 :11 Chloride IVPB 100 mls Q4HR MARA Administration Ketorolac Tromethamine 15 mg 06/11/19 13:15 06/12/19 21:08 Toradol IVP 06/14/19 13:16 15 mg Q6H PRN Administration Moderate Pain (4-6) Losartan Potassium 25 mg 06/12/19 09:00 06/13/19 09:04 Cozaar PO 25 mg DAILY MARA Administration Ondansetron HCl 4 mg 06/11/19 13:15 06/11/19 20:30 Zofran IVP 4 mg Q6H PRN Administration Nausea/Vomiting Paroxetine HCl 40 mg 06/12/19 09:00 06/13/19 09:03 Paxil PO 40 mg QAM MARA Administration - Exam NAD, awake alert Eye: PERRL, anicteric sclera ENT: no oropharyngeal lesions, moist mucosa Neck: supple, no JVD Heart: RRR, no gallops Respiratory: no wheezes, rales, rhonchi Gastrointestinal: soft, non-tender, normal bowel sounds Extremities: no clubbing, no edema Neurological: CN's grossly intact, no focal deficits Musculoskeletal: normal tone, normal strength Psychiatric: normal affect, A&O x 3 Hosp A/P (1) Septic arthritis of hip Code(s): M00.9 - PYOGENIC ARTHRITIS, UNSPECIFIED Status: Acute Qualifiers: Septic arthritis organism: staphylococcal (2) CKD (chronic kidney disease) stage 3, GFR 30-59 ml/min Code(s): N18.3 - CHRONIC KIDNEY DISEASE, STAGE 3 (MODERATE) Status: Chronic (3) Chronic anemia Code(s): D64.9 - ANEMIA, UNSPECIFIED Status: Chronic (4) Hyponatremia Code(s): E87.1 - HYPO-OSMOLALITY AND HYPONATREMIA Status: Chronic (5) Depression Code(s): F32.9 - MAJOR DEPRESSIVE DISORDER, SINGLE EPISODE, UNSPECIFIED Status : Chronic Qualifiers: Depression Type: unspecified Qualified Code(s): F32.9 - Major depressive disorder, single episode, unspecified (6) HTN (hypertension) Code(s): I10 - ESSENTIAL (PRIMARY) HYPERTENSION Status: Chronic Qualifiers: - Plan gm -ve stan is growing from her hip cultures, will add cipro with oxacillin. 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
[2019-06-13] MEDS: Ciprofloxacin 500 MG TAB PO SCH (20:09)
[2019-06-13] MEDS: fentaNYL Citrate/PF 2,000 MCG in Sodium Chloride 0.9% 60 ML IV PRN (23:25)
[2019-06-14] MEDS: Ciprofloxacin 500 MG TAB PO SCH ×2 (05:51→20:08)
[2019-06-14] MEDS: Oxacillin 2 GM in Sodium Chloride 0.9% 100 ML IVPB SCH ×5 (05:52→21:11)
[2019-06-14] MEDS: Furosemide 20 MG/2 ML VIAL SLOW IVP SCH (05:52)
[2019-06-14 07:01] LABS: #Eosinphils 0.4 thou/uL (0.0-0.7); #Lymphocytes 1.1 thou/uL (1.20-3.40); #Monocytes 0.6 thou/uL (0.11-0.59); #Neutrophils 2.5 thou/uL (1.40-6.50); %Basophils 0.9 % (0.0-1.0); %Eosinophils 8.8 % (0.0-10.0); %Lymphocytes 24.2 % (21.0-51.0); %Monocytes 12.1 % (0.0-10.0); Hemoglobin 8.1 g/dL (12.0-16.0); Mean Corpuscular HGB CONC 33.4 g/dL (32.0-36.0); Mean Corpuscular Hemoglobin 28.9 pg (27.0-31.0); Mean Corpuscular Volume 86.5 fL (78.0-98.0); Mean Platelet Volume 8.2 fL (7.4-10.4); Platelet Count 275 thou/uL (130-400); RBC Distribution Width 15.6 % (11.5-14.5); Red Blood Cell (RBC) Count 2.82 mill/uL (4.20-5.40); White Blood Cell (WBC) Count 4.7 thou/uL (4.8-10.8)
[2019-06-14] MEDS ORDERED: Carvedilol 6.25 MG TAB PO SCH (08:00)
--- NOTE | 2019-06-14 08:13 | RAD ---
Chest AP view INDICATION: Chest pain COMPARISON: June 10, 2019 FINDINGS: Lungs:Bilateral perihilar airspace opacities greater in the lower lobes has worsened Cardiac silhouette pulmonary vasculature:There is persistent cardiomegaly and worsening pulmonary vas cular congestion Pleural spaces:There are enlarging small bilateral pleural effusions Upper abdomen:No abnormality seen. Osseous structures: No acute osseous abnormality. Additional findings:Left-sided PICC line is stable IMPRESSION: Worsening volume overload or CHF
[2019-06-14] MEDS: Aspirin 81 mg Enteric Coated Tablet PO SCH ×2 (08:17→20:08)
[2019-06-14] MEDS: Losartan 25 MG TAB PO SCH (08:17)
[2019-06-14] MEDS: Famotidine 20 MG TAB PO SCH (08:18)
[2019-06-14] MEDS: PARoxetine 20 MG TAB PO SCH (08:18)
[2019-06-14] MEDS ORDERED: Furosemide 40 MG TAB PO SCH (09:00)
[2019-06-14 10:33] LABS: Anion Gap 10 mmol/L (10-20); BUN (Urea Nitrogen) 14 mg/dL (9.8-20.1); Calc. Creatinine Clearance 46 mL/min (70-130); Carbon Dioxide 26 mmol/L (23-31); Chloride 101 mmol/L (98-107); Estimated GFR-MDRD 31; Glucose 112 mg/dL (80-115); Potassium 3.4 mmol/L (3.5-5.1); Sodium 134 mmol/L (136-145)
--- NOTE | 2019-06-14 12:08 | PDOC.HOSPP ---
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 - Medication Medications: Active Medications Generic Name Dose Route Start Last Admin Trade Name Freq PRN Reason Stop Dose Admin Aspirin 81 mg 06/11/19 21:00 06/14/19 08:17 Ecotrin PO 81 mg BID MARA Administration Ciprofloxacin 500 mg 06/13/19 20:00 06/14/19 05:51 Cipro PO 500 mg 0600,1999 MARA Administration Famotidine 20 mg 06/11/19 21:00 06/14/19 08:18 Pepcid PO 20 mg BID MARA Administration Fentanyl Citrate 2,000 mcg/ 100 mls @ 0 mls/hr 06/11/19 13:15 06/13/19 23:25 Sodium Chloride IV 100 mls INF PRN Administration Pain As Directed Oxacillin Sodium 2 gm/ Sodium 100 mls @ 200 mls/hr 06/12/19 17:00 06/14/19 08 :16 Chloride IVPB 100 mls Q4HR MARA Administration Sodium Chloride 1,000 mls @ 10 mls/hr 06/13/19 13:00 06/13/19 15:11 Normal Saline 0.9% IV 1,000 mls .Q24H MARA Administration Ketorolac Tromethamine 15 mg 06/11/19 13:15 06/12/19 21:08 Toradol IVP 06/14/19 13:16 15 mg Q6H PRN Administration Moderate Pain (4-6) Losartan Potassium 50 mg 06/14/19 09:00 06/14/19 08:17 Cozaar PO 50 mg DAILY MARA Administration Ondansetron HCl 4 mg 06/11/19 13:15 06/11/19 20:30 Zofran IVP 4 mg Q6H PRN Administration Nausea/Vomiting Paroxetine HCl 40 mg 06/12/19 09:00 06/14/19 08:18 Paxil PO 40 mg QAM MARA Administration - Exam NAD, awake alert Eye: PERRL, anicteric sclera ENT: no oropharyngeal lesions, moist mucosa Neck: supple, no JVD Heart: RRR, no gallops Respiratory: CTAB, rales Gastrointestinal: soft, non-tender, normal bowel sounds Extremities: no clubbing, no edema Neurological: CN's grossly intact, no focal deficits Psychiatric: normal affect, A&O x 3 Hosp A/P (1) Septic arthritis of hip Code(s): M00.9 - PYOGENIC ARTHRITIS, UNSPECIFIED Status: Acute Qualifiers: Septic arthritis organism: staphylococcal Laterality: right Qualified Code(s): M00.051 - Staphylococcal arthritis, right hip (2) CKD (chronic kidney disease) stage 3, GFR 30-59 ml/min Code(s): N18.3 - CHRONIC KIDNEY DISEASE, STAGE 3 (MODERATE) Status: Chronic (3) Chronic anemia Code(s): D64.9 - ANEMIA, UNSPECIFIED Status: Chronic (4) Hyponatremia Code(s): E87.1 - HYPO-OSMOLALITY AND HYPONATREMIA Status: Chronic (5) Depression Code(s): F32.9 - MAJOR DEPRESSIVE DISORDER, SINGLE EPISODE, UNSPECIFIED Status : Chronic Qualifiers: Depression Type: unspecified Qualified Code(s): F32.9 - Major depressive disorder, single episode, unspecified (6) HTN (hypertension) Code(s): I10 - ESSENTIAL (PRIMARY) HYPERTENSION Status: Chronic Qualifiers: (7) Acute exacerbation of CHF (congestive heart failure) Code(s): I50.9 - HEART FAILURE, UNSPECIFIED Status: Acute Qualifiers: Heart failure type: systolic Qualified Code(s): I50.23 - Acute on chronic systolic (congestive) heart failure - Plan continue lasix at 40mg 6am and 2pm coreg, artem is on oxacillin and cipro to mobilize with PT as tolerated awaiting placement in [facility]
[2019-06-14] MEDS: Sodium Chloride 0.9% 1,000 ML IV SCH (13:13)
[2019-06-14] MEDS: Furosemide 40 MG/4 ML VIAL SLOW IVP SCH (15:37)
[2019-06-14] MEDS: Carvedilol 3.125 MG TAB PO SCH (17:21)
[2019-06-15] MEDS: Oxacillin 2 GM in Sodium Chloride 0.9% 100 ML IVPB SCH ×4 (01:07→14:01)
[2019-06-15] MEDS: Ondansetron PF 4 MG/2 ML Vial IVP PRN (05:17)
[2019-06-15] MEDS: Furosemide 40 MG/4 ML VIAL SLOW IVP SCH ×2 (05:21→14:25)
[2019-06-15 05:58] LABS: Anion Gap 10 mmol/L (10-20); BUN (Urea Nitrogen) 13 mg/dL (9.8-20.1); Calc. Creatinine Clearance 49 mL/min (70-130); Calcium 7.3 mg/dL (7.8-10.44); Carbon Dioxide 26 mmol/L (23-31); Chloride 105 mmol/L (98-107); Estimated GFR-MDRD 34; Glucose 91 mg/dL (80-115); Sodium 138 mmol/L (136-145)
[2019-06-15] MEDS: Ciprofloxacin 500 MG TAB PO SCH (05:59)
--- NOTE | 2019-06-15 08:39 | EKG ---
Test Reason : Blood Pressure : / mmHG Vent. Rate : 116 BPM Atrial Rate : 116 BPM P-R Int : 150 ms QRS Dur : 084 ms QT Int : 316 ms P-R-T Axes : 040 035 118 degrees QTc Int : 439 ms Sinus tachycardia T wave abnormality, consider lateral ischemia Abnormal ECG When compared with ECG of 20-APR-2019 11:41, Nonspecific T wave abnormality now evident in Inferior leads T wave inversion now evident in Lateral leads Confirmed by DR. Luz HUANG ([id number]) on 06/15/2019 8:39:41 AM Referred By: CARA Confirmed By:DR. Luz HUANG
[2019-06-15] MEDS ORDERED: Famotidine 20 MG TAB PO SCH (09:00)
[2019-06-15] MEDS: Carvedilol 3.125 MG TAB PO SCH (09:03)
[2019-06-15] MEDS: PARoxetine 20 MG TAB PO SCH (09:03)
[2019-06-15] MEDS: Aspirin 81 mg Enteric Coated Tablet PO SCH (09:03)
[2019-06-15] MEDS: Losartan 25 MG TAB PO SCH (09:03)
[2019-06-15] MEDS ORDERED: cefTRIAXone\\ROCEPHIN 2 GM in Sodium Chloride 0.9% 100 ML IVPB SCH (14:00)
[2019-06-15] MEDS: Sodium Chloride 0.9% 1,000 ML IV SCH (14:01)
[2019-06-15 15:39] VITALS: BP 142/81; TEMP 98.8
== END 2019-06-15 15:08 | DRG 466 ==
LOC: SURG A 15:22
PROVIDERS: ADMIT Orthopaedic Surgery; ATTEND Orthopaedic Surgery
PROC: 0SR9029 Replacement of Right Hip Joint with Metal on Polyethylene Synthetic Substitute, Cemented, Open Approach (ICD-10-PCS; principal; 2019-06-11)
PROC: 0SP90JZ Removal of Synthetic Substitute from Right Hip Joint, Open Approach (ICD-10-PCS; 2019-06-11)
DX: T84.51XA Infection and inflammatory reaction due to internal right hip prosthesis, initial encounter (principal); I50.23 Acute on chronic systolic (congestive) heart failure; M00.051 Staphylococcal arthritis, right hip; C18.9 Malignant neoplasm of colon, unspecified; E87.1 Hypo-osmolality and hyponatremia; I13.0 Hypertensive heart and chronic kidney disease with heart failure and stage 1 through stage 4 chronic kidney disease, or unspecified chronic kidney disease; B95.8 Unspecified staphylococcus as the cause of diseases classified elsewhere; Z96.643 Presence of artificial hip joint, bilateral; N18.3 Chronic kidney disease, stage 3 (moderate); D63.1 Anemia in chronic kidney disease; F32.9 Major depressive disorder, single episode, unspecified; B95.7 Other staphylococcus as the cause of diseases classified elsewhere; Z79.2 Long term (current) use of antibiotics; Y83.9 Surgical procedure, unspecified as the cause of abnormal reaction of the patient, or of later complication, without mention of misadventure at the time of the procedure
CPT/HCPCS: 36415; 36430; 71045; 80048; 80053; 82550; 83605; 83735; 83880; 85025; 85379; 85652; 86140; 86850; 86900; 86901; 87070; 87077; 87186; 87205; 93005; 93010; 93306; C1713; C1776; J0696; J1885; J1940; J2001; J2250; J2405; J2550; J2700; J2704; J3010; J3260; J3370; J3490; P9016

== ENCOUNTER 2023-01-09 20:44 | Inpatient (IN) | payer OTHER ==
[2023-01-09] MEDS ORDERED: Morphine 2 MG/ML VIAL ONE (21:54)
[2023-01-09] MEDS ORDERED: PROPOFOL 20 ML ONE (22:18)
[2023-01-09 22:55] LABS: #Lymphocytes 1.1 thou/uL (1.20-3.40); #Monocytes 1.5 thou/uL (0.11-0.59); #Neutrophils 9.4 thou/uL (1.40-6.50); %Lymphocytes 9.5 % (21.0-51.0); %Monocytes 12.3 % (0.0-10.0); %Neutrophils 78.1 % (42.0-75.0); Hemoglobin 9.6 g/dL (12.0-16.0); Mean Corpuscular HGB CONC 32.3 g/dL (32.0-36.0); Mean Corpuscular Hemoglobin 27.8 pg (27.0-31.0); Mean Corpuscular Volume 86.1 fl (78.0-98.0); Mean Platelet Volume 8.3 fL (7.4-10.4); Platelet Count 217 10x3/uL (130-400); RBC Distribution Width 14.7 % (11.5-14.5); Red Blood Cell (RBC) Count 3.46 mill/uL (4.20-5.40)
[2023-01-09 23:17] LABS: ALT (SGPT) 9 U/L (8-55); AST (SGOT) 14 U/L (5-34); Albumin 3.3 g/dL (3.4-4.8); Alkaline Phosphatase 126 U/L (40-110); Anion Gap 11 mmol/L (10-20); BUN (Urea Nitrogen) 27 mg/dL (9.8-20.1); Bilirubin, Total 0.6 mg/dL (0.2-1.2); Calc. Creatinine Clearance 0 mL/min (70-130); Calcium 8.4 mg/dL (7.8-10.44); Carbon Dioxide 19 mmol/L (23-31); Chloride 104 mmol/L (98-107); Estimated GFR 17; Globulin 3.2 g/dL (2.4-3.5); Glucose 116 mg/dL (83-110); Protein, Total 6.5 g/dL (5.8-8.1); Sodium 130 mmol/L (136-145)
[2023-01-10 00:34] VITALS: BMI 33.4
[2023-01-10] MEDS ORDERED: CEFAZOLIN 2 GM in Sodium Chloride 0.9% 100 ML IVPB SCH (07:30)
[2023-01-10] MEDS ORDERED: Vancomycin 1 GM in Premix Bag 1 BAG IVPB SCH (07:30)
[2023-01-10 07:41] LABS: INR-International Normal Ratio 1.1
[2023-01-10 07:42] LABS: PTT 35.5 sec (22.9-36.1)
[2023-01-10] MEDS: Sodium Chloride 0.9% 1,000 ML IV SCH ×2 (15:57→19:51)
[2023-01-10] MEDS ORDERED: hydrALAZINE 20 MG/ML VIAL SLOW IVP PRN (18:36)
[2023-01-11 06:04] LABS: #Monocytes 0.9 thou/uL (0.11-0.59); #Neutrophils 4.8 thou/uL (1.40-6.50); %Basophils 0.3 % (0.0-1.0); %Eosinophils 0.3 % (0.0-10.0); %Lymphocytes 14.5 % (21.0-51.0); %Monocytes 13.8 % (0.0-10.0); %Neutrophils 71.1 % (42.0-75.0); Hemoglobin 8.4 g/dL (12.0-16.0); Mean Corpuscular HGB CONC 32.5 g/dL (32.0-36.0); Mean Corpuscular Hemoglobin 27.9 pg (27.0-31.0); Mean Platelet Volume 8.6 fL (7.4-10.4); Platelet Count 208 10x3/uL (130-400); RBC Distribution Width 14.4 % (11.5-14.5); Red Blood Cell (RBC) Count 2.99 mill/uL (4.20-5.40); White Blood Cell (WBC) Count 6.8 10x3/uL (4.8-10.8)
[2023-01-11 06:09] LABS: Hemoglobin A1c 5.2 % (4.0-6.0)
[2023-01-11 06:24] LABS: ALT (SGPT) 7 U/L (8-55); AST (SGOT) 11 U/L (5-34); Albumin 2.8 g/dL (3.4-4.8); Alkaline Phosphatase 109 U/L (40-110); Anion Gap 11 mmol/L (10-20); BUN (Urea Nitrogen) 32 mg/dL (9.8-20.1); Bilirubin, Total 0.4 mg/dL (0.2-1.2); Calc. Creatinine Clearance 27 mL/min (70-130); Calcium 8.1 mg/dL (7.8-10.44); Carbon Dioxide 17 mmol/L (23-31); Cardiac Risk 3.6 (Less than 4.5); Chloride 109 mmol/L (98-107); Cholesterol 132 mg/dl (< 200 Desired); Estimated GFR 17; Glucose 99 mg/dL (83-110); HDL Cholesterol 37 mg/dL (>60 Neg Risk); Iron 8 ug/dL (50-170); Iron 9 ug/dL (50-170); Iron Binding Capacity, Total 209 mcg/dL (265-497); Iron Binding Capacity, Total 214 mcg/dL (265-497); LDL Cholesterol, Calculated 73 mg/dL; Magnesium 1.9 mg/dL (1.6-2.6); Potassium 4.1 mmol/L (3.5-5.1); Protein, Total 5.8 g/dL (5.8-8.1); Sodium 133 mmol/L (136-145); Triglycerides 110 mg/dL (Less than 150)
[2023-01-11] MEDS ORDERED: Vancomycin 1 GM/200 ML (FROZEN) BAG ONE (06:29)
[2023-01-11 06:42] LABS: Ferritin 204.94 ng/mL (10-291); Thyroid Stimulating Hormone 0.953 uIU/mL (0.35-4.94)
[2023-01-11] MEDS ORDERED: Bupivacaine PF 0.5% 30 ML VIAL ONE (07:12)
[2023-01-11] MEDS ORDERED: fentaNYL PF 100 MCG/2 ML SYRINGE ONE (07:15)
[2023-01-11] MEDS ORDERED: CEFAZOLIN 2 GM VIAL ONE (07:27)
[2023-01-11] MEDS ORDERED: Sodium Chloride 0.9% 100 ML ONE (07:27)
[2023-01-11] MEDS ORDERED: Succinylcholine Chloride 100 MG/5 ML SYRINGE FS ONE (07:38)
[2023-01-11] MEDS ORDERED: Rocuronium Bromide 10 MG/ML (10ML VIAL) ONE (07:38)
[2023-01-11] MEDS ORDERED: Ondansetron PF 4 MG/2 ML Vial ONE ×2 (07:38→10:57)
[2023-01-11] MEDS ORDERED: PROPOFOL 200 MG/20 ML VIAL ONE (07:38)
[2023-01-11] MEDS ORDERED: Albumin 5% 0 ML ONE (08:22)
[2023-01-11] MEDS ORDERED: Albumin 5% 500 ML ONE (08:22)
[2023-01-11 09:09] LABS: Bilirubin Negative (Negative); Blood, Urine 2+ (Negative); Clarity Extra Turbid (Clear); Glucose, Urine (Dipstick) Normal (Negative); Ketone, Urine Negative (Negative); Leukocyte 500 Leu/uL (Negative); Nitrite Negative (Negative); Protein, Urine (Dipstick) 200 mg/dL (Neg-Trace); Specific Gravity, Urine 1.006 (1.002-1.036); Squamous Epithelial None Seen HPF (0-3); Urobilinogen Normal mg/dL (Less than 2)
[2023-01-11 09:18] LABS: Bacteria/HPF 2+ HPF (None Seen); WBC/HPF Greater than 50 HPF (0-3)
[2023-01-11] MEDS ORDERED: Vancomycin 1 GM VIAL ONE (09:20)
[2023-01-11] MEDS ORDERED: Promethazine HCl 25 MG/ML VIAL ONE (10:55)
[2023-01-11 11:02] LABS: Hemoglobin 8.3 g/dL (12.0-16.0)
[2023-01-11 11:48] LABS: Bacteria/HPF 2+ HPF (None Seen); Bilirubin Negative (Negative); Blood, Urine 2+ (Negative); Clarity Turbid (Clear); Glucose, Urine (Dipstick) Normal (Negative); Ketone, Urine Negative (Negative); Leukocyte 500 Leu/uL (Negative); Nitrite Negative (Negative); Protein, Urine (Dipstick) 70 mg/dL (Neg-Trace); RBC/HPF 21-50 HPF (0-3); Squamous Epithelial None Seen HPF (0-3); Urobilinogen Normal mg/dL (Less than 2); WBC/HPF Greater than 50 HPF (0-3)
[2023-01-11] MEDS: cefTRIAXone\\ROCEPHIN 2 GM in Sodium Chloride 0.9% 100 ML IVPB SCH (16:11)
[2023-01-11] MEDS: Sodium Chloride 0.9% 1,000 ML IV SCH ×2 (16:11→20:41)
[2023-01-12] MEDS: Sodium Chloride 0.9% 1,000 ML IV SCH (03:24)
[2023-01-12] MEDS ORDERED: HYDROcodone/Acetaminophen 7.5/325 mg Tablet PO PRN (10:02)
[2023-01-12] MEDS ORDERED: Fentanyl 100 MCG/2 ML VIAL SLOW IVP PRN (10:05)
[2023-01-12] MEDS: Amlodipine 5 MG TAB PO SCH (10:30)
[2023-01-12] MEDS: HYDROcodone/Acetaminophen 7.5/325 mg Tablet PO PRN ×2 (11:13→20:14)
[2023-01-12] MEDS: cefTRIAXone\\ROCEPHIN 2 GM in Sodium Chloride 0.9% 100 ML IVPB SCH (13:01)
[2023-01-12] MEDS ORDERED: Iopamidol 30 ML ONE (14:03)
[2023-01-12] MEDS ORDERED: fentaNYL PF 100 MCG/2 ML SYRINGE ONE (14:11)
[2023-01-12] MEDS ORDERED: Famotidine/PF 20 mg/2ml Vial ONE (14:12)
[2023-01-12] MEDS ORDERED: PHENYLEPHRINE-NS 100 MCG/ML 10 ML SYRINGE ONE (14:21)
[2023-01-12] MEDS ORDERED: Ondansetron PF 4 MG/2 ML Vial ONE (14:21)
[2023-01-12] MEDS ORDERED: Metoclopramide HCl 10 MG/2 ML VIAL ONE (14:21)
[2023-01-12] MEDS ORDERED: Dexamethasone 20 MG/5 ML VIAL ONE (14:21)
[2023-01-12] MEDS ORDERED: diphenhydrAMINE 50 MG/ML VIAL ONE (14:21)
[2023-01-12] MEDS ORDERED: Lidocaine 1% PF 5 ML VIAL ONE (14:21)
[2023-01-12] MEDS ORDERED: PROPOFOL 200 MG/20 ML VIAL ONE (14:21)
[2023-01-12] MEDS ORDERED: Promethazine HCl 25 MG/ML VIAL IM PRN (14:59)
[2023-01-12] MEDS ORDERED: Ondansetron HCl/PF 4 MG/2 ML Vial IVP PRN (14:59)
[2023-01-12] MEDS: Ferrous Sulfate 325 MG TAB PO SCH (18:38)
[2023-01-13 06:49] LABS: Mean Corpuscular HGB CONC 32.6 g/dL (32.0-36.0); Mean Corpuscular Hemoglobin 28.9 pg (27.0-31.0); Mean Corpuscular Volume 88.8 fl (78.0-98.0); Mean Platelet Volume 8.6 fL (7.4-10.4); Platelet Count 238 10x3/uL (130-400); RBC Distribution Width 14.7 % (11.5-14.5); Red Blood Cell (RBC) Count 3.46 mill/uL (4.20-5.40); White Blood Cell (WBC) Count 10.8 10x3/uL (4.8-10.8)
[2023-01-13 07:08] LABS: Anion Gap 18 mmol/L (10-20); BUN (Urea Nitrogen) 35 mg/dL (9.8-20.1); Calc. Creatinine Clearance 32 mL/min (70-130); Carbon Dioxide 13 mmol/L (23-31); Chloride 109 mmol/L (98-107); Estimated GFR 21; Glucose 131 mg/dL (83-110); Potassium 4.6 mmol/L (3.5-5.1); Sodium 135 mmol/L (136-145)
[2023-01-13] MEDS: Amlodipine 5 MG TAB PO SCH (09:01)
[2023-01-13] MEDS: HYDROcodone/Acetaminophen 7.5/325 mg Tablet PO PRN ×2 (09:01→20:35)
[2023-01-13] MEDS: Ferrous Sulfate 325 MG TAB PO SCH ×2 (09:01→18:00)
[2023-01-13] MEDS: cefTRIAXone\\ROCEPHIN 2 GM in Sodium Chloride 0.9% 100 ML IVPB SCH (12:32)
[2023-01-14 06:39] LABS: Anion Gap 12 mmol/L (10-20); BUN (Urea Nitrogen) 41 mg/dL (9.8-20.1); Calc. Creatinine Clearance 31 mL/min (70-130); Calcium 8.3 mg/dL (7.8-10.44); Carbon Dioxide 17 mmol/L (23-31); Chloride 111 mmol/L (98-107); Estimated GFR 21; Glucose 113 mg/dL (83-110); Potassium 3.9 mmol/L (3.5-5.1); Sodium 136 mmol/L (136-145)
[2023-01-14] MEDS: Amlodipine 5 MG TAB PO SCH (08:43)
[2023-01-14] MEDS: Ferrous Sulfate 325 MG TAB PO SCH ×2 (08:43→17:27)
[2023-01-14] MEDS: cefTRIAXone\\ROCEPHIN 2 GM in Sodium Chloride 0.9% 100 ML IVPB SCH (10:12)
[2023-01-14] MEDS: HYDROcodone/Acetaminophen 7.5/325 mg Tablet PO PRN (13:34)
[2023-01-15] MEDS: Ferrous Sulfate 325 MG TAB PO SCH ×2 (09:15→18:55)
[2023-01-15] MEDS: Amlodipine 5 MG TAB PO SCH (09:15)
[2023-01-15] MEDS: HYDROcodone/Acetaminophen 7.5/325 mg Tablet PO PRN (09:17)
[2023-01-15] MEDS: Cyclobenzaprine 10 MG TAB PO SCH ×2 (10:53→12:54)
[2023-01-15 12:17] LABS: Anion Gap 13 mmol/L (10-20); BUN (Urea Nitrogen) 36 mg/dL (9.8-20.1); Calc. Creatinine Clearance 32 mL/min (70-130); Calcium 8.5 mg/dL (7.8-10.44); Carbon Dioxide 16 mmol/L (23-31); Chloride 110 mmol/L (98-107); Estimated GFR 21; Glucose 97 mg/dL (83-110); Potassium 4.1 mmol/L (3.5-5.1); Sodium 135 mmol/L (136-145)
[2023-01-15] MEDS: cefTRIAXone\\ROCEPHIN 2 GM in Sodium Chloride 0.9% 100 ML IVPB SCH (12:52)
[2023-01-16 04:48] LABS: Anion Gap 10 mmol/L (10-20); BUN (Urea Nitrogen) 33 mg/dL (9.8-20.1); Calc. Creatinine Clearance 31 mL/min (70-130); Calcium 8.4 mg/dL (7.8-10.44); Carbon Dioxide 20 mmol/L (23-31); Chloride 110 mmol/L (98-107); Estimated GFR 21; Glucose 118 mg/dL (83-110); Potassium 4.1 mmol/L (3.5-5.1); Sodium 136 mmol/L (136-145)
[2023-01-16] MEDS: Amlodipine 5 MG TAB PO SCH (08:59)
[2023-01-16] MEDS: Ferrous Sulfate 325 MG TAB PO SCH (08:59)
[2023-01-16] MEDS ORDERED: Aspirin 81 mg Enteric Coated Tablet PO SCH (09:00)
[2023-01-16] MEDS: cefTRIAXone\\ROCEPHIN 2 GM in Sodium Chloride 0.9% 100 ML IVPB SCH (11:20)
[2023-01-16] MEDS: HYDROcodone/Acetaminophen 7.5/325 mg Tablet PO PRN (11:21)
[2023-01-16 12:02] VITALS: BP 128/70; TEMP 97.6
== END 2023-01-16 13:51 | disposition swing bed (61) | DRG 467 ==
LOC: ERS 20:44 → MERGE 22:38 → T4-A 22:38 → SURG A 01-11 14:18
PROVIDERS: ADMIT Orthopaedic Surgery; ATTEND Orthopaedic Surgery
PROC: 0SR Lower Joints, Replacement (ICD-10-PCS; principal; 2023-01-11)
PROC: 0SPA0JZ Removal of Synthetic Substitute from Right Hip Joint, Acetabular Surface, Open Approach (ICD-10-PCS; 2023-01-11)
PROC: 0SB90ZZ Excision of Right Hip Joint, Open Approach (ICD-10-PCS; 2023-01-11)
PROC: 30233N1 Transfusion of Nonautologous Red Blood Cells into Peripheral Vein, Percutaneous Approach (ICD-10-PCS; 2023-01-11)
PROC: 0T778DZ Dilation of Left Ureter with Intraluminal Device, Via Natural or Artificial Opening Endoscopic (ICD-10-PCS; 2023-01-12)
PROC: BT1F1ZZ Fluoroscopy of Left Kidney, Ureter and Bladder using Low Osmolar Contrast (ICD-10-PCS; 2023-01-12)
PROC: 02HV33Z Insertion of Infusion Device into Superior Vena Cava, Percutaneous Approach (ICD-10-PCS; 2023-01-15)
PROC: B5181ZA Fluoroscopy of Superior Vena Cava using Low Osmolar Contrast, Guidance (ICD-10-PCS; 2023-01-15)
PROC: B548ZZA Ultrasonography of Superior Vena Cava, Guidance (ICD-10-PCS; 2023-01-15)
DX: T84.020A Dislocation of internal right hip prosthesis, initial encounter (principal); E87.1 Hypo-osmolality and hyponatremia; N13.1 Hydronephrosis with ureteral stricture, not elsewhere classified; N18.4 Chronic kidney disease, stage 4 (severe); N39.0 Urinary tract infection, site not specified; N17.9 Acute kidney failure, unspecified; T84.51XA Infection and inflammatory reaction due to internal right hip prosthesis, initial encounter; Z20.822 Contact with and (suspected) exposure to COVID-19; Y84.2 Radiological procedure and radiotherapy as the cause of abnormal reaction of the patient, or of later complication, without mention of misadventure at the time of the procedure; Y83.1 Surgical operation with implant of artificial internal device as the cause of abnormal reaction of the patient, or of later complication, without mention of misadventure at the time of the procedure; B96.20 Unspecified Escherichia coli [E. coli] as the cause of diseases classified elsewhere; D50.9 Iron deficiency anemia, unspecified; I12.9 Hypertensive chronic kidney disease with stage 1 through stage 4 chronic kidney disease, or unspecified chronic kidney disease; Z96.642 Presence of left artificial hip joint; D63.1 Anemia in chronic kidney disease; Z90.49 Acquired absence of other specified parts of digestive tract; Z90.710 Acquired absence of both cervix and uterus; Z90.89 Acquired absence of other organs; Z85.038 Personal history of other malignant neoplasm of large intestine
CPT/HCPCS: 36415; 36430; 36569; 71045; 74176; 74420; 76770; 80048; 80053; 80061; 81001; 82728; 83036; 83540; 83550; 83735; 84145; 84443; 85025; 85027; 85610; 85652; 85730; 86140; 86850; 86900; 86901; 87040; 87070; 87086; 87205; 88305; 88331; 93005; 93010; 96374; 96375; C1713; C1747; C1751; C1776; C1874; C1889; J0696; J1100; J1200; J2272; J2405; J2550; J2704; J2765; J3370; J3370-JW; J3490; J7050; P9016; P9045; Q9967; S0020; S0028; U0003; U0005